=== PATIENT | male | born 1975 | race Caucasian/White ===

== ENCOUNTER 2021-08-30 14:02 | Outpatient (REF) | payer OTHER, SELFPAY ==
--- NOTE | ~2021-08-30 | XR_ITS ---
EXAMINATION: XR CHEST CLINICAL INFORMATION: Chest pain COMPARISON: None TECHNIQUE: 2 views of the chest were obtained. FINDINGS: No significant abnormality is noted involving the heart, lungs, mediastinum, bony thorax or soft tissues. XR/XR chest 2V IMPRESSION: Unremarkable examination.
== END 2021-08-30 14:03 | disposition home or self-care (01) ==
LOC: HO.XRAY 14:02
PROVIDERS: PCP Physician Assistant; Visit Provider Nurse Practitioner Family
DX: R07.89 Other chest pain (principal)
CPT/HCPCS: 71046

== ENCOUNTER 2021-08-31 08:43 | Outpatient (REF) | payer OTHER, SELFPAY ==
[2021-08-31 09:07] LABS: MANUAL DIFF FLAG NO
[2021-08-31 09:21] LABS: Basophils Absolute Auto 0.1 X10*3/uL (0.0-0.2); Basophils Percent Auto 0.6 % (0-2); Eosinophils Absolute Auto 0.1 X10*3/uL (0.0-0.4); Eosinophils Percent Auto 1.1 % (0-4); Imm Gran Abs Auto 0.08 X10*3/uL (0.00-0.03); Imm Gran Pct Auto 0.8 % (0.0-0.4); Lymphocytes Absolute Auto 1.6 X10*3/uL (1.2-4.9); Mean Corpuscular HGB Conc 34.1 g/dl (31.0-36.0); Mean Corpuscular Volume 85.1 fL (80.0-98.0); Mean Platelet Volume 8.6 fL (9.4-12.4); Monocytes Absolute Auto 0.6 X10*3/uL (0.1-1.2); Monocytes Percent Auto 5.4 % (2-11); Neutrophils Absolute Auto 8.1 x10*3/uL (2.0-8.3); Neutrophils Percent Auto 77.1 % (45-73); Platelet Count 533 X10*3/uL (160-400); Red Blood Count 5.17 X10*6/uL (4.60-5.80); Red Cell Distribution Width 13.9 % (11.0-16.0); White Blood Count 10.6 X10*3/uL (4.8-10.8)
[2021-08-31 09:48] LABS: Alanine Aminotransferase 35 U/L (0-40); Albumin Level 4.5 g/dL (3.5-5.0); Alkaline Phosphatase 82 U/L (39-117); Anion Gap 13 (12-20); Aspartate Amino Transferase 17 U/L (5-37); Bilirubin Total 0.4 mg/dL (0.0-1.0); Blood Urea Nitrogen 16 mg/dL (9-16); Calcium 10.5 mg/dL (8.4-10.2); Carbon Dioxide 26 mmol/L (22-29); Chloride 106 mmol/L (96-108); Cholesterol 207 mg/dL; Estimated Glomerular Filt Rate > 60; Glucose Fasting 108 mg/dL (60-99); HDL Cholesterol 44 mg/dL; LDL Cholesterol Calculated 139 mg/dl; Potassium 4.9 mmol/L (3.3-5.1); Sodium 140 mmol/L (135-145); Total Protein 7.5 g/dL (6.5-8.0); Triglycerides 121 mg/dL
[2021-08-31 10:10] LABS: TSH reflex Free T4 0.77 uIU/mL (0.32-4.0); Vitamin D 25-OH Total 26.4 ng/mL (>30)
== END 2021-08-31 08:44 | disposition home or self-care (01) ==
LOC: HO.LAB 08:43
PROVIDERS: PCP Physician Assistant; Visit Provider Nurse Practitioner Family
DX: Z00.00 Encounter for general adult medical examination without abnormal findings (principal); I10 Essential (primary) hypertension; E78.00 Pure hypercholesterolemia, unspecified; F41.9 Anxiety disorder, unspecified; F32.A Depression, unspecified
CPT/HCPCS: 36415; 80053; 80061; 82306; 84443; 85025

== ENCOUNTER 2021-10-18 14:27 | Outpatient (REF) | payer OTHER, SELFPAY ==
[2021-10-18 14:59] LABS: Baso%MD 0.9 %; Eos%MD 1.5 %; Hematocrit 41.1 % (42.0-52.0); IG%MD 0.4 %; Lymph%MD 17.8 %; Mean Corpuscular HGB Conc 34.1 g/dl (31.0-36.0); Mean Corpuscular Hemoglobin 29.1 pg (27.0-33.0); Mean Corpuscular Volume 85.4 fL (80.0-98.0); Mean Platelet Volume 9.4 fL (9.4-12.4); Neut%MD 72.4 %; Platelet Count 470 X10*3/uL (160-400); Red Blood Count 4.81 X10*6/uL (4.60-5.80); Red Cell Distribution Width 14.2 % (11.0-16.0); White Blood Count 10.6 X10*3/uL (4.8-10.8)
[2021-10-18 15:37] LABS: Band Neutrophils Percent 1 % (3-5); Basophils Abs Manual 0.4 X10*3/uL (0.0-0.2); Basophils Percent Manual 4 % (0-2); Eosinophils Absolute Manual 0.1 X10*3/uL (0.0-0.4); Eosinophils Percent Manual 1 % (0-4); Lymphocytes Absolute Manual 1.2 X10*3/uL (1.2-4.9); Lymphocytes Percent Manual 11 % (20-40); Monocytes Absolute Manual 0.5 X10*3/uL (0.1-1.2); Monocytes Percent Manual 5 % (2-11); Neutrophils Absolute Manual 8.4 X10*3/uL (2.0-8.3); Neutrophils Percent Manual 78 % (45-73); Platelet Estimate NORMAL (NORMAL); Platelet Morphology Comment NORMAL; RBC Morphology NORMAL
[2021-10-18 15:44] LABS: Ferritin 58 ng/mL (20-250)
== END 2021-10-18 14:28 | disposition home or self-care (01) ==
LOC: HO.LAB 14:27
PROVIDERS: PCP Physician Assistant; Visit Provider Nurse Practitioner Family
DX: D75.839 Thrombocytosis, unspecified (principal)
CPT/HCPCS: 36415; 82728; 85007; 85027

== ENCOUNTER 2021-11-02 07:44 | Outpatient (REF) | payer OTHER, SELFPAY ==
[2021-11-02 09:31] LABS: Baso%MD 0.4 %; Eos%MD 1.1 %; Hematocrit 43.1 % (42.0-52.0); Hemoglobin 14.9 g/dl (14.0-18.0); IG%MD 0.5 %; Lymph%MD 14.8 %; Mean Corpuscular HGB Conc 34.6 g/dl (31.0-36.0); Mean Corpuscular Hemoglobin 29.5 pg (27.0-33.0); Mean Corpuscular Volume 85.3 fL (80.0-98.0); Mean Platelet Volume 9.3 fL (9.4-12.4); Mono%MD 5.4 %; Neut%MD 77.8 %; Platelet Count 486 X10*3/uL (160-400); Red Blood Count 5.05 X10*6/uL (4.60-5.80); Red Cell Distribution Width 13.9 % (11.0-16.0); White Blood Count 9.4 X10*3/uL (4.8-10.8)
[2021-11-02 09:51] LABS: Alanine Aminotransferase 37 U/L (0-40); Albumin Level 4.4 g/dL (3.5-5.0); Alkaline Phosphatase 85 U/L (39-117); Anion Gap 15 (12-20); Aspartate Amino Transferase 19 U/L (5-37); Bilirubin Direct 0.3 mg/dL (0.0-0.5); Bilirubin Total 0.9 mg/dL (0.0-1.0); Blood Urea Nitrogen 15 mg/dL (9-16); Calcium 10.7 mg/dL (8.4-10.2); Carbon Dioxide 25 mmol/L (22-29); Chloride 103 mmol/L (96-108); Estimated Glomerular Filt Rate > 60; Glucose Random 97 mg/dL (60-115); Iron 134 mcg/dL (45-160); Percent Iron Saturation 34 % (15-50); Potassium 4.7 mmol/L (3.3-5.1); Sodium 138 mmol/L (135-145); Total Iron Binding Capacity 392 mcg/dL (228-428); Total Protein 7.5 g/dL (6.5-8.0); Unsaturated Iron Binding 258 ug/dL
[2021-11-02 10:11] LABS: Ferritin 72 ng/mL (20-250)
[2021-11-02 11:32] LABS: Atypical Lymph Absolute Manual 0.1 x10*3/uL; Atypical Lymphs Percent Manual 1 % (0-6); Band Neutrophils Percent 0 % (3-5); Basophils Abs Manual 0.1 X10*3/uL (0.0-0.2); Basophils Percent Manual 1 % (0-2); Eosinophils Absolute Manual 0.1 X10*3/uL (0.0-0.4); Eosinophils Percent Manual 1 % (0-4); Lymphocytes Absolute Manual 1.6 X10*3/uL (1.2-4.9); Lymphocytes Percent Manual 17 % (20-40); Monocytes Absolute Manual 0.6 X10*3/uL (0.1-1.2); Monocytes Percent Manual 6 % (2-11); Neutrophils Percent Manual 74 % (45-73)
[2021-11-02 11:33] LABS: Platelet Estimate SLIGHTLY INCREASED (NORMAL); Platelet Morphology Comment NORMAL; RBC Morphology NORMAL
[2021-11-03 16:01] LABS: Calcium (PTHI) 10.4 mg/dL (8.6-10.3); PTHI 26 pg/mL (14-64)
[2021-11-04 20:36] LABS: IgA 180 mg/dL (47-310); IgG 1043 mg/dL (600-1640); IgM 100 mg/dL (50-300)
== END 2021-11-02 07:45 | disposition home or self-care (01) ==
LOC: HO.LAB 07:44
PROVIDERS: Internal Medicine Medical Oncology; PCP Physician Assistant; Visit Provider Physician Assistant
DX: R10.12 Left upper quadrant pain (principal); E83.52 Hypercalcemia
CPT/HCPCS: 36415; 80053; 80076; 82248; 82728; 82784; 83540; 83970; 85007; 85027; 86334

== ENCOUNTER 2021-11-09 07:44 | Outpatient (RCR) | payer OTHER, SELFPAY ==
--- NOTE | 2021-11-09 09:45 | MHC.PT.EP ---
[facility] [place] Office [place] Office [place] Office [address] Michael Castañeda [address] [phone] F: [phone] F: [phone] F: [phone] F: [phone] Physical Therapy Plan of Care Date of Evaluation: Date of Surgery: Diagnosis: STRAIN OF MUSCLES,FASCIA AND TENDON AT SHOULDER Assessment: 46 YO MALE REF TO PT W PROGRESSIVE BILAT PARASCAP/ SH PAIN. HE IS RIGHT HAND DOMINANT- OBJECTIVELY, Pt HAS DECR STRENGTH IN SH ABD AND ER, (+) SCAPULAR WINGING Rt > Lt; (+) SOFT TISSUE IRRIT W TrPS AYDIN UT/ PARSCAP/ POST RC, AND PAIN IN GLOBAL PARASCAP/ POST RC. FUNCTIONAL LIMITATIONS INCLUDE LIMITED REACH/ CARRY/ LIFTING, PROLONGED SITTING, OR ADLS REQ CERV/ UPPER TRUNK ROTATION (DRIVING)- HE CURRENTLY HAS BEEN DOING CARPENTRY SIDEWORK . Of NOTE, Pt MENTIONED RECENT PASSING OF HER FATHER AND HIS INVOLVEMENT W HOSPICE AND MANAGING HIS GRIEF, WHICH HAS INFLUENCED HIS TISSUE TENSION- HE REASSURED HE F/U REGULARLY W HIS MD. Pt WOULD BENEFIT FROM PT TO ADDRESS THE ABOVE FINDINGS, PAIN MGMT, DEV SELF- SX MGMT STRATEGIES, INCREASE SCAP STAB/SRENGTH , AND ASSIST Pt W RETRUNING TO REG LEVEL OF FUNCTION/ WORK TOLERANCE. Frequency and Duration: The patient will be seen 2 x WK x 4 WKS Short Term Goals: *Pt INDEP W SELF-CORRECT POSTURE / BODY MECHANICS TO NEUTRAL IN VARIED POSTURES IN 1 wk *Pt'S SH/ PARASCAP PAIN DECR TO 2-3/10 W REG ADLs IN 2 WKS *Pt DEMON PROPER SCAP / RHOMBOID MM ACTIV IN 1 WK Halfway Goals: *Pt INDEP HEP PROGR AND SELF-SX MGMT STRATEGIES FOR AYDIN SH/ UPPER BACK PAIN IN 4 WKS Pt RESUME REG ADLs TO DEBBIE EVIDENT IN IMPROVED SPADI BY 8-10 POINTS ( AT EVAL 60 /130 ) IN 4 WKS *Pt SIMUL 3:3 ADLs / WORK TASKS W PROPER MECHANICS (DECR SH AND CERV STRAIN) IN 4 WKS *Pt DEMON IMPROVED STRENGTH IN AYDIN SH/ SCAP BY 1/2-1 GRADE IN 4 WKS Treatment Plan: Modalities to reduce pain, spasms and effusion. Manual therapy to restore motion and function. Therapeutic exercise to improve strength and flexibility. Neuromuscular re-education for posture and balance. Therapeutic activities to return to functional activities of daily living. Electronically signed by: Maria T WhittakerPT Please sign and return to therapist. Thank you for your referral.
--- NOTE | 2021-11-29 08:33 | MHC.PT.DC ---
[facility] [place] Office [place] Office [place] Office [address] Michael Castañeda 140 [facility] [phone] F: [phone] F: [phone] F: [phone] F: [phone] Physical Therapy Discharge Report Diagnosis: STRAIN OF MUSCLES,FASCIA AND TENDON AT SHOULDER Date of Surgery: Date of Evaluation: 11/09/21 Date of Discharge: 11/29/21 Treatments to Date: 1 Cancellations to Date: 2 No Shows to Date: 3 Discharge Status: Visit Non-compliance Discharge Summary: AT INITIAL PT POLO Pt PRESENTED AND APPEARED TO BE A GOOD CANDIDATE FOR PT- HE HAS NOT ATTENDED ANY SCHED PT APPTS, DESPITE OUR PHONE CALLS AND REMINDERS. HE IS D/C THIS DATE IN ACCORDANCE W OUR DEPT NO-SHOW POLICY. HE DID NOT MEET HIS GOALS. Electronically signed by: Maria T WhittakerPT Please sign and return to therapist. Thank you for your referral.
== END 2021-11-29 08:32 | disposition home or self-care (01) ==
LOC: HO.PT 07:44
PROVIDERS: PCP Physician Assistant; Visit Provider Physician Assistant
DX: S46.811D Strain of other muscles, fascia and tendons at shoulder and upper arm level, right arm, subsequent encounter (principal); S46.812D Strain of other muscles, fascia and tendons at shoulder and upper arm level, left arm, subsequent encounter
CPT/HCPCS: 97110; 97162

== ENCOUNTER 2021-11-12 08:38 | Outpatient (REF) | payer OTHER, SELFPAY ==
--- NOTE | ~2021-11-12 | US_ITS ---
EXAMINATION: US ABDOMEN COMPLETE CLINICAL INFORMATION: Left upper quadrant pain, thrombocytosis. Question splenomegaly. COMPARISON: None TECHNIQUE: Real-time imaging of the abdominal viscera. FINDINGS: PANCREAS: Normal. ABDOMINAL AORTA: The proximal, mid, and distal segments are normal in caliber. INFERIOR VENA CAVA: Visualized portions are normal. LIVER: The liver is normal in size. The liver contour is normal. There is diffuse hepatic cysts increased echogenicity with areas of focal fatty sparing adjacent to gallbladder. No focal hepatic lesion. There is no intrahepatic biliary duct dilatation seen. GALLBLADDER: Normal. The gallbladder is physiologically distended without evidence of stones, sludge, polyps, wall thickening or pericholecystic fluid. COMMON BILE DUCT: Normal in caliber measuring 0.4 cm in diameter. RIGHT KIDNEY: Normal. No hydronephrosis. No renal calculi or focal parenchymal lesions. The kidney measures 11.6 cm in maximum dimension. LEFT KIDNEY: Normal. No hydronephrosis. No renal calculi or focal parenchymal lesions. The kidney measures 12.8 cm in maximum dimension. SPLEEN: Normal. The spleen measures 11.6 cm in maximum dimension. FREE FLUID: None. US/US abdomen complete IMPRESSION: Hepatic steatosis with areas of focal fatty sparing adjacent to gallbladder.
== END 2021-11-12 08:39 | disposition home or self-care (01) ==
LOC: HO.HMGCX 08:38
PROVIDERS: PCP Physician Assistant; Visit Provider Physician Assistant
DX: R10.12 Left upper quadrant pain (principal); D75.839 Thrombocytosis, unspecified
CPT/HCPCS: 76700

== ENCOUNTER 2021-12-09 07:54 | Outpatient (REF) | payer OTHER, SELFPAY ==
[2021-12-09 08:55] LABS: Hematocrit 42.9 % (42.0-52.0); Hemoglobin 14.3 g/dl (14.0-18.0); Mean Corpuscular HGB Conc 33.3 g/dl (31.0-36.0); Mean Corpuscular Hemoglobin 29.1 pg (27.0-33.0); Mean Corpuscular Volume 87.2 fL (80.0-98.0); Mean Platelet Volume 9.1 fL (9.4-12.4); Platelet Count 468 X10*3/uL (160-400); Red Blood Count 4.92 X10*6/uL (4.60-5.80); Red Cell Distribution Width 13.6 % (11.0-16.0); White Blood Count 16.3 X10*3/uL (4.8-10.8)
[2021-12-09 09:40] LABS: Vitamin D 25-OH Total 44.7 ng/mL (>30)
[2021-12-09 10:37] LABS: Alanine Aminotransferase 32 U/L (0-40); Albumin Level 4.4 g/dL (3.5-5.0); Alkaline Phosphatase 83 U/L (39-117); Anion Gap 15 (12-20); Aspartate Amino Transferase 17 U/L (5-37); Bilirubin Total 0.8 mg/dL (0.0-1.0); Blood Urea Nitrogen 16 mg/dL (9-16); Calcium 10.4 mg/dL (8.4-10.2); Carbon Dioxide 26 mmol/L (22-29); Chloride 104 mmol/L (96-108); Estimated Glomerular Filt Rate > 60; Glucose Fasting 95 mg/dL (60-99); Potassium 5.2 mmol/L (3.3-5.1); Sodium 140 mmol/L (135-145); Total Protein 7.2 g/dL (6.5-8.0)
[2021-12-09 11:36] LABS: Appearance Urine CLEAR; Color Urine YELLOW; Glucose Urine UA NEG (NEG); Leukocyte Esterase Urine NEG (NEG); Nitrite Urine NEG (NEG); PH 5.5 (5.0-8.0); Specific Gravity - Urine >= 1.030 (1.005-1.025); Urine Blood NEG (NEG); Urine Ketones NEG (NEG); Urine Protein TRACE MG/DL (NEG-TRACE)
== END 2021-12-09 07:55 | disposition home or self-care (01) ==
LOC: HO.LAB 07:54
PROVIDERS: PCP Physician Assistant; Visit Provider Physician Assistant
DX: E83.52 Hypercalcemia (principal); R30.0 Dysuria; I10 Essential (primary) hypertension
CPT/HCPCS: 36415; 80053; 81003; 82306; 85027; 99202

== ENCOUNTER 2021-12-20 07:19 | Outpatient (REF) | payer OTHER, SELFPAY ==
[2021-12-20 07:37] LABS: MANUAL DIFF FLAG NO
[2021-12-20 08:27] LABS: Basophils Absolute Auto 0.1 X10*3/uL (0.0-0.2); Basophils Percent Auto 0.9 % (0-2); Eosinophils Absolute Auto 0.2 X10*3/uL (0.0-0.4); Eosinophils Percent Auto 2.4 % (0-4); Hematocrit 42.1 % (42.0-52.0); Hemoglobin 14.1 g/dl (14.0-18.0); Imm Gran Abs Auto 0.04 X10*3/uL (0.00-0.03); Imm Gran Pct Auto 0.5 % (0.0-0.4); Lymphocytes Absolute Auto 1.2 X10*3/uL (1.2-4.9); Mean Corpuscular HGB Conc 33.5 g/dl (31.0-36.0); Mean Corpuscular Hemoglobin 29.1 pg (27.0-33.0); Mean Corpuscular Volume 86.8 fL (80.0-98.0); Mean Platelet Volume 9.4 fL (9.4-12.4); Monocytes Absolute Auto 0.5 X10*3/uL (0.1-1.2); Monocytes Percent Auto 5.9 % (2-11); Neutrophils Absolute Auto 6.8 x10*3/uL (2.0-8.3); Neutrophils Percent Auto 76.3 % (45-73); Platelet Count 494 X10*3/uL (160-400); Red Blood Count 4.85 X10*6/uL (4.60-5.80); Red Cell Distribution Width 13.4 % (11.0-16.0); White Blood Count 8.9 X10*3/uL (4.8-10.8)
[2021-12-20 09:01] LABS: Albumin Level 4.4 g/dL (3.5-5.0); Anion Gap 11 (12-20); Blood Urea Nitrogen 12 mg/dL (9-16); Calcium 10.1 mg/dL (8.4-10.2); Carbon Dioxide 28 mmol/L (22-29); Chloride 105 mmol/L (96-108); Estimated Glomerular Filt Rate > 60; Glucose Random 108 mg/dL (60-115); Sodium 139 mmol/L (135-145)
[2021-12-21 11:27] LABS: Calcium (PTHI) 10.3 mg/dL (8.6-10.3); PTHI 42 pg/mL (16-77)
== END 2021-12-20 07:20 | disposition home or self-care (01) ==
LOC: HO.LAB 07:19
PROVIDERS: Internal Medicine Endocrinology, Diabetes & Metabolism; PCP Physician Assistant; Visit Provider Physician Assistant
DX: E83.52 Hypercalcemia (principal); I10 Essential (primary) hypertension; D72.829 Elevated white blood cell count, unspecified
CPT/HCPCS: 36415; 80048; 82040; 83970; 85025

== ENCOUNTER 2022-03-04 07:42 | Outpatient (REF) | payer OTHER, SELFPAY ==
--- NOTE | ~2022-03-04 | XR_ITS ---
EXAMINATION: XR ANKLE, RIGHT CLINICAL INFORMATION: M25.571 - Pain in right ankle and joints of right foot COMPARISON: Radiographs right foot 09/23/2019. TECHNIQUE: The right ankle is imaged in 4 views. FINDINGS: The malleoli are intact and the ankle mortise is symmetric. There is no fracture or dislocation or destructive process. Talar dome shows no visible osteochondral lesion. The retrocalcaneal recess is preserved. There is a borderline tiny posterior calcaneal spur. There is spurring from the dorsal talus similar to prior radiographs. XR/XR ankle RT min 3V IMPRESSION: -No fracture, dislocation, or arthropathy. -Tiny posterior calcaneal spur.
== END 2022-03-04 07:43 | disposition home or self-care (01) ==
LOC: HO.HOSX 07:42
PROVIDERS: Visit Provider Physician Assistant
DX: M19.071 Primary osteoarthritis, right ankle and foot (principal)
CPT/HCPCS: 73610; 99202

== ENCOUNTER 2022-09-21 07:10 | Outpatient (REF) | payer OTHER, SELFPAY ==
[2022-09-21 07:42] LABS: Hematocrit 43.6 % (42.0-52.0); Hemoglobin 14.7 g/dl (14.0-18.0); Mean Corpuscular HGB Conc 33.7 g/dl (31.0-36.0); Mean Corpuscular Hemoglobin 28.7 pg (27.0-33.0); Mean Platelet Volume 8.6 fL (9.4-12.4); Platelet Count 488 X10*3/uL (160-400); Red Blood Count 5.13 X10*6/uL (4.60-5.80); Red Cell Distribution Width 13.8 % (11.0-16.0); White Blood Count 12.4 X10*3/uL (4.8-10.8)
[2022-09-21 08:27] LABS: Creatinine Urine 359.88 mg/dL; Microalbum/Creatinine Ratio Ur 10.5 ug/mg cr
[2022-09-21 08:29] LABS: Alanine Aminotransferase 17 U/L (0-40); Albumin Level 4.6 g/dL (3.5-5.0); Alkaline Phosphatase 96 U/L (39-117); Anion Gap 17 (12-20); Aspartate Amino Transferase 12 U/L (5-37); Bilirubin Total 0.7 mg/dL (0.0-1.0); Blood Urea Nitrogen 12 mg/dL (9-16); Calcium 10.5 mg/dL (8.4-10.2); Carbon Dioxide 27 mmol/L (22-29); Chloride 102 mmol/L (96-108); Cholesterol 239 mg/dL; Estimated Glomerular Filt Rate > 60; Glucose Fasting 93 mg/dL (60-99); HDL Cholesterol 46 mg/dL; LDL Cholesterol Calculated 173 mg/dl; Potassium 4.6 mmol/L (3.3-5.1); Sodium 141 mmol/L (135-145); Total Protein 7.4 g/dL (6.5-8.0); Triglycerides 104 mg/dL
[2022-09-21 08:44] LABS: TSH reflex Free T4 0.94 uIU/mL (0.32-4.0)
== END 2022-09-21 07:11 | disposition home or self-care (01) ==
LOC: HO.LAB 07:10
PROVIDERS: Internal Medicine Endocrinology, Diabetes & Metabolism; PCP Physician Assistant; Visit Provider Physician Assistant
DX: I10 Essential (primary) hypertension (principal)
CPT/HCPCS: 36415; 80053; 80061; 82043; 84443; 85027

== ENCOUNTER 2023-07-18 13:18 | Outpatient (AMB) | payer OTHER, SELFPAY ==
--- NOTE | 2023-07-18 13:39 | A.OFFPC_ITS ---
Vital Signs 07/18/23 13:41 Height 6 ft Weight 215 lb 6 oz BMI 29.2 BP 120/62 Blood Pressure Location Lt brachial Position Sitting Pulse 87 Pulse Source Pulse Oximeter Pulse Oximetry (%) 97 Oxygen Delivery Method Room Air Intake Visit Reasons: Chronic back pain Intake Note: Patient is here to follow up on Chronic back pain and right foot pain( numbness, tinging). Silver Wrapper Required: No Skin Pass Operator: Not Required per policy Accompanied by: Self / Same As Patient Allergies No Known Allergies Allergy (Verified 07/18/23 13:40) Tobacco use date assessed: 07/18/23 Dental Screening Dental Screen Date: 07/18/23 Did you have a dental visit in the last 12 months?: Yes Did you have a dental problem in the last 6 months where you did not have access to dental care?: No Was dental information given to patient?: Patient has dentist HPI HPI Comments History of Present Illness Details 48-year-old male past medical history si gnificant for hypertension, thrombocytosis, anxiety, depression. Patient of [facility] last seen in August. Patient presents today for chronic back pain. Patient reports intermittent back pains for few months. Patient states he has right-sided lumbar back pain radiating down right leg. Patient states occasionally feels like both legs are falling asleep, tingling feeling. Denies bilateral extremity leg numbness or weakness denies any bowel or bladder incontinence. Patient denies any acute injury or falls. Patient previously prescribed naproxen 500 mg b.i.d. for ankle arthritis, requesting refill on this. Refill sent to patient's pharmacy patient also reports difficulty sleeping and rolling over went back get stiff requesting muscle relaxer. Will send cyclobenzaprine 5 mg p.r.n. at for lumbar muscle spasm. [facility] Medical History (Updated 07/18/23 @ 13:54 by WES [place]) Full dentures Anxiety Depression Surgical History (Updated 07/18/23 @ 13:46 by JO Blas) History of dental surgery Family History (Updated 07/18/23 @ 13:46 by JO Blas) Father Lung cancer HTN (hypertension) Hyperlipidemia Colon cancer Mother Breast cancer Hyperlipidemia Thyroid disease IBS (irritable colon syndrome) Maternal Grandmother Paget's bone disease IBS (irritable colon syndrome) Other Mental health disorder (Updated 07/18/23 @ 13:46 by JO Blas) Household Members: Family Housing: House Alcohol intake: current Alcohol intake frequency: holidays/special occasions only Patient Tobacco Use Status: Current everyday Tobacco user Tobacco use type: Cigarette Cigarette Packs Per Day: 1 Cigarettes Per Day: 20 Years Smoked: 20 e-Cigarette/Vaping Use: Former Use Second Hand Smoke Exposure: Yes service: No Current occupational status: other (Self employed) Cognitive needs: No Hearing needs: No Vision needs: No Questionnaire Thrive Questionnaire Date Thrive assessed: 09/01/22 MARCUS-7 AMB Questionnaire MARCUS-7 Date MARCUS - 7 assessed: 09/01/22 Source: Developed by Drs. Riky Roldan, Saida Grace, José Lusi Sun and colleagues, with an educational albin from [employer]. Review of Systems Const Denies chills, Denies fatigue, Denies fever(s) and Denies poor appetite Eyes Denies no additional complaints ENT Reports Normal hearing present Card Denies chest pain, Denies syncope, Denies rapid heart rate and Denies dyspnea Resp Denies cough and Denies dyspnea GI Denies change in stool character, Denies constipation, Denies diarrhea, Denies nausea and Denies vomiting Denies dysuria, Denies urinary frequency and Denies urinary urgency Musc Reports back pain (Lumbar ) Neuro Reports Normal hearing present, Denies confusion and Denies syncope Psych Denies confusion Endo Denies fatigue Physical exam (Primary Care) Vital Signs: Last Vital Signs Pulse 87 07/18/23 13:41 BP 120/62 07/18/23 13:41 Pulse Ox 97 07/18/23 13:41 Oxygen Delivery Method Room Air 07/18/23 13:41 BMI result Body Mass Index 29.2 Tobacco/Smoking Status: Tobacco use Status Tobacco use date assessed 07/18/23 07/18/23 13:47 Patient Tobacco Use Status Current everyday Tobacco 07/18/23 13:47 Tobacco use type Cigarette 07/18/23 13:47 e-Cigarette/Vaping Use Former Use 07/18/23 13:47 Thrive Assessment: Date of Thrive Assessment Date Thrive assessed 09/01/22 07/18/23 13:47 Const General: No confusion Orientation/consciousness: No confusion HENMT Head: Yes normocephalic and Yes atraumatic Eyes Conjunctivae: conjunctivae normal Chest Chest palpation & inspection: normal inspection of the chest Resp Effort & Inspection: normal respiratory effort Auscultation: clear to auscultation bilaterally, no crackles, no rhonchi and no wheezes Cardio Rate: regular rate Rhythm: regular rhythm Heart sounds: S1 normal heart sound present and S2 normal heart sound present Peripheral pulses: dorsalis pedis present GI Inspection: Yes normal to inspection General: Yes no CVA tenderness Back/Spine/Pelvis Back: no CVA tenderness Thoracic/Lumbar Spine: thoracic and lumbar spine normal to inspection, paraspinal muscle tenderness on the right, No lumbar spinal tenderness and straight leg raise positive (Right sided back pain exacerbated L and R straight leg raise) Pelvis: no sciatic notch tenderness Sacrum: tenderness on the right Neuro General: No confusion Cranial nerves: Yes Normal hearing present Extrem General: No edema Assessment and Plan Assessment & Plan (1) Lumbar back pain: Code(s): M54.50 - Low back pain, unspecified Plan: Naproxen 500 mg b.i.d. sent to patient's pharmacy, patient advised to take medication with food to prevent GI upset. Cyclobenzaprine 5 mg as needed at bedtime sent to patient's pharmacy for lumbar muscle spasm. Lumbar spine x-ray ordered to further evaluate. Referral entered to physical therapy. If no improvement of lumbar back pain following physical therapy being patient continues to have tingling in bilateral lower extremities will consider further imaging with MRI for possible disc problem. (2) Arthritis of right ankle: Code(s): M19.071 - Primary osteoarthritis, right ankle and foot Plan: Patient previously seen by multiple animal care specialist as well as Orthopedic in the past for right foot and ankle pain. Patient requesting new referral for financial specialist, referral entered. Plan Keep scheduled physical exam in August with PCP or follow-up sooner if needed. Orders: Orders PT Evaluation and Treatment Today M54.50 - Low back pain, unspecified XR lumbar spine 2-3V Today M54.50 - Low back pain, unspecified Referrals Podiatry Referral M19.071 - Primary osteoarthritis, right ankle and foot Medications: New cyclobenzaprine 5 mg PO BEDTIME PRN 14 tabs 0RF muscle spasm M54.50 - Low back pain, unspecified Refilled cholecalciferol (vitamin D3) 50 mcg PO DAILY 90 tabs 1RF I10 - Essential (primary) hypertension naproxen 500 mg PO BID 30 days 60 tabs 3RF S93.409A - Sprain of unspecified ligament of unspecified ankle, initial encounter Coding Level of Care Code Est Pt Level 3 (82904) Diagnoses Lumbar back pain M54.50 Arthritis of right ankle M19.071
[2023-07-18 13:41] VITALS: BP 120/62; PULSE 87; O2SAT 97; BMI 29.2
== END 2023-07-18 14:13 | disposition home or self-care (01) ==
PROVIDERS: PCP Physician Assistant; Visit Provider Nurse Practitioner Family
DX: M54.50 Low back pain, unspecified (principal); M19.071 Primary osteoarthritis, right ankle and foot; F41.9 Anxiety disorder, unspecified
CPT/HCPCS: 99213

== ENCOUNTER 2023-09-07 08:50 | Outpatient (AMB) | payer OTHER, SELFPAY ==
[2023-09-07 08:51] VITALS: BP 144/62; PULSE 65; O2SAT 98; BMI 29.4
--- NOTE | 2023-09-07 08:51 | A.OFFPC_ITS ---
Vital Signs 09/07/23 08:51 09/07/23 09:29 Height 6 ft Weight 217 lb BMI 29.4 BP 144/62 H 138/70 Blood Pressure Location Lt brachial Position Sitting Pulse 65 Pulse Source Pulse Oximeter Pulse Oximetry (%) 98 Oxygen Delivery Method Room Air Intake Visit Reasons: Annual Exam Hosiery Mender Required: No Joint Runner: Not Required per policy Accompanied by: Self / Same As Patient Allergies No Known Allergies Allergy (Verified 09/07/23 09:00) Medication List - Last Reconciled 09/07/23 by Colton Hart PA-C cholecalciferol (vitamin D3) 50 mcg PO DAILY cyclobenzaprine 5 mg PO BEDTIME PRN lisinopril 10 mg PO DAILY 90 days lorazepam 1 mg PO DAILY PRN 10 days naproxen 500 mg PO BID 30 days Tobacco use date assessed: 09/07/23 Dental Screening Dental Screen Date: 09/07/23 Did you have a dental visit in the last 12 months?: Yes Did you have a dental problem in the last 6 months where you did not have access to dental care?: No Was dental information given to patient?: Patient has dentist HPI Annual Exam HPI Details Patient is a 48-year-old male here today for routine annual physical. Patient has a past medical history significant for hypertension, generalized anxiety disorder, history of hypercalcemia, tobacco dependency. Concerns--> Right foot pain that has been evident over the last 3 years. He did report remote trauma having a break fall in his foot. Ever since has been having intermittent midfoot pain and swelling. Has gotten several x-rays that did show arthritis. Has used shoe inserts though continues to have right foot pain and swelling. He would like to see a telecommunication equipment repairer. Will send for CT of right foot to evaluate for any not healed occult fractures. .. Hypertension: Blood pressure slightly elevated today in office. Continues on lisinopril 10 mg daily. He reports his blood pressure usually is stable. He d id have pre workout in a couple coffee this morning. .. Tobacco dependency: reports smoking 8 cigs per day, Patient continues to struggle on weaning and completely quitting smoking. Has trialed Chantix without much relief is nicotine cravings. He is interested in nicotine lozenges . Generalized anxiety disorder: Reports his anxiety has been better controlled as he has been more physically active at the gym. He rarely uses lorazepam as he feels his anxiety is much better controlled per. He feels he has a good support network with his family. He is not interested in speaking with a mental health therapist at this time. Colorectal cancer screening; colonoscopy done with Dr gambino in September of 2022, completely normal repeat in 10 years. Vaccines: Up-to-date with COVID, pneumonia and tetanus. Declines flu vaccine PFSH Medical History (Updated 09/07/23 @ 09:48 by Colton Hart PA-C) Leukocytosis Thrombocytosis Full dentures Anxiety Depression Surgical History History of dental surgery Family History Father Lung cancer HTN (hypertension) Hyperlipidemia Colon cancer Mother Breast cancer Hyperlipidemia Thyroid disease IBS (irritable colon syndrome) Maternal Grandmother Paget's bone disease IBS (irritable colon syndrome) Other Mental health disorder Social History (Updated 09/07/23 @ 09:14 by Colton Hart PA-C) Household Members: Family Housing: House Alcohol intake: former Patient Tobacco Use Status: Current everyday Tobacco user Tobacco use type: Cigarette Cigarette Packs Per Day: 1 Cigarettes Per Day: 8 Years Smoked: 20 e-Cigarette/Vaping Use: Former Use Second Hand Smoke Exposure: Yes Substance Use Type: Marijuana service: No 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 needs: No Hearing needs: No Vision needs: No Questionnaire PHQ-9 Over the last 2 weeks, how often have you been bothered by any of the following problems? 1. Little interest or pleasure in doing things: not at all 2. Feeling down, depressed, or hopeless: not at all 3. Trouble falling or staying asleep, or sleeping too much: not at all 4. Feeling tired or having little energy: not at all 5. Poor appetite or overeating: not at all 6. Feeling bad about yourself - or that you are a failure or have let yourself or your family down: not at all 7. Trouble concentrating on things, such as reading the newspaper or watching television: not at all 8. Moving or speaking so slowly that other people could have noticed. Or the op posite - being so fidgety or restless that you have been moving around a lot more than usual: not at all 9. Thoughts that you would be better off or of hurting yourself in some way: not at all Total score: 0 Depression Screening Interpretation: Negative Depression Screening Done: Yes 98203 - PHQ-9 Billing: Yes Source: Developed by Drs. Riky Roldan, Saida Grace, José Luis Sun and colleagues, with an educational albin from [employer]. Thrive Questionnaire Date Thrive assessed: 09/07/23 I am a: Patient What is your living situation today?: I have a steady place to live Within the past 12 months, did the food you bought not last and you didn't have the money to get more?: Never true Within the past 12 months, did you worry whether your food would run out before you got money to buy more?: Never true Do you have trouble paying for medicines?: No Do you have trouble getting transportation to medical appointments?: No Do you have trouble paying your heating and electricity bill?: No Do you have trouble taking care of your child, family member or friend?: No Do you have trouble with day-to-day activities such as bathing, preparing meals, shopping, managing finances, etc.?: No Are you currently unemployed and looking for a job?: No Are you interested in more education?: No Please select the resources that you would like help with: None AUDIT C Alcohol Use Questionnaire (AUDIT-C) 1. How often do you have a drink containing alcohol?: Monthly or less 2. How many drinks containing alcohol do you have on a typical day when you are drinking?: 1 or 2 3. How often do you have six or more drinks on one occasion?: Never Total Score: 1 MARCUS-7 AMB Questionnaire MARCUS-7 Date MARCUS - 7 assessed: 09/07/23 Feeling nervous, anxious, or on edge: 0 = Not at all Not being able to stop or control worryin = Not at all Worrying too much about different things: 0 = Not at all Trouble relaxin = Not at all Being so restless that it is hard to sit still: 0 = Not at all Becoming easily annoyed or irritable: 0 = Not at all Feeling afraid as if something awful might happen: 0 = Not at all Total MARCUS-7 score (0-4 normal; 5-9 mild; 10-14 moderate; 15-21 severe): 0 Source: Developed by Drs. Riky Roldan, Saida Grace, José Luis Sun and colleagues, with an educational albin from [employer]. MARCUS-7 Assessment Billing MARCUS-7 Assessment Tool: MARCUS-7 Assessment 11982 Review of Systems Const Denies excessive sweating, Denies fatigue and Denies headache(s) Eyes Denies loss of vision ENT Denies vertigo, Denies dizziness, Denies headache(s) and Denies sore throat Card Denies chest pain, Denies leg edema and Denies lightheadedness Resp Denies cough, Denies hemoptysis and Denies wheezing GI Denies abdominal pain, Denies melena, Denies constipation, Denies diarrhea and Denies vomiting Denies dysuria, Denies urinary frequency and Denies urinary urgency Musc Denies arthralgias, Denies joint swelling, Denies numbness and Denies tingling Skin/Breast Denies rash and Denies skin ulcer Neuro Denies Abnormal speech present, Denies behavioral changes, Denies vertigo, Denies dizziness, Denies headache(s), Denies loss of vision, Denies memory loss, Denies numbness and Denies tingling Psych Denies anxiety, Denies behavioral changes, Denies depression, Denies memory loss and Denies panic attacks Endo Denies excessive sweating, Denies fatigue, Denies flushing, Denies polydipsia and Denies polyuria Chago/Lymph Denies easy bleeding and Denies easy bruising Aller/Immun Denies wheezing Physical exam (Primary Care) Vital Signs: Last Vital Signs Pulse 65 09/07/23 08:51 BP 144/62 H 09/07/23 08:51 Pulse Ox 98 09/07/23 08:51 Oxygen Delivery Method Room Air 09/07/23 08:51 BMI result Body Mass Index 29.4 Tobacco/Smoking Status: Tobacco use Status Tobacco use date assessed 09/07/23 09/07/23 08:52 Patient Tobacco Use Status Current everyday Tobacco 09/07/23 08:52 Tobacco use type Cigarette 09/07/23 08:52 e-Cigarette/Vaping Use Former Use 09/07/23 08:52 Are you ready to quit: Yes Tobacco cessation counseling provided: Yes Items discussed: Nicotine replacement Relapse Prevention: discussed the importance of a supportive environment, disc ussed negative mood or depression after quitting, weight gain after smoking is common and discussed dietary, exercise and/or lifestyle changes Number of minutes spent counselin CPT code: 54871 - 4-10 Minutes PHQ-9: PHQ-9 Score PHQ-9: Total score 0 09/07/23 08:52 Depression Screening Interpretation: Negative Thrive Assessment: Date of Thrive Assessment Date Thrive assessed 09/07/23 09/07/23 08:52 Const General: healthy appearing, no acute distress, alert and awake Nutritional Appearance: well nourished Orientation/consciousness: oriented to person, oriented to place and oriented to time HENMT Head: Yes normocephalic Ears: TM's normal bilaterally General nose exam: Normal nasal mucous membranes and turbinates present Face and sinus: No sinus tenderness Mouth: Normal oral and palatal mucosa present and tongue normal Teeth and gingiva: dentition normal and gingiva normal Throat: Yes posterior oropharynx normal, Yes tonsils normal and Yes uvula midline Eyes Conjunctivae: conjunctivae normal Sclerae: sclerae normal Pupils: Equal, round and reactive pupils present EOM: EOMs intact bilaterally Direct Ophthalmoscopy: No no photophobia Neck Neck: Yes no lymphadenopathy and Yes no JVD Thyroid: Thyroid normal Carotids: no bruits Chest Chest palpation & inspection: no tenderness Resp Effort & Inspection: normal respiratory effort and not tachypneic Auscultation: no crackles, no rales, no rhonchi and no wheezes Cardio Jugular venous distension: no JVD Rate: regular rate Rhythm: regular rhythm Heart sounds: no murmurs and normal S1 and S2 Bruits: no carotid bruits Peripheral pulses: Peripheral pulses 2+ throughout GI Inspection: Yes normal to inspection, No abdominal wall ecchymosis and No visible herniation Palpation (GI): Soft to palpation, nontender, no hepatomegaly and no splenomegaly Auscultation: normal bowel sounds General: Yes no CVA tenderness Back/Spine/Pelvis Back: no CVA tenderness and No back tenderness Cervical Spine: cervical ROM normal Thoracic/Lumbar Spine: thoracic and lumbar spine normal to inspection, straight leg raise negative bilaterally, No thoraco-lumbar ROM limited and No lumbar spinal tenderness Skin General skin exam: no rashes or lesions noted and dry skin Lesions: no lesions Rashes: no rashes Wounds: no wounds Neuro General: oriented to person, oriented to place and oriented to time Cranial nerves: Yes Equal, round and reactive pupils present Cognition (Neuro): normal cognition Speech: No Abnormal speech present Gait exam (Neuro): Normal gait present Motor exam (neuro): no tremor noted Extrem Right upper extremity: full ROM Left upper extremity: full ROM Right lower extremity: full ROM; no edema Left lower extremity: full ROM; no edema Psych Appearance: grossly normal Mental Status: mental status grossly normal Speech and movement: Normal speech and movement present Affect: normal affect Attitude: cooperative Thought process: Normal thought process present Assessment and Plan Assessment & Plan (1) Physical exam: Comment: BLAKE CRUZ UTD. UTD with eye exam at [facility]. Scheduled for dental exam on 09/03/20 with [facility]. Code(s): Z00.00 - Encounter for general adult medical examination without abnormal findings (2) HTN (hypertension): Code(s): I10 - Essential (primary) hypertension Qualifiers: Hypertension type: primary hypertension Qualified Code(s): I10 - Essential (primary) hypertension Plan: Patient's blood pressure acceptable today in office. Will continue his current dose of lisinopril with goal blood pressure to be below 140/90. (3) Smoker: Code(s): F17.200 - Nicotine dependence, unspecified, uncomplicated Plan: Patient does understand he needs to quit smoking and will try to wean on his own with the use of nicotine replacement. (4) Swelling of right foot: Code(s): M79.89 - Other specified soft tissue disorders Plan: As per HPI patient has chronic intermittent right midfoot pain. This Hossein from being more physically active. Has gotten evaluation with x-ray and has use shoe inserts though has not been effective. Try for CT of right foot to evaluate for any occult stress fracture in midfoot. (5) Right foot pain: Code(s): M79.671 - Pain in right foot (6) Anxiety and depression: Code(s): F41.9 - Anxiety disorder, unspecified; F32.A - Depression, unspecified Plan: Patient reports his anxiety and depression has been fairly well controlled with lifestyle. Has been more physically active and going to the gym several times a week. He reports he rarely has to use lorazepam. Orders: Orders Lipid Panel Today I10 - Essential (primary) hypertension Microalbumin, Random (w Creat) Today I10 - Essential (primary) hypertension CT foot RT wo IV con Today M79.671 - Pain in right foot, M79.89 - Other specified soft tissue disorders Complete Blood Count no Diff Today D75.839 - Thrombocytosis, unspecified Comprehensive [place]. Panel Fast Today I10 - Essential (primary) hypertension Referrals Podiatry Referral M19.071 - Primary osteoarthritis, right ankle and foot, M79.671 - Pain in right foot, M79.89 - Other specified soft tissue disorders Medications: New nicotine (polacrilex) 2 mg buccal Q8H 30 days PRN 81 ea 1RF nicotine cravings F17.200 - Nicotine dependence, unspecified, uncomplicated Coding Level of Care Code Est Pt Prev Care 40-64y(31409) Diagnoses Physical exam Z00.00 Primary hypertension I10 Hypertension type: primary hypertension Smoker F17.200 Swelling of right foot M79.89 Right foot pain M79.671 Anxiety and depression F41.9; F32.A Additional Codes Vital Signs *Quality* - CPT code: 21269 - 4-10 Minutes ([id number]) MARCUS-7 Assessment Billing - MARCUS-7 Assessment Tool: MARCUS-7 Assessment 77372 ([id number])
[2023-09-07 09:29] VITALS: BP 138/70
== END 2023-09-07 09:41 | disposition home or self-care (01) ==
PROVIDERS: Visit Provider Physician Assistant
DX: Z00.00 Encounter for general adult medical examination without abnormal findings (principal); I10 Essential (primary) hypertension; M79.671 Pain in right foot; F17.210 Nicotine dependence, cigarettes, uncomplicated; M79.89 Other specified soft tissue disorders; F41.9 Anxiety disorder, unspecified; F32.A Depression, unspecified
CPT/HCPCS: 99396

== ENCOUNTER 2023-10-17 08:37 | Outpatient (REF) | payer OTHER, SELFPAY ==
--- NOTE | ~2023-10-17 | CT_ITS ---
EXAMINATION: CT FOOT WITHOUT CONTRAST, RIGHT CLINICAL INFORMATION: Several year history of right foot pain and intermittent swelling. Prior trauma. Evaluate for a fracture. COMPARISON: Right ankle radiographs dated 03/04/2022 and right foot radiographs dated 09/23/2019. TECHNIQUE: Contiguous axial CT images of the right foot were obtained without contrast. Multiplanar reformats were provided and reviewed. This CT examination was performed using dose optimization techniques as appropriate, variously including the following: *Automated exposure control *Adjustment of mA and/or kV according to patient size (this includes techniques or standardized protocols for targeted exams where dose is matched to indication/reason for exam; i.e. extremities or head) *Use of iterative reconstruction technique DLP: 144 mGy-cm FINDINGS: Focal cortical irregularity at the lateralmost aspect of the talar dome measuring approximately 1.0 x 0.7 cm (AP x ML), with adjacent linear sclerosis. This protrudes from the talar dome by approximately 0.2 cm. Findings likely represent sequela of a healed, remote fracture. Corticated ossification adjacent to the lateral malleolus consistent with a remote, unfused fracture fragment anteriorly. Findings are likely related to a remote anterior talofibular ligament injury. No acute fracture or dislocation. The ankle mortise is maintained. Mild tibiotalar joint space narrowing with small marginal osteophytes. Additional mild joint space narrowing throughout the subtalar, talonavicular, cuneonavicular, and tarsometatarsal joints, with small marginal osteophytes. No concerning lytic or blastic osseous lesion. Tiny plantar and dorsal calcaneal enthesophytes. No abnormal soft tissue mass or fluid collection. The visualized flexor and extensor tendons are grossly intact; however, evaluation is significantly limited on CT examination. No significant joint effusion. CT/CT foot RT wo IV con IMPRESSION: 1. Focal cortical irregularity at the lateralmost aspect of the talar dome measuring up to 1.0 cm with adjacent linear sclerosis. Findings likely represent sequela of a healed, remote fracture. 2. Corticated ossification adjacent to the lateral malleolus consistent with a remote, unfused fracture fragment. Findings are likely related to a remote anterior talofibular ligament injury. 3. No acute fracture or dislocation. 4. [id number] osteoarthritis throughout the ankle and foot.
== END 2023-10-17 08:38 | disposition home or self-care (01) ==
LOC: HO.CT 08:37
PROVIDERS: PCP Physician Assistant; Visit Provider Physician Assistant
DX: M79.89 Other specified soft tissue disorders (principal); M79.671 Pain in right foot
CPT/HCPCS: 73700

== ENCOUNTER 2023-11-01 09:02 | Outpatient (AMB) | payer OTHER, SELFPAY ==
--- NOTE | 2023-11-01 09:19 | MHC.PC.OV ---
Vital Signs 11/01/23 09:20 Height 6 ft Weight 215 lb BMI 29.2 BP 122/72 Blood Pressure Location Lt brachial Position Sitting Respiration 16 Pulse 56 Pulse Source Pulse Oximeter Pulse Oximetry (%) 98 Oxygen Delivery Method Room Air Intake Visit Reasons: Cardiology Intake Note: The patient is here for a follow-up appointment after heart surgery. 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 Accompanied by: Self / Same As Patient Allergies No Known Allergies Allergy (Verified 11/01/23 09:54) Medication List - Last Reconciled 11/01/23 by Colton Hart PA-C aspirin 81 mg PO DAILY atorvastatin 80 mg PO DAILY cholecalciferol (vitamin D3) 50 mcg PO DAILY clopidogrel 75 mg PO DAILY cyclobenzaprine 5 mg PO TID PRN 2 days lisinopril 10 mg PO DAILY 90 days lorazepam 1 mg PO DAILY PRN 10 days metoprolol tartrate 50 mg PO BID nicotine 1 patch transdermal DAILY nicotine (polacrilex) 2 mg buccal Q8H PRN 30 days Tobacco use date assessed: 09/07/23 [facility] Cardiology HPI Details Patient is a 48 year male here today for hospital discharge follow-up. Patient has a past medical history significant for hypertension, hyperlipidemia and tobacco dependency. Patient was seen at the [facility] for acute burning type chest pain. He was found to have an NSTEMI and was sent in for cardiac catheterization that revealed three-vessel disease. He underwent an urgent coronary artery bypass. No complications postoperatively. During his hospitalization he was found to have a 2 mm pulmonary nodule on CT chest. This will be followed in 1 year. Would like pulmonology referral He is now seeing Cardiology outpatient at [facility]. And will be starting cardiac rehab this week. He will need to continue dual anti-platelet therapy for 1 year. [facility] Medical History Leukocytosis Thrombocytosis Full dentures Anxiety Depression Surgical History History of dental surgery Family History Father Lung cancer HTN (hypertension) Hyperlipidemia Colon cancer Mother Breast cancer Hyperlipidemia Thyroid disease IBS (irritable colon syndrome) Maternal Grandmother Paget's bone disease IBS (irritable colon syndrome) Other Mental health disorder Social History Household Members: Family Housing: House Alcohol intake: former Patient Tobacco Use Status: Former Tobacco user Tobacco use type: Cigarette Cigarette Packs Per Day: 1 Cigarettes Per Day: 8 Years Smoked: 20 e-Cigarette/Vaping Use: Former Use Second Hand Smoke Exposure: Yes Substance Use Type: Marijuana service: No 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 Riky Roldan, Saida Grace, José Luis Sun and colleagues, with an educational albin from [employer]. Review of Systems Const Reports fatigue and Denies headache(s) Eyes Denies loss of vision ENT Denies vertigo, Denies dizziness, Denies headache(s) and Denies sore throat Card Denies chest pain, Denies leg edema and Denies lightheadedness Resp Denies cough, Denies hemoptysis and Denies wheezing GI Denies abdominal pain, Denies melena, Denies constipation, Denies diarrhea and Denies vomiting Denies dysuria, Denies urinary frequency and Denies urinary urgency Musc Denies arthralgias, Denies joint swelling, Denies numbness and Denies tingling Neuro Denies Abnormal speech present, Denies behavioral changes, Denies vertigo, Denies dizziness, Denies headache(s), Denies loss of vision, Denies memory loss, Denies numbness and Denies tingling Psych Denies anxiety, Denies behavioral changes, Denies depression, Denies memory loss and Denies panic attacks Endo Reports fatigue Chago/Lymph Denies easy bleeding and Denies easy bruising Aller/Immun Denies wheezing Physical exam (Primary Care) Vital Signs: Last Vital Signs Pulse 56 11/01/23 09:20 Resp 16 11/01/23 09:20 BP 122/72 11/01/23 09:20 Pulse Ox 98 11/01/23 09:20 Oxygen Delivery Method Room Air 11/01/23 09:20 BMI result Body Mass Index 29.2 Tobacco/Smoking Status: Tobacco use Status Tobacco use date assessed 09/07/23 11/01/23 09:25 Patient Tobacco Use Status Former Tobacco user 11/01/23 10:01 Tobacco use type Cigarette 11/01/23 09:25 e-Cigarette/Vaping Use Former Use 11/01/23 09:25 Thrive Assessment: Date of Thrive Assessment Date Thrive assessed 09/07/23 11/01/23 09:25 Const General: healthy appearing, no acute distress, alert and awake Nutritional Appearance: well nourished Orientation/consciousness: oriented to person, oriented to place and oriented to time HENMT Ears: TM's normal bilaterally General nose exam: Normal nasal mucous membranes and turbinates present Eyes Conjunctivae: conjunctivae normal Sclerae: sclerae normal Pupils: Equal, round and reactive pupils present Neck Neck: Yes no lymphadenopathy and Yes no JVD Thyroid: Thyroid normal Carotids: no bruits Chest Chest/axillae images: 1. APPEARS TO BE WELL HEALED STERNAL SURGICAL SCAR. Resp Effort & Inspection: normal respiratory effort and not tachypneic Auscultation: no crackles, no rales, no rhonchi and no wheezes Cardio Rate: regular rate Rhythm: regular rhythm Heart sounds: no murmurs and normal S1 and S2 GI Palpation (GI): Soft to palpation, nontender, no hepatomegaly and no splenomegaly Auscultation: normal bowel sounds Skin General skin exam: no rashes or lesions noted and dry skin Neuro General: oriented to person, oriented to place and oriented to time Cranial nerves: Yes Equal, round and reactive pupils present Speech: No Abnormal speech present Gait exam (Neuro): Normal gait present Motor exam (neuro): no tremor noted Extrem Right upper extremity: full ROM Left upper extremity: full ROM Right lower extremity: full ROM; no edema Left lower extremity: full ROM; no edema Psych Mental Status: mental status grossly normal Speech and movement: Normal speech and movement present Affect: normal affect Attitude: cooperative Thought process: Normal thought process present Assessment and Plan Assessment & Plan (1) CAD (coronary artery disease) of artery bypass graft: Code(s): I25.810 - Atherosclerosis of coronary artery bypass graft(s) without angina pectoris Qualifiers: Associated angina: without angina [place] vs. transplanted heart: [place] heart Qualified Code(s): I25.810 - Atherosclerosis of coronary artery bypass graft(s) without angina pectoris Plan: As per HPI patient recently found to have an NSTEMI, coronary catheterization showing multivessel disease. Needed a quadruple bypass. Patient doing well, all surgical scars have healed. Has been started on high potency statin and dual antiplatelet therapy along with metoprolol. He does report feeling somewhat fatigued though likely psych effect of medication. He will be starting cardiac rehab this week. (2) Pulmonary nodule less than 1 cm in diameter with moderate to high risk for malignant neoplasm: Comment: Pulmonary nodule noted 2 mm in August of 2023 Code(s): R91.1 - Solitary pulmonary nodule; Z91.89 - Other specified personal risk factors, not elsewhere classified Plan: Patient previous smoker. Found to have a 2 mm pulmonary nodule on CT while hospitalized for cardiac issue. Will refer to pulmonology (3) HTN (hypertension): Code(s): I10 - Essential (primary) hypertension Qualifiers: Hypertension type: primary hypertension Qualified Code(s): I10 - Essential (primary) hypertension Plan: Patient's blood pressure acceptable today in office. Now on metoprolol 100 mg daily. Advised to continue monitoring blood pressure with goal blood pressure to remain below 140/90. (4) Former smoker: Code(s): Z87.891 - Personal history of nicotine dependence Plan: Per patient he reports completely quitting smoking. I congratulated him on this. Orders: Orders Comprehensive [place]. Panel Fast 11/01/23 I25.810 - Atherosclerosis of coronary artery bypass graft(s) without angina pectoris Complete Blood Count no Diff 11/01/23 I25.810 - Atherosclerosis of coronary artery bypass graft(s) without angina pectoris Microalbumin, Random (w Creat) 11/01/23 I25.810 - Atherosclerosis of coronary artery bypass graft(s) without angina pectoris Lipid Panel 11/01/23 I25.810 - Atherosclerosis of coronary artery bypass graft(s) without angina pectoris Referrals Pulmonology Referral R91.1 - Solitary pulmonary nodule, Z91.89 - Other specified personal risk factors, not elsewhere classified Coding Level of Care Code Est Pt Level 4 (92386) Diagnoses Coronary artery disease involving coronary bypass graft of [place] heart without angina pectoris I25.810 Associated angina: without angina [place] vs. transplanted heart: [place] heart Pulmonary nodule less than 1 cm in diameter with moderate to high risk for malignant neoplasm R91.1; Z91.89 Primary hypertension I10 Hypertension type: primary hypertension Former smoker Z87.891
[2023-11-01 09:20] VITALS: BP 122/72; PULSE 56; RESP 16; O2SAT 98; BMI 29.2
== END 2023-11-01 10:09 | disposition home or self-care (01) ==
PROVIDERS: PCP Physician Assistant; Visit Provider Physician Assistant
DX: I25.810 Atherosclerosis of coronary artery bypass graft(s) without angina pectoris (principal); R91.1 Solitary pulmonary nodule; Z91.89 Other specified personal risk factors, not elsewhere classified; I10 Essential (primary) hypertension; Z87.891 Personal history of nicotine dependence
CPT/HCPCS: 99214

== ENCOUNTER 2023-12-13 10:52 | Outpatient (AMB) | payer OTHER, SELFPAY ==
--- NOTE | 2023-12-13 10:53 | A.OFFPC_ITS ---
Vital Signs 12/13/23 11:03 Height 6 ft BP 112/68 Blood Pressure Location Lt brachial Position Sitting Pulse 60 Pulse Source Pulse Oximeter Pulse Oximetry (%) 97 Oxygen Delivery Method Room Air Intake Visit Reasons: f/u [employer] Computer Consultant Required: No Accompanied by: Self / Same As Patient Allergies No Known Allergies Allergy (Verified 12/13/23 11:05) Medication List - Last Reconciled 12/13/23 by Colton Hart PA-C aspirin 81 mg PO DAILY atorvastatin 80 mg PO DAILY cholecalciferol (vitamin D3) 50 mcg PO DAILY clopidogrel 75 mg PO DAILY cyclobenzaprine 5 mg PO TID PRN 7 days lisinopril 10 mg PO DAILY 90 days lorazepam 1 mg PO DAILY PRN 10 days metoprolol tartrate 50 mg PO BID nicotine 1 patch transdermal DAILY nicotine (polacrilex) 2 mg buccal Q8H PRN 30 days Tobacco use date assessed: 09/07/23 Dental Screening Dental Screen Date: 09/07/23 HPI f/u CAD HPI Details Patient is a 48-year-old male here today for a follow-up visit. Patient has a past medical history significant for hypertension, generalized anxiety disorder, history of hypercalcemia, tobacco dependency. Coronary artery disease: Underwent coronary artery bypass in Aug 2023, doing very well. In cardiac rehab this time. On high potency statin, clopidogrel and metoprolol. Since surgery has been having some upper back pain related to sleeping position. .. Lumbar radiculopathy: Continues to have lower lumbar spine pain with occasional radiculopathy down right lower extremity. Has tried muscle relaxers in physical therapy though has not been effective. Will try for MRI of lumbar spine to evaluate for disc herniation issue. Chronic right foot pain: Now followed by a loss control representative. Patient did get CT of the right foot showing-->Focal cortical irregularity at the lateralmost aspect of the talar dome measuring up to 1.0 cm with adjacent linear sclerosis. Findings likely represent sequela of a healed, remote fracture. Corticated ossification adjacent to the lateral malleolus consistent with a remote, unfused fracture fragment. Findings are likely related to a remote anterior talofibular ligament injury. --> he is considering cortisone injectio n right foot. .. Hypertension: Blood pressure acceptable today in office. He does report his blood pressure has been well managed since starting metoprolol. He does report some fatigue likely related to beta-kobi. He will follow-up with house supervisor to discuss perhaps reducing beta-kobi dosing. Continues on lisinopril 10 mg daily. He reports his blood pressure usually is stable. He did have pre workout in a couple coffee this morning. .. Former smoker: Completely quit smoking since coronary artery bypass.. .. Generalized anxiety disorder: Reports his anxiety has been better controlled.. He rarely uses lorazepam as he feels his anxiety is much better controlled per. He feels he has a good support network with his family. He is not interested in speaking with a mental health therapist at this time. [facility] Medical History Leukocytosis Thrombocytosis Full dentures Anxiety Depression Surgical History History of dental surgery Family History Father Lung cancer HTN (hypertension) Hyperlipidemia Colon cancer Mother Breast cancer Hyperlipidemia Thyroid disease IBS (irritable colon syndrome) Maternal Grandmother Paget's bone disease IBS (irritable colon syndrome) Other Mental health disorder Social History Household Members: Family Housing: House Alcohol intake: former Patient Tobacco Use Status: Former Tobacco user Tobacco use type: Cigarette Cigarette Packs Per Day: 1 Cigarettes Per Day: 8 Years Smoked: 20 e-Cigarette/Vaping Use: Former Use Second Hand Smoke Exposure: Yes Substance Use Type: Marijuana service: No 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 Riky Roldan, Saida Grace, José Luis Sun and colleagues, with an educational albin from [employer]. Review of Systems Const Denies headache(s) Eyes Denies loss of vision ENT Denies vertigo, Denies dizziness, Denies headache(s) and Denies sore throat Card Denies chest pain, Denies leg edema and Denies lightheadedness Resp Denies cough, Denies hemoptysis and Denies wheezing GI Denies abdominal pain, Denies melena, Denies constipation, Denies diarrhea and Denies vomiting Denies dysuria, Denies urinary frequency and Denies urinary urgency Musc Denies arthralgias, Denies joint swelling, Denies numbness and Denies tingling Neuro Denies Abnormal speech present, Denies behavioral changes, Denies vertigo, Denies dizziness, Denies headache(s), Denies loss of vision, Denies memory loss, Denies numbness and Denies tingling Psych Denies anxiety, Denies behavioral changes, Denies depression, Denies memory loss and Denies panic attacks Chago/Lymph Denies easy bleeding and Denies easy bruising Aller/Immun Denies wheezing Physical exam (Primary Care) Vital Signs: Last Vital Signs Pulse 60 12/13/23 11:03 BP 112/68 12/13/23 11:03 Pulse Ox 97 12/13/23 11:03 Oxygen Delivery Method Room Air 12/13/23 11:03 Tobacco/Smoking Status: Tobacco use Status Tobacco use date assessed 09/07/23 12/13/23 10:54 Patient Tobacco Use Status Former Tobacco user 12/13/23 10:54 Tobacco use type Cigarette 12/13/23 10:54 e-Cigarette/Vaping Use Former Use 12/13/23 10:54 Thrive Assessment: Date of Thrive Assessment Date Thrive assessed 09/07/23 12/13/23 10:54 Const General: healthy appearing, no acute distress, alert and awake Nutritional Appearance: well nourished Orientation/consciousness: oriented to person, oriented to place and oriented to time [facility] Ears: TM's normal bilaterally General nose exam: Normal nasal mucous membranes and turbinates present Eyes Conjunctivae: conjunctivae normal Sclerae: sclerae normal Pupils: Equal, round and reactive pupils present Neck Neck: Yes no lymphadenopathy and Yes no JVD Thyroid: Thyroid normal Carotids: no bruits Resp Effort & Inspection: normal respiratory effort and not tachypneic Auscultation: no crackles, no rales, no rhonchi and no wheezes Cardio Rate: regular rate Rhythm: regular rhythm Heart sounds: no murmurs and normal S1 and S2 GI Palpation (GI): Soft to palpation, nontender, no hepatomegaly and no splenomegaly Auscultation: normal bowel sounds Skin General skin exam: no rashes or lesions noted and dry skin Neuro General: oriented to person, oriented to place and oriented to time Cranial nerves: Yes Equal, round and reactive pupils present Speech: No Abnormal speech present Gait exam (Neuro): Normal gait present Motor exam (neuro): no tremor noted Extrem Right upper extremity: full ROM Left upper extremity: full ROM Right lower extremity: full ROM; no edema Left lower extremity: full ROM; no edema Psych Mental Status: mental status grossly normal Speech and movement: Normal speech and movement present Affect: normal affect Attitude: cooperative Thought process: Normal thought process present Assessment and Plan Assessment & Plan (1) CAD (coronary artery disease) of artery bypass graft: Comment: Quadruple bypass done in August 2023 Code(s): I25.810 - Atherosclerosis of coronary artery bypass graft(s) without angina pectoris Qualifiers: Associated angina: without angina [place] vs. transplanted heart: [place] heart Qualified Code(s): I25.810 - Atherosclerosis of coronary artery bypass graft(s) without angina pectoris Plan: As per HPI patient recently found to have an NSTEMI, coronary catheterization showing multivessel disease. Needed a quadruple bypass done in August of 2023 Patient doing well, all surgical scars have healed. Still has some muscle spasms in his chest wall. Has been started on high potency statin and dual antiplatelet therapy along with metoprolol. Goal LDL to be optimally below 70 Continues on cardiac rehab. He does seem to have side effect of fatigue due to his metoprolol and will speak with his house supervisor about reducing dose of beta-kobi. (2) Pulmonary nodule less than 1 cm in diameter with moderate to high risk for malignant neoplasm: Comment: Pulmonary nodule noted 2 mm in August of 2023 Code(s): R91.1 - Solitary pulmonary nodule; Z91.89 - Other specified personal risk factors, not elsewhere classified Plan: Patient previous smoker. Found to have a 2 mm pulmonary nodule on CT while hospitalized for cardiac issue. Has upcoming appointment with pulmonology. (3) HTN (hypertension): Code(s): I10 - Essential (primary) hypertension Qualifiers: Hypertension type: primary hypertension Qualified Code(s): I10 - Essen tial (primary) hypertension Plan: Patient's blood pressure acceptable today in office. Now on metoprolol 100 mg daily, again does report some fatigue. Advised to continue monitoring blood pressure with goal blood pressure to remain below 140/90. (4) Former smoker: Code(s): Z87.891 - Personal history of nicotine dependence Plan: Per patient he reports completely quitting smoking. I congratulated him on this. (5) Upper back pain: Code(s): M54.9 - Dorsalgia, unspecified Plan: Reports upper back pain related to his sleep position secondary to his recent open heart surgery. (6) Lumbar radiculitis: Code(s): M54.16 - Radiculopathy, lumbar region Plan: Continues to have chronic lower lumbar spine pain with intermittent episodes of right radiculopathy. Has done physical therapy and has tried minus relaxers t jf has not been effective. Will try for MRI of his lumbar spine to evaluate for disc herniation. Orders: Orders MR lumbar spine wo con Today M54.16 - Radiculopathy, lumbar region Medications: New methocarbamol 750 mg PO Q8H 10 days PRN 30 tabs 0RF pain (scale score 7-10) M54.16 - Radiculopathy, lumbar region Discontinued cyclobenzaprine Discontinued Reason: Doctor's Order 5 mg PO TID 7 days PRN 21 tabs 0RF muscle spasm M54.50 - Low back pain, unspecified Patient Instructions: Goals: Continue to manage blood pressure below 140/90 and cholesterol LDL optimally below 70 Barriers: Being compliant with medication and appointments. Coding Level of Care Code Est Pt Level 4 (12097) Diagnoses Coronary artery disease involving coronary bypass graft of [place] heart without angina pectoris I25.810 Associated angina: without angina [place] vs. transplanted heart: [place] heart Pulmonary nodule less than 1 cm in diameter with moderate to high risk for malignant neoplasm R91.1; Z91.89 Primary hypertension I10 Hypertension type: primary hypertension Former smoker Z87.891 Upper back pain M54.9 Lumbar radiculitis M54.16
[2023-12-13 11:03] VITALS: BP 112/68; PULSE 60; O2SAT 97
== END 2023-12-13 11:43 | disposition home or self-care (01) ==
PROVIDERS: PCP Physician Assistant; Visit Provider Physician Assistant
DX: I25.810 Atherosclerosis of coronary artery bypass graft(s) without angina pectoris (principal); R91.1 Solitary pulmonary nodule; Z91.89 Other specified personal risk factors, not elsewhere classified; I10 Essential (primary) hypertension; Z87.891 Personal history of nicotine dependence; M54.9 Dorsalgia, unspecified; M54.16 Radiculopathy, lumbar region
CPT/HCPCS: 99214

== ENCOUNTER 2023-12-19 09:09 | Outpatient (AMB) | payer OTHER, SELFPAY ==
--- NOTE | 2023-12-19 09:17 | MHC.OFFVIS ---
Vital Signs 12/19/23 09:18 Height 6 ft Weight 213 lb BMI 28.9 BP 102/72 Blood Pressure Location Rt brachial Position Sitting Pulse 55 Pulse Source Doppler Pulse Oximetry (%) 98 Oxygen Delivery Method Room Air Intake Visit Reasons: solitary pulmonary nodule Allergies No Known Allergies Allergy (Verified 12/13/23 11:05) HPI HPI solitary pulmonary nodule: Details: 48-year-old gentleman, former 25-30 pack-year smoker, quit 2022 with recent quadruple bypass referred for evaluation of pulmonary emphysema and pulmonary nodule noted on CT scan. Patient denies dyspnea on exertion, cough or wheezing. He does have history of lung cancer in his mother. denies prior personal history of lung disease. FORMERLY [facility] Medical History Leukocytosis Thrombocytosis Full dentures Anxiety Depression Surgical History History of dental surgery Family History Father Lung cancer HTN (hypertension) Hyperlipidemia Colon cancer Mother Breast cancer Hyperlipidemia Thyroid disease IBS (irritable colon syndrome) Maternal Grandmother Paget's bone disease IBS (irritable colon syndrome) Other Mental health disorder Social History Household Members: Family Housing: House Alcohol intake: former Patient Tobacco Use Status: Former Tobacco user Tobacco use type: Cigarette Cigarette Packs Per Day: 1 Cigarettes Per Day: 8 Years Smoked: 20 e-Cigarette/Vaping Use: Former Use Second Hand Smoke Exposure: Yes Substance Use Type: Marijuana service: No 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 needs: No Hearing needs: No Vision needs: No Review of Systems Const Denies daytime sleepiness, Denies excessive sweating, Denies fatigue, Denies fever(s), Denies lethargy, Denies malaise, Denies night sweats, Denies snoring and Denies weight loss Eyes Denies blurry vision and Denies itchy eyes ENT Denies nasal congestion, Denies post nasal drip, Denies sinus pain, Denies sinus pressure and Denies other ( Thrush) Card Denies chest pain, Denies pedal edema, Denies dyspnea, Denies orthopnea and Denies paroxysmal nocturnal dyspnea Resp Denies cough, Denies hemoptysis, Denies excessive phlegm production, Denies dyspnea, Denies snoring and Denies wheezing GI Denies abdominal pain and Denies heartburn Musc Denies myalgias, Denies arthralgias and Denies joint swelling Skin/Breast Denies rash Neuro Denies memory loss and Denies seizure-like activity Psych Denies abnormal sleep pattern, Denies anxiety and Denies memory loss Endo Denies excessive sweating, Denies fatigue and Denies heat intolerance Chago/Lymph Denies easy bruising Aller/Immun Denies itchy eyes, Denies seasonal rhinorrhea and Denies wheezing Physical Exam Vital Signs: Last Vital Signs Pulse 55 12/19/23 09:18 BP 102/72 12/19/23 09:18 Pulse Ox 98 12/19/23 09:18 Oxygen Delivery Method Room Air 12/19/23 09:18 BMI result Body Mass Index 28.9 Const General: no acute distress and alert Nutritional Appearance: not obese Orientation/consciousness: Other orientation findings ( oriented) HEENT Head: Yes atraumatic Eyes General: appearance normal, both eyes and all related structures Sclerae: sclerae normal EOM: EOMs intact bilaterally Neck Neck: Yes supple Lymphatic: no lymphadenopathy noted Resp Effort & Inspection: normal respiratory effort and no use of accessory muscles Auscultation: clear to auscultation bilaterally Cardio Rate: regular rate Rhythm: regular rhythm Heart sounds: no gallops, no murmurs and no rubs Skin General skin exam: other ( warm) Extrem General: No clubbing, No cyanosis and No edema Assessment & Plan Assessment & Plan (1) Pulmonary emphysema: Code(s): J43.9 - Emphysema, unspecified Category: Medical Plan: Pulmonary emphysema clinically symptomatic. Will obtain pulmonary function test. (2) Pulmonary nodule less than 1 cm in diameter with moderate to high risk for malignant neoplasm: Comment: Pulmonary nodule noted 2 mm in August of 2023 Code(s): R91.1 - Solitary pulmonary nodule; Z91.89 - Other specified personal risk factors, not elsewhere classified Category: Medical Plan: Pulmonary nodule in high-risk patient, will repeat CT chest in 6 months. Orders: Orders CT chest wo IV con 05/30/24 R91.1 - Solitary pulmonary nodule, Z91.89 - Other specified personal risk factors, not elsewhere classified PFT pulmonary function test Today J43.9 - Emphysema, unspecified
[2023-12-19 09:18] VITALS: BP 102/72; PULSE 55; O2SAT 98; BMI 28.9
== END 2023-12-19 09:37 | disposition home or self-care (01) ==
PROVIDERS: PCP Physician Assistant; Visit Provider Internal Medicine Pulmonary Disease
DX: J43.9 Emphysema, unspecified (principal); R91.1 Solitary pulmonary nodule; Z91.89 Other specified personal risk factors, not elsewhere classified
CPT/HCPCS: 99204

== ENCOUNTER → 2023-12-19 09:09 | Outpatient (BNVA) | payer OTHER, SELFPAY | PROVIDERS: PCP Physician Assistant; Visit Provider Internal Medicine Pulmonary Disease | DX: J43.9 Emphysema, unspecified (principal); R91.1 Solitary pulmonary nodule; Z91.89 Other specified personal risk factors, not elsewhere classified | CPT/HCPCS: 99202 ==

== ENCOUNTER 2024-03-19 10:05 | Outpatient (AMB) | payer OTHER, SELFPAY ==
--- NOTE | 2024-03-19 10:07 | MHC.PC.OV ---
Vital Signs 03/19/24 10:08 Height 6 ft Weight 209 lb BMI 28.3 BP 118/60 Blood Pressure Location Lt brachial Position Sitting Pulse 67 Pulse Source Pulse Oximeter Pulse Oximetry (%) 97 Oxygen Delivery Method Room Air Intake Visit Reasons: 3mof\u Toll Mechanic Required: No Accompanied by: Self / Same As Patient Allergies No Known Allergies Allergy (Verified 03/19/24 10:15) Medication List - Last Reconciled 03/19/24 by Colton Hart PA-C aspirin 81 mg PO DAILY 90 days atorvastatin 80 mg PO DAILY cholecalciferol (vitamin D3) 50 mcg PO DAILY clopidogrel 75 mg PO DAILY cyclobenzaprine 5 mg PO BEDTIME 15 days ezetimibe 10 mg PO DAILY lorazepam 0.5 mg PO BID PRN 15 days metoprolol tartrate 50 mg PO BID nicotine 1 patch transdermal DAILY nicotine (polacrilex) 2 mg buccal Q2H PRN 15 days trazodone 50 mg PO BEDTIME 30 days Tobacco use date assessed: 09/07/23 Dental Screening Dental Screen Date: 09/07/23 HPI 3mof\u HPI Details Patient is a 49-year-old male here for a follow-up visit. . Patient has a past medical history significant for hypertension, generalized anxiety disorder, history of hypercalcemia, tobacco dependency. -Concern-> he reports he continues to suffer with anxiety. He reports his anxiety has been worse since his coronary artery bypass. He does report using lorazepam in the past which did offer him significant relief of his anxiety symptoms. He often has trouble sleeping and only gets 2-3 hours of restful sleep at night. Coronary artery disease: Underwent coronary artery bypass in Aug 2023, doing very well. In cardiac rehab this time. On high potency statin, clopidogrel and metoprolol. He has followed up with his frame stylist in [place] in did undergo cardiac stress test which apparently was normal. Since surgery has been having some upper back pain related to sleeping position. He has mostly stopped smoking though does admit to slipping up at times and having a cigarette, he believes it is due to his stress and anxiety he smokes cigarettes. Pulmonary nodule: Followed by [place] pulmonology and will be due for pulmonary function testing. Has a pulmonary nodule be with serial CT scans. .. Generalized anxiety disorder: Reports his anxiety has been better controlled.. He rarely uses lorazepam as he feels his anxiety is much better controlled per. He feels he has a good support network with his family. He is not interested in speaking with a mental health therapist at this time. FORMERLY [facility], [facility] Medical History Leukocytosis Thrombocytosis Full dentures Anxiety Depression Surgical History History of dental surgery Family History Father Lung cancer HTN (hypertension) Hyperlipidemia Colon cancer Mother Breast cancer Hyperlipidemia Thyroid disease IBS (irritable colon syndrome) Maternal Grandmother Paget's bone disease IBS (irritable colon syndrome) Other Mental health disorder Social History Household Members: Family Housing: House Alcohol intake: former Patient Tobacco Use Status: Former Tobacco user Tobacco use type: Cigarette Cigarette Packs Per Day: 1 Cigarettes Per Day: 8 Years Smoked: 20 e-Cigarette/Vaping Use: Former Use Second Hand Smoke Exposure: Yes Substance Use Type: Marijuana service: No 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 Riky Roldan, Saida Grace, José Luis Sun and colleagues, with an educational albin from [employer]. Review of Systems Const Denies headache(s) Eyes Denies loss of vision ENT Denies vertigo, Denies dizziness, Denies headache(s) and Denies sore throat Card Denies chest pain, Denies leg edema and Denies lightheadedness Resp Denies cough, Denies hemoptysis and Denies wheezing GI Denies abdominal pain, Denies melena, Denies constipation, Denies diarrhea and Denies vomiting Denies dysuria, Denies urinary frequency and Denies urinary urgency Musc Denies arthralgias, Denies joint swelling, Denies numbness and Denies tingling Neuro Denies Abnormal speech present, Denies behavioral changes, Denies vertigo, Denies dizziness, Denies headache(s), Denies loss of vision, Denies memory loss, Denies numbness and Denies tingling Psych Denies anxiety, Denies behavioral changes, Denies depression, Denies memory loss and Denies panic attacks Chago/Lymph Denies easy bleeding and Denies easy bruising Aller/Immun Denies wheezing Physical exam (Primary Care) Vital Signs: Last Vital Signs Pulse 67 03/19/24 10:08 BP 118/60 03/19/24 10:08 Pulse Ox 97 03/19/24 10:08 Oxygen Delivery Method Room Air 03/19/24 10:08 BMI result Body Mass Index 28.3 Tobacco/Smoking Status: Tobacco use Status Tobacco use date assessed 09/07/23 03/19/24 10:10 Patient Tobacco Use Status Former Tobacco user 03/19/24 10:10 Tobacco use type Cigarette 03/19/24 10:10 e-Cigarette/Vaping Use Former Use 03/19/24 10:10 Thrive Assessment: Date of Thrive Assessment Date Thrive assessed 09/07/23 03/19/24 10:10 Const General: healthy appearing, no acute distress, alert and awake Nutritional Appearance: well nourished Orientation/consciousness: oriented to person, oriented to place and oriented to time HENMT Ears: TM's normal bilaterally General nose exam: Normal nasal mucous membranes and turbinates present Eyes Conjunctivae: conjunctivae normal Sclerae: sclerae normal Pupils: Equal, round and reactive pupils present Neck Neck: Yes no lymphadenopathy and Yes no JVD Thyroid: Thyroid normal Carotids: no bruits Resp Effort & Inspection: normal respiratory effort and not tachypneic Auscultation: no crackles, no rales, no rhonchi and no wheezes Cardio Rate: regular rate Rhythm: regular rhythm Heart sounds: no murmurs and normal S1 and S2 GI Palpation (GI): Soft to palpation, nontender, no hepatomegaly and no splenomegaly Auscultation: normal bowel sounds Skin General skin exam: no rashes or lesions noted and dry skin Neuro General: oriented to person, oriented to place and oriented to time Cranial nerves: Yes Equal, round and reactive pupils present Speech: No Abnormal speech present Gait exam (Neuro): Normal gait present Motor exam (neuro): no tremor noted Extrem Right upper extremity: full ROM Left upper extremity: full ROM Right lower extremity: full ROM; no edema Left lower extremity: full ROM; no edema Psych Mental Status: mental status grossly normal Speech and movement: Normal speech and movement present Affect: normal affect Attitude: cooperative Thought process: Normal thought process present Assessment and Plan Assessment & Plan (1) CAD (coronary artery disease) of artery bypass graft: Comment: Quadruple bypass done in August 2023 Code(s): I25.810 - Atherosclerosis of coronary artery bypass graft(s) without angina pectoris Qualifiers: Associated angina: without angina [place] vs. transplanted heart: [place] heart Qualified Code(s): I25.810 - Atherosclerosis of coronary artery bypass graft(s) without angina pectoris Plan: As per HPI patient recently found to have an NSTEMI, coronary catheterization showing multivessel disease. Needed a quadruple bypass done in August of 2023 Patient doing well, all surgical scars have healed. Still has some muscle spasms in his chest wall. Has been started on high potency statin and dual antiplatelet therapy along with metoprolol. Goal LDL to be optimally below 70, he was recently started on ezetimibe for better LDL control. Continues on cardiac rehab. He does seem to have side effect of fatigue due to his metoprolol and will speak with his frame stylist about reducing dose of beta-kobi. (2) Pulmonary nodule less than 1 cm in diameter with moderate to high risk for malignant neoplasm: Comment: Pulmonary nodule noted 2 mm in August of 2023 Code(s): R91.1 - Solitary pulmonary nodule; Z91.89 - Other specified personal risk factors, not elsewhere classified Plan: Patient previous smoker. Found to have a 2 mm [address] nodule on CT while hospitalized for cardiac issue. Has upcoming appointment with pulmonology. (3) HTN (hypertension): Code(s): I10 - Essential (primary) hypertension Qualifiers: Hypertension type: primary hypertension Qualified Code(s): I10 - Essential (primary) hypertension Plan: Patient's blood pressure acceptable today in office. Now on metoprolol 100 mg daily, again does report some fatigue. Advised to continue monitoring blood pressure with goal blood pressure to remain below 140/90. (4) MARCUS (generalized anxiety disorder): Code(s): F41.1 - Generalized anxiety disorder Plan: Patient reports worsening anxiety since his coronary artery bypass open heart surgery. He has tried SSRI therapy in the past though seem to not be effective. He has use lorazepam on as needed basis which benefit him greatly. He is interested in restarting lorazepam as needed. Also like to try trazodone at night before sleep He is also willing to get established with a mental health therapist for cognitive behavioral therapy Will follow-up with patient in 4-6 weeks to evaluate the effectiveness of the medication. Orders: Referrals Counseling Referral F41.1 - Generalized anxiety disorder, Z13.220 - Encounter for screening for lipoid disorders Medications: New nicotine (polacrilex) 2 mg buccal Q2H PRN 110 ea 0RF nicotine cravings 15 days F17.200 - Nicotine dependence, unspecified, uncomplicated, Z87.891 - Personal history of nicotine dependence lorazepam 0.5 mg PO BID PRN 30 tabs 1RF anxiety 15 days F41.1 - Generalized anxiety disorder trazodone 50 mg PO BEDTIME 30 tabs 1RF 30 days F41.1 - Generalized anxiety disorder ezetimibe 10 mg PO DAILY 90 tabs 1RF 90 days F41.1 - Generalized anxiety disorder Changed From aspirin 81 mg PO DAILY I25.810 - Atherosclerosis of coronary artery bypass graft(s) without angina pectoris To aspirin 81 mg PO DAILY 90 tabs 1RF 90 days I25.810 - Atherosclerosis of coronary artery bypass graft(s) without angina pectoris Refilled cholecalciferol (vitamin D3) 50 mcg PO DAILY 90 tabs 1RF I10 - Essential (primary) hypertension Discontinued lorazepam Discontinued Reason: Doctor's Order 1 mg PO DAILY 10 days PRN 10 tabs 0RF anxiety F32.A - Depression, unspecified, F41.9 - Anxiety disorder, unspecified nicotine (polacrilex) Discontinued Reason: Change Referral Type 2 mg buccal Q8H 30 days PRN 81 ea 1RF nicotine cravings F17.200 - Nicotine dependence, unspecified, uncomplicated Patient Instructions: Goal: Blood pressure to remain below 140/90, LDL to be below 70 Barriers: Adherence to physical activity and healthy eating habits Coding Level of Care Code Est Pt Level 4 (00219) Diagnoses Coronary artery disease involving coronary bypass graft of [place] heart without angina pectoris I25.810 Associated angina: without angina [place] vs. transplanted heart: [place] heart Pulmonary nodule less than 1 cm in diameter with moderate to high risk for malignant neoplasm R91.1; Z91.89 Primary hypertension I10 Hypertension type: primary hypertension MARCUS (generalized anxiety disorder) F41.1
[2024-03-19 10:08] VITALS: BP 118/60; PULSE 67; O2SAT 97; BMI 28.3
== END 2024-03-19 10:45 | disposition home or self-care (01) ==
PROVIDERS: PCP Physician Assistant; Visit Provider Physician Assistant
DX: I25.810 Atherosclerosis of coronary artery bypass graft(s) without angina pectoris (principal); R91.1 Solitary pulmonary nodule; Z91.89 Other specified personal risk factors, not elsewhere classified; I10 Essential (primary) hypertension; F41.1 Generalized anxiety disorder
CPT/HCPCS: 99214

== ENCOUNTER 2024-05-07 09:29 | Outpatient (AMB) | payer OTHER, SELFPAY ==
--- NOTE | 2024-05-07 09:22 | A.OFFPC_ITS ---
Intake Visit Reasons: 6-8 Week F/U [phone] Loan Adviser Required: No Information Interpreted: non-clinical & clinical Figure Refinisher And Repairer: Not Required per policy Accompanied by: Self / Same As Patient Allergies No Known Allergies Allergy (Verified 05/07/24 10:02) Medication List - Last Reconciled 05/07/24 by Colton Hart PA-C aspirin 81 mg PO DAILY 90 days atorvastatin 80 mg PO DAILY cholecalciferol (vitamin D3) 50 mcg PO DAILY clopidogrel 75 mg PO DAILY 90 days cyclobenzaprine 5 mg PO BEDTIME 15 days ezetimibe 10 mg PO DAILY 90 days lorazepam 0.5 mg PO BID PRN 15 days metoprolol tartrate 50 mg PO BID nicotine 1 patch transdermal DAILY nicotine (polacrilex) 2 mg buccal Q2H PRN 15 days trazodone 50 mg PO BEDTIME 30 days Tobacco use date assessed: 09/07/23 Dental Screening Dental Screen Date: 09/07/23 HPI 6-8 Week F/U [phone] HPI Details Patient is a 49-year-old male being evaluated today via telephone. . Patient has a past medical history si gnificant for hypertension, generalized anxiety disorder, history of hypercalcemia, tobacco dependency. -Concern-> at last visit we discussed jennifer steele's anxiety difficulty with sleeping. He was started on trazodone 50 mg though did not feel it was as effective as he would want. He had increased trazodone 250 mg now feeling better, even his mood is much better. He would like to continue with trazodone 150 at night. He does have lorazepam available to him though only using on an as needed basis. Coronary artery disease: Underwent coronary artery bypass in Aug 2023, doing very well. In cardiac rehab this time. On high potency statin, clopidogrel and metoprolol. He has followed up with his broomcorn scraper in [place] in did undergo cardiac stress test which apparently was normal. Since surgery has been having some upper back pain related to sleeping position. HE PROMISES TO GET FASTING LABS BEFORE UPCOMING VISIT TO EVALUATE HIS LIPID PANEL. He also reports having a lower libido and like his testosterone checked [facility] Medical History Leukocytosis Thrombocytosis Full dentures Anxiety Depression Surgical History History of dental surgery Family History Father Lung cancer HTN (hypertension) Hyperlipidemia Colon cancer Mother Breast cancer Hyperlipidemia Thyroid disease IBS (irritable colon syndrome) Maternal Grandmother Paget's bone disease IBS (irritable colon syndrome) Other Mental health disorder Social History Household Members: Family Housing: House Alcohol intake: former Patient Tobacco Use Status: Former Tobacco user Tobacco use type: Cigarette Cigarette Packs Per Day: 1 Cigarettes Per Day: 8 Years Smoked: 20 e-Cigarette/Vaping Use: Former Use Second Hand Smoke Exposure: Yes Substance Use Type: Marijuana service: No 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 Riky Roldan, Saida Grace, José Luis Sun and colleagues, with an educational albin from [employer]. Review of Systems Const Denies headache(s) Eyes Denies loss of vision ENT Denies vertigo, Denies dizziness, Denies headache(s) and Denies sore throat Card Denies chest pain, Denies leg edema and Denies lightheadedness Resp Denies cough, Denies hemoptysis and Denies wheezing GI Denies abdominal pain, Denies melena, Denies constipation, Denies diarrhea and Denies vomiting Denies dysuria, Denies urinary frequency and Denies urinary urgency Musc Denies arthralgias, Denies joint swelling, Denies numbness and Denies tingling Neuro Denies behavioral changes, Denies vertigo, Denies dizziness, Denies headache(s), Denies loss of vision, Denies memory loss, Denies numbness and Denies tingling Psych Denies anxiety, Denies behavioral changes, Denies depression, Denies memory loss and Denies panic attacks Chago/Lymph Denies easy bleeding and Denies easy bruising Aller/Immun Denies wheezing Physical exam (Primary Care) Tobacco/Smoking Status: Tobacco use Status Tobacco use date assessed 09/07/23 05/07/24 09:24 Patient Tobacco Use Status Former Tobacco user 05/07/24 09:24 Tobacco use type Cigarette 05/07/24 09:24 e-Cigarette/Vaping Use Former Use 05/07/24 09:24 Thrive Assessment: Date of Thrive Assessment Date Thrive assessed 09/07/23 05/07/24 09:24 Telehealth Telehealth Telehealth Platform: Telephone Location of provider rendering services: practice address Location of patient: address on file Patient Identification confirmed using: Name, : Yes Telehealth method: voice only Patient verbally consented to treatment: Yes Patient verbally consented to billing insurance company: Yes Patient informed of any privacy concerns related to visit: Yes Minutes spent on Phone/Video with Pt.: 11 Assessment and Plan Assessment & Plan (1) MARCUS (generalized anxiety disorder): Code(s): F41.1 - Generalized anxiety disorder Plan: Patient reports his anxiety and mood have been better since starting trazodone at 150 mg. He has been sleeping well with trazodone 150 mg as well. He does have lorazepam 0.5 mg that he uses on an as needed basis for high points of anxiety. He did get set up with a mental health therapist though did work well and is interested in getting a new therapist. (2) CAD (coronary artery disease) of artery bypass graft: Comment: Quadruple bypass done in August 2023 Code(s): I25.810 - Atherosclerosis of coronary artery bypass graft(s) without angina pectoris Qualifiers: Associated angina: without angina [place] vs. transplanted heart: [place] heart Qualified Code(s): I25.810 - Atherosclerosis of coronary artery bypass graft(s) without angina pectoris Plan: As per HPI patient recently found to have an NSTEMI, coronary catheterization showing multivessel disease. Needed a quadruple bypass done in August of 2023 Patient doing well, all surgical scars have healed. Still has some muscle spasms in his chest wall. Has been started on high potency statin and dual antiplatelet therapy along with metoprolol. Goal LDL to be optimally below 70, he was recently started on ezetimibe for better LDL control. (3) Low libido: Code(s): R68.82 - Decreased libido Plan: Patient would like testosterone checked. Orders: Orders Testosterone, Free/Total Today R68.82 - Decreased libido Medications: New trazodone 150 mg PO BEDTIME 30 tabs 3RF sleep 30 days F41.1 - Generalized anxiety disorder Refilled cyclobenzaprine 5 mg PO BEDTIME 15 tabs 0RF 15 days M54.16 - Radiculopathy, lumbar region ezetimibe 10 mg PO DAILY 90 tabs 1RF 90 days F41.1 - Generalized anxiety disorder Discontinued trazodone Discontinued Reason: Doctor's Order 50 mg PO BEDTIME 30 days 30 tabs 3RF F41.1 - Generalized anxiety disorder Coding Level of Care Code Tele Est Pt Level 4 (20343) Diagnoses MARCUS (generalized anxiety disorder) F41.1 Coronary artery disease involving coronary bypass graft of [place] heart without angina pectoris I25.810 Associated angina: without angina [place] vs. transplanted heart: [place] heart Low libido R68.82
== END 2024-05-07 11:16 | disposition home or self-care (01) ==
LOC: HO.HMGH 09:29
PROVIDERS: PCP Physician Assistant; Visit Provider Physician Assistant
DX: I25.810 Atherosclerosis of coronary artery bypass graft(s) without angina pectoris (principal); F41.1 Generalized anxiety disorder; R68.82 Decreased libido
CPT/HCPCS: 99214

== ENCOUNTER 2024-05-21 06:23 | Outpatient (REF) | payer OTHER, SELFPAY ==
[2024-05-21 07:23] LABS: Hematocrit 40.2 % (42.0-52.0); Hemoglobin 13.7 g/dl (14.0-18.0); Mean Corpuscular HGB Conc 34.1 g/dl (31.0-36.0); Mean Corpuscular Hemoglobin 28.9 pg (27.0-33.0); Mean Corpuscular Volume 84.8 fL (80.0-98.0); Mean Platelet Volume 9.3 fL (9.4-12.4); Platelet Count 368 X10*3/uL (160-400); Red Blood Count 4.74 X10*6/uL (4.60-5.80); Red Cell Distribution Width 14.2 % (11.0-16.0); White Blood Count 8.7 X10*3/uL (4.8-10.8)
[2024-05-21 07:48] LABS: Alanine Aminotransferase 22 U/L (0-40); Albumin Level 4.3 g/dL (3.5-5.0); Alkaline Phosphatase 95 U/L (39-117); Anion Gap 13 (12-20); Aspartate Amino Transferase 14 U/L (5-37); Bilirubin Total 0.9 mg/dL (0.0-1.0); Blood Urea Nitrogen 21 mg/dL (9-16); Carbon Dioxide 24 mmol/L (22-29); Chloride 106 mmol/L (96-108); Cholesterol 113 mg/dL (<200); Estimated Glomerular Filt Rate > 60; Glucose Fasting 106 mg/dL (60-99); HDL Cholesterol 43 mg/dL (>40); LDL Cholesterol Calculated 57 mg/dL (<100); Potassium 3.7 mmol/L (3.3-5.1); Sodium 139 mmol/L (135-145); Triglycerides 69 mg/dL (<150)
[2024-05-21 07:51] LABS: Microalbum/Creatinine Ratio Ur 13.9 ug/mg cr (<30)
[2024-05-26 17:48] LABS: Testosterone, Free 49.3 pg/mL (35.0-155.0); Testosterone, Total 418 ng/dL (250-1100)
== END 2024-05-21 06:24 | disposition home or self-care (01) ==
LOC: HO.LAB 06:23
PROVIDERS: PCP Physician Assistant; Visit Provider Physician Assistant
DX: I25.810 Atherosclerosis of coronary artery bypass graft(s) without angina pectoris (principal); R68.82 Decreased libido
CPT/HCPCS: 36415; 80053; 80061; 82043; 82570; 84402; 84403; 85027

== ENCOUNTER 2024-08-06 14:18 | Outpatient (AMB) | payer OTHER, SELFPAY ==
[2024-08-06 14:27] VITALS: BP 134/84; PULSE 76; O2SAT 97; BMI 30.4
--- NOTE | 2024-08-06 14:27 | A.OFFPC_ITS ---
Vital Signs 3 08/06/24 14:27 Height 6 ft Weight 224 lb 6 oz BMI 30.4 BP 134/84 Blood Pressure Location Lt brachial Position Sitting Pulse 76 Pulse Source Pulse Oximeter Pulse Oximetry (%) 97 Oxygen Delivery Method Room Air Intake Visit Reasons: 3 Month F/U Plate Former Required: No Accompanied by: Self / Same As Patient Allergies No Known Allergies Allergy (Verified 08/06/24 14:44) Medication List - Last Reconciled 08/06/24 by Colton Hart PA-C aspirin 81 mg PO DAILY 90 days atorvastatin 80 mg PO DAILY cholecalciferol (vitamin D3) 50 mcg PO DAILY clopidogrel 75 mg PO DAILY 90 days cyclobenzaprine 5 mg PO BEDTIME 15 days ezetimibe 10 mg PO DAILY 90 days lorazepam 0.5 mg PO BID PRN 15 days metoprolol tartrate 50 mg PO BID nicotine 1 patch transdermal DAILY nicotine (polacrilex) 2 mg buccal Q2H PRN 15 days trazodone 150 mg PO BEDTIME 30 days trazodone 200 mg (2 x 100 mg) PO BEDTIME 90 days Tobacco use date assessed: 09/07/23 Dental Screening Dental Screen Date: 09/07/23 HPI 3 Month F/U 2 HPI0 Details Patient is a 49-year-old male here today for a followup . Patient has a past medical history si gnificant for hypertension, generalized anxiety disorder, history of hypercalcemia, tobacco dependency. Chronic Right foot pain: Now followed by a satellite television installer. Patient did get CT of the right foot showing-->Focal cortical irregularity at the lateralmost aspect of the talar dome measuring up to 1.0 cm with adjacent linear sclerosis. Findings likely represent sequela of a healed, remote fracture. Corticated ossification adjacent to the lateral malleolus consistent with a remote, unfused fracture fragment. Findings are likely related to a remote anterior talofibular ligament injury. Has tried foot inserts injections though have not been effective on reducing his pain. He continues to have mild to moderate swelling and pain particularly when he stands or works for long periods of time. Coronary artery disease: Underwent coronary artery bypass in Aug 2023, doing very well. In cardiac rehab this time. On high potency statin, clopidogrel and metoprolol. He has followed up with his fiberglass laminator in [place] in did undergo cardiac stress test which apparently was normal. Since surgery has been having some upper back pain related to sleeping position. [facility] Medical History Leukocytosis Thrombocytosis Full dentures Anxiety Depression Surgical History History of dental surgery Family History Father Lung cancer HTN (hypertension) Hyperlipidemia Colon cancer Mother Breast cancer Hyperlipidemia Thyroid disease IBS (irritable colon syndrome) Maternal Grandmother Paget's bone disease IBS (irritable colon syndrome) Other Mental health disorder Social History Household Members: Family Housing: House Alcohol intake: former Patient Tobacco Use Status: Former Tobacco user Tobacco use type: Cigarette Cigarette Packs Per Day: 1 Cigarettes Per Day: 8 Years Smoked: 20 e-Cigarette/Vaping Use: Former Use Second Hand Smoke Exposure: Yes Substance Use Type: Marijuana service: No 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 Riky Roldan, Saida Grace, José Luis Sun and colleagues, with an educational albin from [employer]. Review of Systems Const Denies headache(s) Eyes Denies loss of vision ENT Denies vertigo, Denies dizziness, Denies headache(s) and Denies sore throat Card Denies chest pain, Denies leg edema and Denies lightheadedness Resp Denies cough, Denies hemoptysis and Denies wheezing GI Denies abdominal pain, Denies melena, Denies constipation, Denies diarrhea and Denies vomiting Denies dysuria, Denies urinary frequency and Denies urinary urgency Musc Denies arthralgias, Denies joint swelling, Denies numbness and Denies tingling Neuro Denies Abnormal speech present, Denies behavioral changes, Denies vertigo, Denies dizziness, Denies headache(s), Denies loss of vision, Denies memory loss, Denies numbness and Denies tingling Psych Denies anxiety, Denies behavioral changes, Denies depression, Denies memory loss and Denies panic attacks Chago/Lymph Denies easy bleeding and Denies easy bruising Aller/Immun Denies wheezing Physical exam (Primary Care) Vital Signs: Last Vital Signs Pulse 76 08/06/24 14:27 BP 134/84 08/06/24 14:27 Pulse Ox 97 08/06/24 14:27 Oxygen Delivery Method Room Air 08/06/24 14:27 BMI result Body Mass Index 30.4 Tobacco/Smoking Status: Tobacco use Status Tobacco use date assessed 09/07/23 08/06/24 14:28 Patient Tobacco Use Status Former Tobacco user 08/06/24 14:28 Tobacco use type Cigarette 08/06/24 14:28 e-Cigarette/Vaping Use Former Use 08/06/24 14:28 Thrive Assessment: Date of Thrive Assessment Date Thrive assessed 09/07/23 08/06/24 14:28 Const General: healthy appearing, no acute distress, alert and awake Nutritional Appearance: well nourished Orientation/consciousness: oriented to person, oriented to place and oriented to time HENMT Ears: TM's normal bilaterally General nose exam: Normal nasal mucous membranes and turbinates present Eyes Conjunctivae: conjunctivae normal Sclerae: sclerae normal Pupils: Equal, round and reactive pupils present Neck Neck: Yes no lymphadenopathy and Yes no JVD Thyroid: Thyroid normal Carotids: no bruits Resp Effort & Inspection: normal respiratory effort and not tachypneic Auscultation: no crackles, no rales, no rhonchi and no wheezes Cardio Rate: regular rate Rhythm: regular rhythm Heart sounds: no murmurs and normal S1 and S2 GI Palpation (GI): Soft to palpation, nontender, no hepatomegaly and no splenomegaly Auscultation: normal bowel sounds Skin General skin exam: no rashes or lesions noted and dry skin Neuro General: oriented to person, oriented to place and oriented to time Cranial nerves: Yes Equal, round and reactive pupils present Speech: No Abnormal speech present Gait exam (Neuro): Normal gait present Motor exam (neuro): no tremor noted Extrem Right upper extremity: full ROM Left upper extremity: full ROM Right lower extremity: full ROM; no edema Left lower extremity: full ROM; no edema Ankle/foot/toe images: 2 1. PAIN LOCATED IN THE AREA OUTLINED. Psych Mental Status: mental status grossly normal Speech and movement: Normal speech and movement present Affect: normal affect Attitude: cooperative Thought process: Normal thought process present Coding Level of Care Code Est Pt Level 4 (31031) Diagnoses Coronary artery disease involving coronary bypass graft of [place] heart without angina pectoris I25.810 Associated angina: without angina [place] vs. transplanted heart: [place] heart Right foot pain M79.671 Disorder of ligament, right ankle M24.271 Primary insomnia F51.01 Insomnia type: primary Assessment & Plan Assessment & Plan (1) CAD (coronary artery disease) of artery bypass graft: Comment: Quadruple bypass done in August 2023 Code(s): I25.810 - Atherosclerosis of coronary artery bypass graft(s) without angina pectoris Category: Medical Qualifiers: Associated angina: without angina [place] vs. transplanted heart: [place] heart Qualified Code(s): I25.810 - Atherosclerosis of coronary artery bypass graft(s) without angina pectoris Plan: Patient continues to follow cardiology. Most recent lipid panel showing excellent control of his total cholesterol and LDL. He will continue on dual antiplatelet therapy and high-dose statin therapy with goal LDL to remain below 70. (2) Right foot pain: Code(s): M79.671 - Pain in right foot Category: Medical Plan: As per HPI (3) Disorder of ligament, right ankle: Code(s): M24.271 - Disorder of ligament, right ankle Category: Medical Plan: Do suspected ligamental issue in his right foot and ankle due to his chronicity of his pain continued swelling particularly with long periods of standing and working. Has seen Podiatry and has tried foot inserts in injections though have not been effective. Will try for MRI of the ankle to evaluate the soft tissue structures. (4) Insomnia: Code(s): G47.00 - Insomnia, unspecified Category: Medical Qualifiers: Insomnia type: primary Qualified Code(s): F51.01 - Primary insomnia Plan: Patient has noted that trazodone 200 mg at bedtime has been effective for sleep. Will increase his dose of trazodone. Orders: Orders 2 Lipid Panel 08/06/24 I25.810 - Atherosclerosis of coronary artery bypass graft(s) without angina pectoris Comprehensive [place]. Panel Fast 08/06/24 I25.810 - Atherosclerosis of coronary artery bypass graft(s) without angina pectoris MR ankle RT wo con 08/06/24 M24.271 - Disorder of ligament, right ankle Complete Blood Count no Diff 08/06/24 I25.810 - Atherosclerosis of coronary artery bypass graft(s) without angina pectoris Microalbumin, Random (w Creat) 08/06/24 I10 - Essential (primary) hypertension Referrals 2 Orthopedics Referral M24.271 - Disorder of ligament, right ankle Medications: New 2 trazodone 200 mg (2 x 100 mg) PO BEDTIME 180 tabs 1RF 90 days F32.A - Depression, unspecified, F41.9 - Anxiety disorder, unspecified
== END 2024-08-06 14:51 | disposition home or self-care (01) ==
PROVIDERS: PCP Physician Assistant; Visit Provider Physician Assistant
DX: I25.810 Atherosclerosis of coronary artery bypass graft(s) without angina pectoris (principal); M79.671 Pain in right foot; M24.271 Disorder of ligament, right ankle; F51.01 Primary insomnia

== ENCOUNTER → 2024-08-06 14:18 | Outpatient (BNVA) | payer OTHER, SELFPAY | PROVIDERS: PCP Physician Assistant; Visit Provider Physician Assistant | DX: I25.810 Atherosclerosis of coronary artery bypass graft(s) without angina pectoris (principal); M79.671 Pain in right foot; M24.271 Disorder of ligament, right ankle; F51.01 Primary insomnia | CPT/HCPCS: 99212 ==

== ENCOUNTER 2024-08-13 19:44 | Outpatient (REF) | payer OTHER, SELFPAY | END 2024-08-13 19:45 | disposition home or self-care (01) | LOC: HO.MRI 19:44 | PROVIDERS: PCP Physician Assistant; Visit Provider Physician Assistant | DX: M24.271 Disorder of ligament, right ankle (principal) | CPT/HCPCS: 73721 ==

== ENCOUNTER 2024-09-04 14:06 | Outpatient (REF) | payer OTHER, SELFPAY ==
--- NOTE | 2024-09-04 14:16 | PFT_ITS ---
Flows: FEV1: 88 % of predicted at 3.98 L FVC: 99 % of predicted at 5.71 L FEV1/FVC: 70 % Bronchodilator response: Present in small to medium airways only Volumes: Total lung capacity: 102 % of predicted at 8.38 L Residual volume: 136 % of predicted at 2.78 L Slow vital capacity: 91 % of predicted at 5.60 L Expiratory reserve volume: 183 % of predicted at 3.31 L Diffusion capacity: Normal Impression: Mild obstructive ventilatory defect with bronchodilator response present in small to medium airways only. Increased residual volume suggests air trapping. MTDD
== END 2024-09-04 14:07 | disposition home or self-care (01) ==
LOC: HO.RESP 14:06
PROVIDERS: PCP Physician Assistant; Visit Provider Internal Medicine Pulmonary Disease
DX: J43.9 Emphysema, unspecified (principal)
CPT/HCPCS: 94010; 94640; 94727; 94729

== ENCOUNTER → 2024-09-04 14:16 | Outpatient (BNV) | payer OTHER, SELFPAY | PROVIDERS: PCP Physician Assistant; Visit Provider Internal Medicine Pulmonary Disease | DX: J43.9 Emphysema, unspecified (principal) | CPT/HCPCS: 94060; 94727; 94729 ==

== ENCOUNTER 2024-11-20 07:48 | Outpatient (REF) | payer OTHER, SELFPAY ==
--- NOTE | ~2024-11-20 | CT_ITS ---
CLINICAL HISTORY: R91.1 - Solitary pulmonary nodule Exam: CT chest without intravenous contrast. Comparison: None. Findings: Moderate centrilobular emphysematous changes throughout the lungs. 2 mm noncalcified pulmonary nodule within the right upper lobe on axial image number 44 of series 4. Mild areas of juxtapleural scarring along the anterior aspect of the left upper lobe. No focal areas of consolidation. No pleural effusion or pneumothorax. Patient has undergone prior sternotomy. There is dense calcification of the patient's ely sh[place] coronary arteries. Overall heart size within normal limits. No enlarged lymph nodes. No free fluid or free air. Low-density lesion within the left adrenal gland measures 2.7 cm in round diameter indicative of an adrenal adenoma. Hounsfield units are between -15 and 0. No acute fracture. Impression: Tiny pulmonary nodule in the right upper lobe. Left adrenal adenoma. Moderate emphysema. This document has been electronically signed by: Rafi Hernandez MD on 11/21/2024 09:04:15
--- OUTSIDE RECORDS SUMMARY | 2024-11-20 07:51 | XMS_ITS | Clinical Summary ---
Author Organization [facility] Address [address] [facility] [[email or web address]] [address] [place] [address] Phone Care Team Providers Care Radio Recorder Name Role Phone Colton Hart Primary Care Provider Allergies No known active allergies Medications atorvastatin (LIPITOR) 80 MG tablet Take 80 mg by mouth 1 (one) time each day 10/23/2023 Active Aspirin Low Dose 81 MG EC tablet Take 81 mg by mouth 1 (one) time each day 10/02/2023 Active metoprolol tartrate (LOPRESSOR) 50 MG tablet Take 50 mg by mouth in the morning and 50 mg in the evening. Active clopidogrel (PLAVIX) 75 MG tablet Take 75 mg by mouth 1 (one) time each day 10/02/2023 Active cholecalciferol (VITAMIN D-3 SUPER STRENGTH) 50 MCG (1999 UT) tablet Take 2,000 Units by mouth 1 (one) time each day 09/11/2023 Active Active Problems Problem Noted Date Diagnosed Date Hypertension 11/15/2023 Tobacco user 11/15/2023 Non-ST elevation (NSTEMI) myocardial infarction 11/15/2023 Calcific coronary arteriosclerosis 09/24/2023 Family History Medical History Relation Comments Heart attack Father Relation Status Comments Father Social History Tobacco Use Types Packs/Day Years Used Date Smoking Tobacco: Former Cigarettes Tobacco Cessation:Counseling Given: Not Answered Sex and Gender Information Value Date Recorded Sex Assigned at Not on file Legal Sex Male 8:00 AM EST Gender Identity Not on file Sexual Orientation Not on file Last Filed Vital Signs Vital Sign Reading Time Taken Comments Blood Pressure 120/68 11/15/2023 2:51 PM EDT Pulse 71 11/15/2023 2:51 PM EDT Temperature - - Respiratory Rate - - Oxygen Saturation 97% 11/15/2023 2:51 PM EDT Inhaled Oxygen Concentration - - Weight 97.5 kg (215 lb) 11/15/2023 2:51 PM EDT Height - - Body Mass Index - - Plan of Treatment Health Maintenance Due Date Last Done Comments Pneumococcal Vaccine: Pediat rics (0 to 5 Years) and At-Risk Patients (6 to 64 Years) (1 of 2 - PCV) 1983 Hepatitis B Vaccine (1 of 3 - 19+ 3-dose series) 02/22 Influenza Vaccine (#1) 2024 Insurance MEDICAID MEDICAID Care Teams Radio Recorder Relationship Specialty Start Date End Date Colton Hart PA [address] [place] [address], [address] [place] [address] PCP - General Physician Consultant Nurse 11/15/23
--- OUTSIDE RECORDS SUMMARY | 2024-11-20 07:51 | XMS_ITS | Encounter Summary ---
Author Organization [facility] Address [address] [place] [address] Care Team Providers Care Property Master Name Role Phone Unavailable Primary Care Provider Unavailabl e Reason for Visit * Reason Onset Date Comments Med Change Request 11/06/2024 Encounter Details Date Type Department Care Team ([facility] st Contact Info) Description 11/06/2024 Telephone [facility] [address] [place] [phone] Kyree Machado MD [address] [place] [address] [address] [place] [address] Med Change Request Social History Tobacco Use Types Packs/Day Years Used Date Smoking Tobacco: Former Cigarettes Q uit: 08/28/2023 Smokeless Tobacco: Never Alcohol Use Standard Drinks/Week Comments Yes 0 (1 standard drink = 0.6 oz pur e alcohol) Sex and Gender Information Value Date Recorded Sex Assigned at Not on file Legal Sex Male 10:18 AM EST Gender Identity Not on file Sexual Orientation Not on file documented as of this encounter Progress Notes * Quyen Mercedes MA - 11/06/2024 4:57 PM EDT I spoke to pt in great detail, low energy levels since surgery, pt also complains of muscle aches and is on statin, appt given for 11/15/24 with LA at 7:40 * Quyen Mercedes MA - 11/06/2024 4:33 PM EDT Lvm for pt to cb * Alex Jane - 11/06/2024 3:38 PM EDT Cornel would like to switch from Metoprolol 50 mg twice a day to Metoprolol succinate 25 mg once aday. He is feeling like days are dragging and feels tired most of his days. If we can call him to discuss this he would appreciate it. documented in this encounter Plan of Treatment Upcoming Encounters Date Type Department Care Team (Late st Contact Info) Description 12/03/2024 7:00 AM EDT Ancillary Procedure [facility] Cardiology [facility] [address] [place] [address] 12/30/2024 3:10 PM EDT Office Visit [facility] Cardiology [facility] [address] [place] [address] [place] [phone] Lizy Travis NP [address] [place] [address] [place] [address] documented as of this encounter Visit Diagnoses Not on filedocumented in this encounter
--- OUTSIDE RECORDS SUMMARY | 2024-11-20 07:51 | XMS_ITS | Clinical Summary ---
Author Organization [facility] Address [address] [place] [address] Phone Care Team Providers Care Hvac R Instructor Name Role Phone Unavailable Primary Care Provider Unavailabl e Allergies No known active allergies Medications ezetimibe (ZETIA) 10 mg tablet Take 1 tablet (10 mg total) by mouth 1 (one) time each day. Active aspirin 81 mg EC tablet Take 1 tablet (81 mg total) by mouth 1 (one) time each day. Active cholecalciferol (VITAMIN D-3) 50 mcg (2,000 unit) tablet Take 1 tablet (2,000 Units total) by mouth 1 (one) time each day. Active traZODone (DESYREL) 100 mg tablet Take 2 tablets (200 mg total) by mouth at bedtime. Active LORazepam (ATIVAN) 0.5 mg tablet Take 1-2 tablets (0.5-1 mg total) by mouth if needed for anxiety. Active ascorbic acid (VITAMIN C) 1,000 mg tablet Take 1 tablet (1,000 mg total) by mouth 1 (one) time each day. Active coenzyme Q-10 (Co Q-10) 100 mg capsule Take 1 capsule (100 mg total) by mouth 1 (one) time each day. Active omega 0-mas-xat-fish oil (Fish OiL) 1,200 (144-216) mg capsule Take 1 capsule by mouth 1 (one) time each day. Active Lactobacillus acidophilus (PROBIOTIC ORAL) Take 1 tablet by mouth 1 (one) time each day. Active metoprolol succinate (TOPROL-XL) 50 mg 24 hr tabletIndications :Coronary artery disease, unspecified vessel or lesion type, unspecified whether angina present, unspecified whether unga or transplanted heart Take 1 tablet (50 mg total) by mouth 1 (one) time each day. Do not crush or chew. 90 each 2 5 Active rosuvastatin (CRESTOR) 20 mg tabletIndications :Coronary artery disease, unspecified vessel or lesion type, unspecified whether angina present, unspecified whether unga or transplanted heart Take 1 tablet (20 mg total) by mouth 1 (one) time each day. 90 each 2 5 Active metoprolol tartrate (LOPRESSOR) 50 mg tablet Take 1 tablet (50 mg total) by mouth 2 (two) times a day. 11/16/19 25 Discontinu ed(Formula ry change) clopidogreL (PLAVIX) 75 mg tablet Take 1 tablet (75 mg total) by mouth 1 (one) time each day. 11/16/19 Discontinu ed(Therapy completed) atorvastatin (LIPITOR) 80 mg tablet Take 1 tablet (80 mg total) by mouth 1 (one) time each day. 11/16/19 Discontinu ed(Side effects) Active Problems Problem Noted Date Diagnosed Date NSTEMI (non-ST elevated myocardial infarction) 0 11/12/2024 Hypertension 11/12/2024 Assessment & Plan (11/15/2024 8:59 AM EDT): Blood pressure under excellent control, 114/72. Will continue on metoprolol, formulary change to succinate as outlined above. Hyperlipidemia 11/12/2024 Assessment & Plan (11/15/2024 8:59 AM EDT): Patient to discontinue atorvastatin, trial rosuvastatin 20 mg daily to see if it helps alleviate his symptoms of joint pain. Will also continue on Zetia and omega-3 fish oil. He will continue following a low-cholesterol diet and remaining active. CAD (coronary artery disease) 11/12/2024 Assessment & Plan (11/15/2024 8:59 AM EDT): With history of coronary artery disease status post CABG in August 2023. He denies exertional anginal symptoms. He is quite active with his job, workouts and playing hockey. Today he is reporting fatigue as well as joint pain. Will trial discontinuing metoprolol to tartrate and initiating metoprolol succinate 50 mg daily. Will also trial discontinuing atorvastatin 80 mg daily and initiating rosuvastatin 20 mg daily. Will recheck labs at his next visit. At this time, he may discontinue Plavix as he has completed over 12 months of DAPT. He will continue on aspirin indefinitely. Patient advised to seek emergency medical attention by calling 911 if they were to develop severe dyspnea, chest pain that did not resolve with rest or nitroglycerin, or if they were to faint. Orders: ECG 12 lead Vascular US duplex carotid bilateral; Future metoprolol succinate (TOPROL-XL) 50 mg 24 hr tablet; Take 1 tablet (50 mg total) by mouth 1 (one) time each day. Do not crush or chew. rosuvastatin (CRESTOR) 20 mg tablet; Take 1 tablet (20 mg total) by mouth 1 (one) time each day. Sternal pain 11/12/2024 Encounters Date Type Department Care Team Description 11/15/2024 7:40 AM EDT Office Visit [facility] Cardiology [facility] [place] [address] [place] [address] Lizy Travis NP Coronary artery disease, unspecified vessel or lesion type, unspecified whether angina present, unspecified whether unga or transplanted heart (Primary Dx); Memory impairment; Hypertension, unspecified type; Hyperlipidemia, unspecified hyperlipidemia type 11/06/2024 Telephone [facility] Card[facility] [address] [place] [address] Nimesh Alva MD Med Change Request from Last 3 Months Surgical History Surgery Date Site/Laterality Comments CARDIAC CATHETERIZATION Done at [facility] [place] 09/12/23 w/DIEGO/ Indications: NSTEMI Medical History Medical History Date Comments Coronary artery disease Hypertension Family history of premature CAD Former smoker Social History Tobacco Use Types Packs/Day Years Used Date Smoking Tobacco: Former Cigarettes Q uit: 08/28/2023 Smokeless Tobacco: Never Alcohol Use Standard Drinks/Week Comments Yes 0 (1 standard drink = 0.6 oz pur e alcohol) rarely Sex and Gender Information Value Date Recorded Sex Assigned at Not on file Legal Sex Male 10:18 AM EST Gender Identity Not on file Sexual Orientation Not on file Obstetrics History Last Filed Vital Signs Vital Sign Reading Time Taken Comments Blood Pressure 114/72 11/15/2024 7:37 AM EDT Pulse 61 11/15/2024 7:37 AM EDT Temperature - - Respiratory Rate - - Oxygen Saturation 98% 11/15/2024 7:37 AM EDT Inhaled Oxygen Concentration - - Weight 99.3 kg (219 lb) 11/15/2024 7:37 AM EDT Height 182.9 cm (6') 11/15/2024 7:37 AM EDT Body Mass Index 29.7 11/15/2024 7:37 AM EDT Plan of Treatment Upcoming Encounters Date Type Department Care Team (Late st Contact Info) Description 12/03/2024 7:00 AM EDT Ancillary Procedure [facility] Cardiology [facility] [address] [place] [address] 12/30/2024 3:10 PM EDT Office Visit [facility] Cardiology [facility] [address] [place] [phone] Lizy Travis NP [address] [place] [address] [place] [address] Health Maintenance Due Date Last Done Comments DTaP,Tdap,and Td Vaccines (1 - Tdap) 02/23/1996 Hepatitis B Vaccines (1 of 3 - 19+ 3-dose series) 02/23/1996 Cholesterol Screening (Lipid Panel) 07/26/2022 Colorectal Cancer Screening: Colonoscopy 07/26/2022 Depression Screening 07/26/2022 HIV Screening 07/26/2022 Hepatitis C Screening 07/26/2022 Social Influencers of Health Screening 07/26/2022 Hypertension/CHF/CAD Annual BMP Blood Test 03/22/2024 COVID-19 Vaccine ( - 2023-2 5 season) 2024 Influenza Vaccine (#1) 2024 HIB Vaccines Aged Out No longer eligi ble based on patient's age to complete this topic HPV Vaccines Aged Out No longer eligi ble based on patient's age to complete this topic Hepatitis A Vaccines Aged Out No long er eligible based on patient's age to complete this topic IPV Vaccines Aged Out No longer eligi ble based on patient's age to complete this topic MMR Vaccines Aged Out No longer eligi ble based on patient's age to complete this topic Meningococcal ACWY Vaccine Aged Out N o longer eligible based on patient's age to complete this topic Meningococcal B Vacine Aged Out No lo nger eligible based on patient's age to complete this topic Pneumococcal Vaccine: Pediat rics (0 to 5 Years) and At-Risk Patients (6 to 64 Years) Aged Out No longer eligible b ased on patient's age to complete this topic RSV Immunization Patients Un ursula 20 months Aged Out No longer eligible b ased on patient's age to complete this topic Varicella Vaccines Aged Out No longer eligible based on patient's age to complete this topic Procedures Procedure Name Priority Date/Time Associated Diagnosis Comments ECG 12-LEAD Routine 11/15/2024 9:00 AM EDT Coronary artery disease, unspecified vessel or lesion type, unspecified whether angina present, unspecified whether unga or transplanted heart from Last 3 Months Results * ECG 12 lead (11/15/2024 9:00 AM EDT) Ventricular Rate ECG 64 BPM GEMUSE Atrial Rate 64 BPM GEMUSE P-R Interval 182 ms GEMUSE QRS Duration 104 ms GEMUSE Q-T Interval 404 ms GEMUSE QTc 416 ms GEMUSE P Wave [place] 80 degrees GEMUSE R [place] 89 degrees GEMUSE T [place] 45 degrees GEMUSE ECG Interpretation Normal sinus rhythm Normal ECG When compared with ECG of 09-SEP-2023 13:02, No significant change was found Confirmed by NIMESH ALVA ([id number]) on 11/17/2024 8:52:45 PM GEMUSE 11/15/2024 7:51 AM EDT 11/17/2024 8:52 PM EDT Fadumo Lu NP ECG ORDERABLES Edited Resu lt - Final GEMUSE from Last 3 Months Insurance [facility] [place] [id number]
--- OUTSIDE RECORDS SUMMARY | 2024-11-20 07:51 | XMS_ITS | Encounter Summary ---
Author Organization [facility] Address [address] [place] [address] Care Team Providers Care Mud Logger Name Role Phone Unavailable Primary Care Provider Unavailabl e Reason for Referral * Imaging (Routine) - Authorized Specialty Diagnoses / Procedures Referred By Jon romero Referred To Contact Diagnoses Coronary artery disease, unspecified vessel or lesion type, unspecified whether angina present, unspecified whether north fork or transplanted heart Memory impairment Procedures Vascular US duplex carotid bilateral Lizy Travis NP [address] [place] [address] [place] [address] Phone: tel: fax: [facility] Referral ID Status Reason Start Date Expiration Date V isits Requested Visits Authorized [id number] Authorized 11/15/2024 11/15/2025 1 1 Reason for Visit * Reason Comments Follow-up Encounter Details Date Type Department Care Team (Latest Contact Info) Description 11/15/2024 7:40 AM EDT Office Visit [facility] Cardiology [facility] [place] [address] Lizy Travis NP [address] [place] [address] [place] [address] Coronary artery disease, unspecified vessel or lesion type, unspecified whether angina present, unspecified whether north fork or transplanted heart (Primary Dx); Memory impairment; Hypertension, unspecified type; Hyperlipidemia, unspecified hyperlipidemia type Social History Tobacco Use Types Packs/Day Years [...] on file documented as of this encounter Last Filed Vital Signs Vital Sign Reading [...] Mass Index 29.7 11/15/2024 7:37 AM EDT documented in this encounter Ordered Prescriptions Prescription Sig Dispense Quantity Refills Last Filled Start Date End Date rosuvastatin (CRESTOR) 20 mg tabletIndications:C oronary artery disease, unspecified vessel or lesion type, unspecified whether angina present, unspecified whether north fork or transplanted heart Take 1 tablet (20 mg total) by mouth 1 (one) time each day. 90 each 2 11/15/2024 metoprolol succinate (TOPROL-XL) 50 mg 24 hr tabletIndications:C oronary artery disease, unspecified vessel or lesion type, unspecified whether angina present, unspecified whether north fork or transplanted heart Take 1 tablet (50 mg total) by mouth 1 (one) time each day. Do not crush or chew. 90 each 2 11/15/2024 documented in this encounter Progress Notes * Lizy Travis, HEAD LIBRARIAN - 11/15/2024 7:40 AM EDTAssociated Problem(s): CAD (coronary artery disease) With history of coronary artery disease status [...] by mouth 1 (one) time each day. * Lizy Travis NP - 11/15/2024 7:40 AM EDTAssociated Problem(s): Hypertension Blood pressure under excellent control, 114/72. Will continue on metoprolol, formulary change to succinate as outlined above. * Lizy Travis NP - 11/15/2024 7:40 AM EDTAssociated Problem(s): Hyperlipidemia Patient to discontinue atorvastatin, trial rosuvastatin 20 mg daily to see if it helps alleviate his symptoms of joint pain. Will also continue on Zetia and omega-3 fish oil. He will continue following a low-cholesterol diet and remaining active. * Lizy Travis NP - 11/15/2024 7:40 AM EDT Images from the original note were not included. [facility] PRIMARY OTR TANKER TRUCK DRIVER: Nimesh Alva MD PCP: No primary care provider on file. HPI: Cornel Rodarte is a 49 y.o. old male with history of coronary artery disease status post CABG x 4 in August 2023 (CROCKETT to LAD, radial to diagonal, SVG to OM 2 and RPDA as a sequential graft; done by Dr. Conner at [facility] on 09/20/2023), arterial hypertension, hyperlipidemia, formersmoker, and family history of premature CAD who underwent a follow-up evaluation today. On today's visit, the patient denies any chest pain with exertion, shortness of breath with exertion, palpitations, dizziness, or syncope. The patient is exercising again in the gym he also has a physical work ([employer]). He denies any Symptoms of chest discomfort or shortness of breath during hisexercise activities in the gym and during his work-related activities. The patient does state that sometimes he feels very mild tenderness when he presses on his sternotomy scar. Ancillary testin. Left heart catheterization (August 2023): Mild luminal irregularities in the left main. 80% stenosis in the mid LAD. 70% stenosis in the first diagonal. 50% stenosis in the mid circumflex. 80% stenosis in the OM 2. 90% stenosis in the mid RCA. 2. Echocardiogram (August 2023): Normal left ventricular systolic function with a left ventricularejection fraction of 55 to 50%. Normal LV regional wall motion. Normal LV diastolic function. No aortic stenosis. No aortic insufficiency. Normal RV size and function. No significant pericardial effusion. 3. CHER (August 2023): LVEF 60 to 65%. Trileaflet aortic valve. No aortic stenosis or insufficiency. Trace MR. Normal RV size and function. 4. Stress echo (02-27-24): Normal exercise stress echocardiogram. The patient exercised for 10 minutes and 20 seconds. No chest pain during the exercise protocol. Good functional capacity for age and gender. No significant ischemic changes that would meet diagnostic criteria for ischemia, in the setting of a submaximal heart rate due to beta-kobi use. Normal LVEF at rest. Normal LV regional wallmotion at rest. No echocardiographic evidence of ischemia or infarct. 5. Echocardiogram (05-29-24): Normal left ventricular systolic function with a left ventricular ejection fraction of 55 to 60%. Normal LV diastolic function. Normal RV size and function. No significant valvular disease. I have obtained verbal consent from Cornel Servinkavita prior to the recording. I have advised Cornel Servinshelton that he may refuse the recording and require the recording to be turned off at any time during this encounter. History of Present Illness The patient presents for cardiac follow-up. He reports persistent fatigue, which he attributes to his physically demanding occupation as a [employer]. Despite maintaining an active lifestyle, including regular gym workouts, he experiences prolonged muscle soreness and joint pain, particularly in his shoulders, which has recently worsened to the point where he is unable to sleep on his side. He describes occasional episodes of dizziness and a sensation of fogginess in his head, accompanied by difficulty recalling simple words. He expresses concern about the potential impact of his medications on his cognitive function. He has previously undergone cardiac rehabilitation which was well-tolerated. He reports no chest pain or shortness of breath during physical activity but notes occasional tenderness in his chest and a burning sensation in his chest blade on palpation. He denies syncope or presyncope. He denies palpitations. He denies peripheral edema, orthopnea or PND. ACTIVE MEDICATIONS: Outpatient Medications Marked as Taking for the 11/15/24 encounter (Office Visit) with Lizy Travis NP Medication Sig Dispense Refill ascorbic acid (VITAMIN C) 1,000 mg tablet Take 1 tablet (1,000 mg total) by mouth 1 (one) time eachday. aspirin 81 mg EC tablet Take 1 tablet (81 mg total) by mouth 1 (one) time each day. cholecalciferol (VITAMIN D-3) 50 mcg (2,000 unit) tablet Take 1 tablet (2,000 Units total) by mouth1 (one) time each day. coenzyme Q-10 (Co Q-10) 100 mg capsule Take 1 capsule (100 mg total) by mouth 1 (one) time each day. ezetimibe (ZETIA) 10 mg tablet Take 1 tablet (10 mg total) by mouth 1 (one) time each day. Lactobacillus acidophilus (PROBIOTIC ORAL) Take 1 tablet by mouth 1 (one) time each day. LORazepam (ATIVAN) 0.5 mg tablet Take 1-2 tablets (0.5-1 mg total) by mouth if needed for anxiety. omega 0-kwi-gli-fish oil (Fish OiL) 1,200 (144-216) mg capsule Take 1 capsule by mouth 1 (one) timeeach day. traZODone (DESYREL) 100 mg tablet Take 2 tablets (200 mg total) by mouth at bedtime. [DISCONTINUED] atorvastatin (LIPITOR) 80 mg tablet Take 1 tablet (80 mg total) by mouth 1 (one) time each day. [DISCONTINUED] clopidogreL (PLAVIX) 75 mg tablet Take 1 tablet (75 mg total) by mouth 1 (one) time each day. [DISCONTINUED] metoprolol tartrate (LOPRESSOR) 50 mg tablet Take 1 tablet (50 mg total) by mouth 2 (two) times a day. PAST MEDICAL HISTORY: Patient Active Problem List Diagnosis NSTEMI (non-ST elevated myocardial infarction) ([facility]) Hypertension Hyperlipidemia CAD (coronary artery disease) Sternal pain ALLERGIES: No Known Allergies SOCIAL HISTORY: Social History Tobacco Use Smoking status: Former Current packs/day: 0.00 Types: Cigarettes Quit date: 08/28/2023 Years since quittin.2 Smokeless tobacco: Never Substance Use Topics Alcohol use: Yes Comment: rarely PHYSICAL EXAM: Vitals: 11/15/24 0737 BP: 114/72 BP Location: Left arm Patient Position: Sitting BP Cuff Size: Adult Pulse: 61 SpO2: 98% Weight: 99.3 kg (219 lb) Height: 1.829 m (72 ) Physical Exam Constitutional: General: He is awake. He is not in acute distress. Appearance: He is well-developed. He is not diaphoretic. HENT: Head: Normocephalic. Eyes: Pupils: Pupils are equal, round, and reactive to light. Neck: Vascular: No carotid bruit, hepatojugular reflux or JVD. Cardiovascular: Rate and Rhythm: Normal rate and regular rhythm. Pulses: Normal pulses and intact distal pulses. Heart sounds: Normal heart sounds, S1 normal and S2 normal. No murmur heard. Pulmonary: Effort: Pulmonary effort is normal. No respiratory distress. Breath sounds: Normal breath sounds. No wheezing, rhonchi or rales. Chest: Chest wall: No tenderness. Abdominal: General: Bowel sounds are normal. There is no distension. Palpations: Abdomen is soft. Tenderness: There is no abdominal tenderness. Musculoskeletal: General: No deformity. Cervical back: Normal range of motion. No edema. Right lower leg: No edema. Left lower leg: No edema. Skin: General: Skin is warm and dry. Neurological: Mental Status: He is alert and oriented to person, place, and time. Psychiatric: Attention and Perception: Attention normal. Mood and Affect: Mood normal. Speech: Speech normal. EKG: Encounter Date: 11/15/24 ECG 12 lead Result Value Ventricular Rate ECG 64 Atrial Rate 64 P-R Interval 182 QRS Duration 104 Q-T Interval 404 QTc 416 P Wave [place] 80 R [place] 89 T [place] 45 ECG Interpretation Normal sinus rhythm Normal ECG When compared with ECG of 09-SEP-2023 13:02, No significant change was found *Note: Due to a large number of results and/or encounters for the requested time period, some results have not been displayed. A complete set of results can be found in Results Review. TESTING: ASSESSMENT/PLAN: Assessment & Plan Coronary artery disease, unspecified vessel or lesion type, unspecified whether angina present, unspecified whether north fork or transplanted heart With history of coronary artery disease status [...] by mouth 1 (one) time each day. Memory impairment Patient reporting intermittent dizziness as well as difficulty recalling names of items. Will have him complete carotid ultrasound to assess for any significant stenosis leading to the symptoms. Orders: Vascular US duplex carotid bilateral; Future Hypertension, unspecified type Blood pressure under excellent control, 114/72. Will continue on metoprolol, formulary change to succinate as outlined above. Hyperlipidemia, unspecified hyperlipidemia type Patient to discontinue atorvastatin, trial rosuvastatin 20 mg daily to see if it helps alleviate his symptoms of joint pain. Will also continue on Zetia and omega-3 fish oil. He will continue following a low-cholesterol diet and remaining active. Thank you for allowing us to participate in the care of this patient. The patient will follow up in6-8 weeks, sooner PRN. As per AHA guidelines and previously established plan of care by Dr. Nimesh Alva MD, we discussed the following today: 1. Coronary artery disease, unspecified vessel or lesion type, unspecified whether angina present, unspecified whether north fork or transplanted heart 2. Memory impairment 3. Hypertension, unspecified type 4. Hyperlipidemia, unspecified hyperlipidemia type [facility] Cosigned by Nimesh Alva MD at 11/15/2024 9:07 AM EDT documented in this encounter Plan of Treatment Upcoming Encounters Date Type Department Care Team (Late st Contact Info) Description 12/03/2024 7:00 AM EDT Ancillary Procedure [facility] [address] [place] [address] 12/30/2024 3:10 PM EDT Office Visit [facility] Cardiology [facility] [place] [facility] [address] [place] [address] Lizy Travis NP [address] [place] [address] [place] [address] Scheduled Orders Name Type Priority Associated Diagnoses Orde r Schedule Vascular US duplex carotid bilateral Vascular Ultrasound Routine Coronary artery disease, unspecified vessel or lesion type, unspecified whether angina present, unspecified whether north fork or transplanted heart Memory impairment 1 Occurrences starting 11/15/2024 until 11/15/2025 documented as of this encounter Procedures Procedure Name Priority Date/Time Associated Diagnosis Comments ECG 12-LEAD Routine 11/15/2024 9:00 AM EDT Coronary artery disease, unspecified vessel or lesion type, unspecified whether angina present, unspecified whether north fork or transplanted heart documented in this encounter Results * ECG 12 lead (11/15/2024 9:00 AM EDT) Ventricular Rate ECG 64 BPM GEMUSE Atrial Rate 64 BPM GEMUSE P-R Interval 182 ms GEMUSE QRS Duration 104 ms GEMUSE Q-T Interval 404 ms GEMUSE QTc 416 ms GEMUSE P Wave [place] 80 degrees GEMUSE R [place] 89 degrees GEMUSE T [place] 45 degrees GEMUSE ECG Interpretation Normal sinus rhythm Normal ECG When compared with ECG of 09-SEP-2023 13:02, No significant change was found Confirmed by NIMESH ALVA ([id number]) on 11/17/2024 8:52:45 PM GEMUSE 11/15/2024 7:51 AM EDT 11/17/2024 8:52 PM EDT Fadumo Lu NP ECG ORDERABLES Edited Resu lt - Final GEMUSE documented in this encounter Visit Diagnoses Diagnosis Coronary artery disease, unspecified vessel or lesion type, unspecified whether angina present, unspecified whether north fork or transplanted heart- Primary Memory impairment Memory loss Hypertension, unspecified type Hyperlipidemia, unspecified hyperlipidemia type documented in this encounter Discontinued Medications Medication Sig Discontinue Reason Start Date End Da te metoprolol tartrate (LOPRESSOR) 50 mg tablet Take 1 tablet (50 mg total) by mouth 2 (two) times a day. Formulary change 11/15/2024 atorvastatin (LIPITOR) 80 mg tablet Take 1 tablet (80 mg total) by mouth 1 (one) time each day. Side effects 11/15/2024 clopidogreL (PLAVIX) 75 mg tablet Take 1 tablet (75 mg total) by mouth 1 (one) time each day. Therapy completed 11/15/2024 documented as of this encounter Historical Medications * This list may reflect changes made after this encounter. Lactobacillus acidophilus (PROBIOTIC ORAL) Take 1 tablet by mouth 1 (one) time each day. omega 0-kdp-yqf-fish oil (Fish OiL) 1,200 (144-216) mg capsule Take 1 capsule by mouth 1 (one) time each day. coenzyme Q-10 (Co Q-10) 100 mg capsule Take 1 capsule (100 mg total) by mouth 1 (one) time each day. ascorbic acid (VITAMIN C) 1,000 mg tablet Take 1 tablet (1,000 mg total) by mouth 1 (one) time each day. LORazepam (ATIVAN) 0.5 mg tablet Take 1-2 tablets (0.5-1 mg total) by mouth if needed for anxiety. traZODone (DESYREL) 100 mg tablet Take 2 tablets (200 mg total) by mouth at bedtime. cholecalciferol (VITAMIN D-3) 50 mcg (2,000 unit) tablet Take 1 tablet (2,000 Units total) by mouth 1 (one) time each day. aspirin 81 mg EC tablet Take 1 tablet (81 mg total) by mouth 1 (one) time each day. ezetimibe (ZETIA) 10 mg tablet Take 1 tablet (10 mg total) by mouth 1 (one) time each day. atorvastatin (LIPITOR) 80 mg tablet Take 1 tablet (80 mg total) by mouth 1 (one) time each day. 11/15/2024 clopidogreL (PLAVIX) 75 mg tablet Take 1 tablet (75 mg total) by mouth 1 (one) time each day. 11/15/2024 metoprolol tartrate (LOPRESSOR) 50 mg tablet Take 1 tablet (50 mg total) by mouth 2 (two) times a day. 11/15/2024 added in this encounter
== END 2024-11-20 07:49 | disposition home or self-care (01) ==
LOC: HO.CT 07:48
PROVIDERS: PCP Physician Assistant; Visit Provider Internal Medicine Pulmonary Disease
DX: R91.1 Solitary pulmonary nodule (principal); Z91.89 Other specified personal risk factors, not elsewhere classified
CPT/HCPCS: 71250

== ENCOUNTER → 2024-11-20 07:51 | Outpatient (BNV) | payer OTHER, SELFPAY | PROVIDERS: PCP Physician Assistant; Visit Provider Radiology Diagnostic Radiology | DX: J43.9 Emphysema, unspecified (principal); D35.02 Benign neoplasm of left adrenal gland | CPT/HCPCS: 71250 ==

== ENCOUNTER 2025-01-30 13:22 | Outpatient (AMB) | payer OTHER, SELFPAY ==
[2025-01-30 13:33] VITALS: BP 119/70; PULSE 81; O2SAT 96; BMI 27.1
--- NOTE | 2025-01-30 13:33 | A.OFFVIS_ITS ---
Vital Signs 01/30/25 13:33 Height 6 ft Weight 200 lb BMI 27.1 BP 119/70 Blood Pressure Location Lt brachial Position Sitting Pulse 81 Pulse Source Pulse Oximeter Pulse Oximetry (%) 96 Oxygen Delivery Method Room Air Intake Visit Reasons: pulmonary embolism Allergies No Known Allergies Allergy (Verified 08/06/24 14:44) HPI HPI pulmonary embolism: Details: 49-year-old gentleman, former 25-30 pack-year smoker, quit 2022 with prior quadruple bypass followed for COPD and pulmonary nodules. Patient had follow-up CT chest that showed stable pulmonary nodule. His PFT also showed mild COPD. He denies acute exacerbations. [facility] Medical History Leukocytosis Thrombocytosis Full dentures Anxiety Depression Surgical History History of dental surgery Family History Father Lung cancer HTN (hypertension) Hyperlipidemia Colon cancer Mother Breast cancer Hyperlipidemia Thyroid disease IBS (irritable colon syndrome) Maternal Grandmother Paget's bone disease IBS (irritable colon syndrome) Other Mental health disorder Social History (Updated 01/30/25 @ 13:40 by JO Fontanez) Household Members: Family Housing: House Alcohol intake: former Patient Tobacco Use Status: Current someday Tobacco user Tobacco use type: Cigarette Cigarette Packs Per Day: 1 Cigarettes Per Day: 3 Years Smoked: 20 e-Cigarette/Vaping Use: Former Use Second Hand Smoke Exposure: Yes Substance Use Type: Marijuana service: No 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 needs: No Hearing needs: No Vision needs: No Review of Systems Const Denies daytime sleepiness, Denies excessive sweating, Denies fatigue, Denies fever(s), Denies lethargy, Denies malaise, Denies night sweats, Denies snoring and Denies weight loss Eyes Denies blurry vision and Denies itchy eyes ENT Denies nasal congestion, Denies post nasal drip, Denies sinus pain, Denies sinus pressure and Denies other ( Thrush) Card Denies chest pain, Denies pedal edema, Denies dyspnea, Denies orthopnea and Denies paroxysmal nocturnal dyspnea Resp Denies cough, Denies hemoptysis, Denies excessive phlegm production, Denies dyspnea, Denies snoring and Denies wheezing GI Denies abdominal pain and Denies heartburn Musc Denies myalgias, Denies arthralgias and Denies joint swelling Skin/Breast Denies rash Neuro Denies memory loss and Denies seizure-like activity Psych Denies abnormal sleep pattern, Denies anxiety and Denies memory loss Endo Denies excessive sweating, Denies fatigue and Denies heat intolerance Chago/Lymph Denies easy bruising Aller/Immun Denies itchy eyes, Denies seasonal rhinorrhea and Denies wheezing Physical Exam Vital Signs: Last Vital Signs Pulse 81 01/30/25 13:33 BP 119/70 01/30/25 13:33 Pulse Ox 96 01/30/25 13:33 Oxygen Delivery Method Room Air 01/30/25 13:33 BMI result Body Mass Index 27.1 Const General: no acute distress and alert Nutritional Appearance: not obese Orientation/consciousness: Other orientation findings ( oriented) HEENT Head: Yes atraumatic Eyes General: appearance normal, both eyes and all related structures Sclerae: sclerae normal EOM: EOMs intact bilaterally Neck Neck: Yes supple Lymphatic: no lymphadenopathy noted Resp Effort & Inspection: normal respiratory effort and no use of accessory muscles Auscultation: clear to auscultation bilaterally Cardio Rate: regular rate Rhythm: regular rhythm Heart sounds: no gallops, no murmurs and no rubs Skin General skin exam: other ( warm) Extrem General: No clubbing, No cyanosis and No edema Assessment & Plan Assessment & Plan (1) Pulmonary nodule less than 1 cm in diameter with moderate to high risk for malignant neoplasm: Code(s): R91.1 - Solitary pulmonary nodule; Z91.89 - Other specified personal risk factors, not elsewhere classified Category: Medical Plan: Stable findings on follow-up CT chest. Will repeat CT chest in 12 months, if stable to time, no further imaging follow-up is required. (2) COPD (chronic obstructive pulmonary disease): Code(s): J44.9 - Chronic obstructive pulmonary disease, unspecified Category: Medical Plan: Results of pulmonary function test reviewed, underlying mild COPD. Mildly symptomatic. Will start on Incruse. Orders: Orders CT chest wo IV con 01/19/26 R91.1 - Solitary pulmonary nodule, Z91.89 - Other specified personal risk factors, not elsewhere classified Medications: New umeclidinium 62.5 mcg/actuation (Incruse Ellipta) 1 inh inhalation DAILY 1 ea 6RF R91.1 - Solitary pulmonary nodule, Z91.89 - Other specified personal risk factors, not elsewhere classified Coding Level of Care Code Est Pt Level 4 (99126) Diagnoses Pulmonary nodule less than 1 cm in diameter with moderate to high risk for malignant neoplasm R91.1; Z91.89 COPD (chronic obstructive pulmonary disease) J44.9
--- OUTSIDE RECORDS SUMMARY | 2025-01-30 15:45 | XMS_ITS | Clinical Summary ---
Author Organization [facility] Address [address] [place] [address] Phone Care Team Providers Care Fuel Technician Name Role Phone Unavailable Primary Care Provider [...] 1 (one) time each day. Active omega 6-wpu-ras-fish oil (Fish OiL) 1,200 (144-216) mg capsule Take 1 capsule by mouth 1 (one) time each day. Active Lactobacillus acidophilus (PROBIOTIC ORAL) Take 1 tablet by mouth 1 (one) time each day. Active metoprolol succinate (TOPROL-XL) 50 mg 24 hr tabletIndications :Coronary artery disease, unspecified vessel or lesion type, unspecified whether angina present, unspecified whether [place] or transplanted heart Take 1 tablet (50 mg total) by mouth 1 (one) time each day. Do not crush or chew. 90 each 2 5 Active rosuvastatin (CRESTOR) 20 mg tabletIndications :Coronary artery disease, unspecified vessel or lesion type, unspecified whether angina present, unspecified whether [place] or transplanted heart Take 1 tablet (20 mg total) by mouth 1 (one) time each day. 90 each 2 5 Active Active Problems Problem Noted Date Diagnosed Date NSTEMI (non-ST elevated myoc ardial infarction) ([facility] V24, [facility] V28) 11/12/2024 Hypertension 11/12/2024 Assessment & Plan (11/15/2024 [...] Encounters Date Type Department Care Team Description 11/25/2024 Telephone [facility] Cardiology [facility] [address] [place] [address] Lizy Travis NP Appointment (No DX for Carotid US) 11/15/2024 7:40 AM EDT Office Visit [facility] Cardiology [facility] [address] [place] [address] Lizy Travis NP Coronary artery disease, unspecified vessel or lesion type, unspecified whether angina present, unspecified whether [place] or transplanted heart (Primary Dx); Memory impairment; Hypertension, unspecified type; Hyperlipidemia, unspecified hyperlipidemia type; Forgetfulness; Dizziness and giddiness 11/06/2024 Telephone [facility] Cardiology [facility] [address] [place] [address] Nimesh Alva MD Med Change Request from Last 3 Months Surgical History Surgery Date Site/Laterality Comments CARDIAC CAT[place] [facility] [place]/DIEGO/ Indications: NSTEMI Medical History [...] Care Team (Late st Contact Info) Description 02/13/2025 7:45 AM EDT Ancillary Procedure [facility] Cardiology [facility] [address] [place] [address] 02/24/2025 7:40 AM EDT Office Visit [facility] [address] [place] [address] [address] [place] [address] Lizy Travis NP [address] [place] [address] [place] [address] Health Maintenance Due Date Last Done Comments [...] - 2023-2 5 season) 2024 Influenza Vaccine (Season Ended) 2025 HIB Vaccines Aged Out No longer eligi [...] age to complete this topic Meningococcal B Vaccine Aged Out No l onger eligible based on patient's age to complete [...] type, unspecified whether angina present, unspecified whether [place] or transplanted heart from Last 3 Months Results * ECG 12 lead (11/15/2024 9:00 AM EDT) Ventricular Rate ECG 64 BPM GEMUSE Atrial Rate 64 BPM GEMUSE P-R Interval 182 ms GEMUSE QRS Duration 104 ms GEMUSE Q-T Interval 404 ms GEMUSE QTc 416 ms GEMUSE P Wave [place] 80 degrees GEMUSE R [place] 89 degrees GEMUSE T [place] 45 degrees GEMUSE ECG Interpretation Normal sinus rhythm Normal ECG When compared with ECG of 09-SEP-2023 13:02, No significant change was found Confirmed by NIMESH ALVA ([id number]) on 11/17/2024 8:52:45 PM GEMUSE 11/15/2024 7:51 AM EDT 11/17/2024 8:52 PM EDT Fadumo Lu NP ECG ORDERABLES Edited Resu lt - Final GEMUSE from Last 3 Months Insurance [facility]
== END 2025-01-30 13:57 | disposition home or self-care (01) ==
LOC: HO.HPS 13:22
PROVIDERS: PCP Physician Assistant; Visit Provider Internal Medicine Pulmonary Disease
DX: R91.1 Solitary pulmonary nodule (principal); Z91.89 Other specified personal risk factors, not elsewhere classified; J44.9 Chronic obstructive pulmonary disease, unspecified
CPT/HCPCS: 99214

== ENCOUNTER → 2025-01-30 13:22 | Outpatient (BNVA) | payer OTHER, SELFPAY | PROVIDERS: PCP Physician Assistant; Visit Provider Internal Medicine Pulmonary Disease | DX: J44.9 Chronic obstructive pulmonary disease, unspecified (principal); R91.1 Solitary pulmonary nodule; Z91.89 Other specified personal risk factors, not elsewhere classified | CPT/HCPCS: 99212 ==

== ENCOUNTER 2025-02-04 15:10 | Outpatient (AMB) | payer OTHER, SELFPAY ==
[2025-02-04 15:24] VITALS: BP 130/72; PULSE 64; TEMP 36.3; O2SAT 97; BMI 27.8
--- NOTE | 2025-02-04 15:24 | A.OFFPC_ITS ---
Vital Signs 02/04/25 15:24 Height 6 ft Weight 205 lb BMI 27.8 BP 130/72 Blood Pressure Location Lt brachial Position Sitting Pulse 64 Pulse Source Pulse Oximeter Temp 97.3 F Temp Source Temporal Artery Scan Pulse Oximetry (%) 97 Oxygen Delivery Method Room Air Intake Visit Reasons: pe Prune Washer Required: No Information Interpreted: non-clinical & clinical Weaver Needle Loom: Not Required per policy Accompanied by: Self / Same As Patient Allergies sertraline [From Zoloft] Adverse Reaction (Intermediate, Verified 02/04/25 15:54) RLS Medication List - Last Reconciled 02/04/25 by Colton Hart PA-C aspirin 81 mg PO DAILY 90 days atorvastatin 80 mg PO DAILY cholecalciferol (vitamin D3) 50 mcg PO DAILY clopidogrel 75 mg PO DAILY 90 days cyclobenzaprine 5 mg PO BEDTIME 15 days ezetimibe 10 mg PO DAILY 90 days lorazepam 0.5 mg PO BID PRN 15 days metoprolol tartrate 50 mg PO BID nicotine 1 patch transdermal DAILY nicotine (polacrilex) 2 mg buccal Q2H PRN 15 days trazodone 150 mg PO BEDTIME 30 days trazodone 200 mg (2 x 100 mg) PO BEDTIME 90 days umeclidinium 62.5 mcg/actuation (Incruse Ellipta) 1 inh inhalation DAILY Tobacco use date assessed: 02/04/25 Dental Screening Dental Screen Date: 02/04/25 Did you have a dental visit in the last 12 months?: Yes Did you have a dental problem in the last 6 months where you did not have access to dental care?: No Was dental information given to patient?: Patient has dentist HPI pe HPI Details Patient is a 49-year-old male here today for annual . Patient has a past medical history si gnificant for hypertension, generalized anxiety disorder, history of hypercalcemia, tobacco dependency. Concern--> ANXIETY-> Zeus expresses significant events leading to increased anxiety and weight loss. He reports the of his mother in December, significant role shifts in his personal life, and increased responsibilities for his mother's estate. He is currently experiencing anxiety, worsened by job insecurity. He historically used lorazepam, providing limited relief, and currently engages in weekly therapy. Recent weight loss was primarily due to stress-related appetite changes, and he is maintaining a healthy diet. He reports erectile dysfunction and is interested in medical options. Coronary artery disease: Underwent coronary artery bypass in Aug 2023, doing very well. In cardiac rehab this time. On high potency statin, clopidogrel and metoprolol. Unfortunately due to his increased anxiety has picked up smoking a few cigarettes per day to help with the stress relief. He has followed up with his ore charger in [place] in did undergo cardiac stress test which apparently was normal. Since surgery has been having some upper back pain related to sleeping position .. Pulmonary nodule: Has followed by [place] pulmonology, most recent CT showing stable nodule and will repeat CT scans on a 12 month Colorectal cancer screening; colonoscopy done with Dr gambino in September of 2022, completely normal repeat in 10 years. Vaccines: Up-to-date with COVID, pneumonia and tetanus. Declines flu vaccine [facility] Medical History Leukocytosis Thrombocytosis Full dentures Anxiety Depression Surgical History History of dental surgery Family History Father Lung cancer HTN (hypertension) Hyperlipidemia Colon cancer Mother Breast cancer Hyperlipidemia Thyroid disease IBS (irritable colon syndrome) Maternal Grandmother Paget's bone disease IBS (irritable colon syndrome) Other Mental health disorder Social History Household Members: Family Housing: House Alcohol intake: former Patient Tobacco Use Status: Current someday Tobacco user Tobacco use type: Cigarette Cigarette Packs Per Day: 1 Cigarettes Per Day: 3 Years Smoked: 20 e-Cigarette/Vaping Use: Former Use Second Hand Smoke Exposure: Yes Substance Use Type: Marijuana service: No Current occupational status: employed and other Current occupation: Construction Cognitive needs: No Hearing needs: No Vision needs: No Questionnaire PHQ-9 Over the last 2 weeks, how often have you been bothered by any of the following problems? 1. Little interest or pleasure in doing things: several days 2. Feeling down, depressed, or hopeless: several days 3. Trouble falling or staying asleep, or sleeping too much: several days 4. Feeling tired or having little energy: several days 5. Poor appetite or overeating: several days 6. Feeling bad about yourself - or that you are a failure or have let yourself or your family down: not at all 7. Trouble concentrating on things, such as reading the newspaper or watching television: several days 8. Moving or speaking so slowly that other people could have noticed. Or the opposite - being so fidgety or restless that you have been moving around a lot more than usual: not at all 9. Thoughts that you would be better off or of hurting yourself in some way: not at all Total score: 6 09485 - PHQ-9 Billing: Yes Source: Developed by Drs. Riky Roldan, Saida Grace, José Luis Sun and colleagues, with an educational albin from [employer]. Thrive Questionnaire Date Thrive assessed: 02/04/25 I am a: Patient What is your living situation today?: I have a place to live, but I am worried about losing it in the future Within the past 12 months, did the food you bought not last and you didn't have the money to get more?: Never true Within the past 12 months, did you worry whether your food would run out before you got money to buy more?: Never true Do you have trouble paying for medicines?: No Do you have trouble getting transportation to medical appointments?: No Do you have trouble paying your heating and electricity bill?: No Do you have trouble taking care of your child, family member or friend?: No Do you have trouble with day-to-day activities such as bathing, preparing meals, shopping, managing finances, etc.?: No Are you currently unemployed and looking for a job?: No Are you interested in more education?: No Please select the resources that you would like help with: None Currently or been in a relationship where the following occur: No concerns reported THRIVE Score: 1 AUDIT C Alcohol Use Questionnaire (AUDIT-C) 1. How often do you have a drink containing alcohol?: Monthly or less 2. How many drinks containing alcohol do you have on a typical day when you are drinking?: 1 or 2 3. How often do you have six or more drinks on one occasion?: Never Total Score: 1 MARCUS-7 AMB Questionnaire MARCUS-7 Date MARCUS - 7 assessed: 02/04/25 Feeling nervous, anxious, or on edge: 1 = Several days Not being able to stop or control worryin = Several days Worrying too much about different things: 1 = Several days Trouble relaxin = Several days Being so restless that it is hard to sit still: 1 = Several days Becoming easily annoyed or irritable: 1 = Several days Feeling afraid as if something awful might happen: 1 = Several days Total MARCUS-7 score (0-4 normal; 5-9 mild; 10-14 moderate; 15-21 severe): 7 Source: Developed by Drs. Riky Roldan, Saida Grace, José Luis Sun and colleagues, with an educational albin from [employer]. MARCUS-7 Assessment Billing MARCUS-7 Assessment Tool: MARCUS-7 Assessment 85173 Review of Systems Const Denies body aches, Denies chills, Denies excessive sweating, Denies fatigue, Denies fever(s) and Denies headache(s) Eyes Denies blurry vision ENT Denies dysphagia, Denies vertigo, Denies dizziness, Denies headache(s), Denies hearing loss and Denies tinnitus Card Denies chest pain, Denies chest pain with activity, Denies syncope, Denies irregular heart rhythm and Denies dyspnea Resp Denies chest congestion, Denies cough, Denies hemoptysis, Denies dyspnea and Denies wheezing GI Denies abdominal pain, Denies melena, Denies hematochezia, Denies coffee ground emesis, Denies dysphagia, Denies diarrhea, Denies nausea and Denies vomiting Denies difficulty urinating, Denies dysuria, Denies urinary frequency, Denies urinary hesitancy and Denies urinary urgency Musc Denies arthralgias, Denies limited range of motion, Denies muscle cramps and Denies muscle weakness Skin/Breast Denies rash and Denies skin ulcer Neuro Denies Abnormal speech present, Denies confusion, Denies vertigo, Denies dizziness, Denies syncope, Denies headache(s), Denies memory loss and Denies seizure-like activity Psych Denies anxiety, Denies confusion, Denies depression, Denies memory loss, Denies panic attacks and Denies paranoia Endo Denies excessive sweating, Denies fatigue, Denies flushing, Denies polydipsia and Denies polyuria Aller/Immun Denies wheezing Physical exam (Primary Care) Vital Signs: Last Vital Signs Temp 97.3 F 02/04/25 15:24 Pulse 64 02/04/25 15:24 BP 130/72 02/04/25 15:24 Pulse Ox 97 02/04/25 15:24 Oxygen Delivery Method Room Air 02/04/25 15:24 BMI result Body Mass Index 27.8 Tobacco/Smoking Status: Tobacco use Status Tobacco use date assessed 02/04/25 02/04/25 15:27 Patient Tobacco Use Status Current someday Tobacco 02/04/25 15:27 Tobacco use type Cigarette 02/04/25 15:27 e-Cigarette/Vaping Use Former Use 02/04/25 15:27 PHQ-9: PHQ-9 Score PHQ-9: Total score 6 02/04/25 15:49 Thrive Assessment: Date of Thrive Assessment Date Thrive assessed 02/04/25 02/04/25 15:27 Currently or been in a relationship where the following occur: No concerns r eported Const General: cooperative, comfortable, no acute distress, alert and awake; No confusion Orientation/consciousness: oriented to person, oriented to place, patient oriented x3 and No confusion HENMT Head: Yes normocephalic Ears: external ears normal and TM's normal bilaterally Face and sinus: No sinus tenderness Mouth: Normal oral and palatal mucosa present and tongue normal Teeth and gingiva: dentition normal and gingiva normal Throat: Yes posterior oropharynx normal, Yes tonsils normal and Yes uvula midline Eyes Conjunctivae: conjunctivae normal Sclerae: sclerae normal Pupils: Equal, round and reactive pupils present EOM: EOMs intact bilaterally Direct Ophthalmoscopy: No no photophobia Neck Neck: Yes no lymphadenopathy, No tender and Yes no JVD Thyroid: Thyroid normal Carotids: no bruits Chest Chest palpation & inspection: no tenderness Resp Effort & Inspection: normal respiratory effort, no audible wheezes, not labored and no stridor Auscultation: no crackles, no rales, no rhonchi and no wheezes Cardio Jugular venous distension: no JVD Rate: regular rate, not bradycardic and not tachycardic Rhythm: regular rhythm Bruits: no carotid bruits Peripheral pulses: Peripheral pulses 2+ throughout GI Inspection: Yes normal to inspection, No abdominal wall ecchymosis and No visible herniation Palpation (GI): Soft to palpation, nontender, no guarding, not rigid and No hepatosplenomegaly present Auscultation: normoactive bowel sounds General: Yes no CVA tenderness Back/Spine/Pelvis Back: no CVA tenderness and No back tenderness Cervical Spine: cervical ROM normal Thoracic/Lumbar Spine: thoracic and lumbar spine normal to inspection, straight leg raise negative bilaterally, No thoraco-lumbar ROM limited and No lumbar spinal tenderness Skin Lesions: no lesions Rashes: no rashes Wounds: no wounds Neuro General: oriented to person, oriented to place, patient oriented x3, CN's II-XI intact bilaterally and No confusion Cranial nerves: Yes Equal, round and reactive pupils present and Yes Normal accommodation reflex present Cognition (Neuro): normal cognition Speech: No Abnormal speech present Gait exam (Neuro): Normal gait present Motor exam (neuro): 5/5 motor strength present throughout Extrem Right upper extremity: full ROM; no cyanosis Left upper extremity: full ROM; no cyanosis Right lower extremity: no edema Left lower extremity: no edema Psych Appearance: grossly normal Mental Status: mental status grossly normal Affect: normal affect Attitude: cooperative Thought process: Normal thought process present Coding Level of Care Code Est Pt Prev Care 40-64y(07472) Diagnoses Annual physical exam Z00.00 Coronary artery disease involving coronary bypass graft of [place] heart without angina pectoris I25.810 Associated angina: without angina [place] vs. transplanted heart: [place] heart Primary insomnia F51.01 Insomnia type: primary Erectile dysfunction, unspecified erectile dysfunction type N52.9 Erectile dysfunction type: unspecified MARCUS (generalized anxiety disorder) F41.1 Centrilobular emphysema J43.2 Emphysema type: centrilobular Additional Codes MARCUS-7 Assessment Billing - MARCUS-7 Assessment Tool: MARCUS-7 Assessment 29828 ([id number]) PHQ-9 - 94451 - PHQ-9 Billing: Yes ([id number]) Assessment & Plan Assessment & Plan (1) Annual physical exam: Code(s): Z00.00 - Encounter for general adult medical examination without abnormal findi ngs Category: Medical Plan: As per HPI (2) CAD (coronary artery disease) of artery bypass graft: Comment: Quadruple bypass done in August 2023 Code(s): I25.810 - Atherosclerosis of coronary artery bypass graft(s) without angina pectoris Category: Medical Qualifiers: Associated angina: without angina [place] vs. transplanted heart: [place] heart Qualified Code(s): I25.810 - Atherosclerosis of coronary artery bypass graft(s) without angina pectoris Plan: Patient continues to follow cardiology. Most recent lipid panel showing excellent control of his total cholesterol and LDL. He will continue on dual antiplatelet therapy and high-dose statin therapy with goal LDL to remain below 70. (3) Insomnia: Code(s): G47.00 - Insomnia, unspecified Category: Medical Qualifiers: Insomnia type: primary Qualified Code(s): F51.01 - Primary insomnia Plan: Patient has noted that trazodone 200 mg at bedtime has been effective for sleep. (4) Erectile dysfunction: Code(s): N52.9 - Male erectile dysfunction, unspecified Category: Medical Qualifiers: Erectile dysfunction type: unspecified Qualified Code(s): N52.9 - Male erectile dysfunction, unspecified Plan: Prescribed Tadalafil (Cialis) to manage erectile dysfunction, considering current stressors and medication options. (5) MARCUS (generalized anxiety disorder): Code(s): F41.1 - Generalized anxiety disorder Category: Medical Plan: Patient has been experiencing increased anxiety as of lately. A management plan includes initiating escitalopram (Lexapro), monitoring response, and continuing lorazepam as needed for acute management. (6) Pulmonary emphysema: Code(s): J43.9 - Emphysema, unspecified Category: Medical Qualifiers: Emphysema type: centrilobular Qualified Code(s): J43.2 - Centrilobular emphysema Plan: Has been a long-time smoker. Unfortunately continues to smoke due to his anxiety and stress. He does understand he needs to completely quit as he has had coronary artery bypass last year. He is now followed by pulmonology and getting lung CT scans annually. Medications: New escitalopram oxalate (Lexapro) 10 mg PO DAILY 30 tabs 2RF 30 days F41.1 - Generalized anxiety disorder docusate sodium (Colace) 100 mg PO BID PRN 60 caps 0RF constipation 30 days tadalafil 20 mg PO DAILY PRN 7 tabs 0RF sexual activity 7 days N52.9 - Male erectile dysfunction, unspecified
--- OUTSIDE RECORDS SUMMARY | 2025-02-04 18:17 | XMS_ITS | Clinical Summary ---
Author Organization [facility] Address [address] [place] [address] Phone Care Team Providers Care Operation Supervisor Name Role Phone Unavailable Primary Care Provider [...] 1 (one) time each day. Active omega 8-vcl-uru-fish oil (Fish OiL) 1,200 (144-216) mg capsule Take 1 capsule by mouth 1 (one) time each day. Active Lactobacillus acidophilus (PROBIOTIC ORAL) Take 1 tablet by mouth 1 (one) time each day. Active metoprolol succinate (TOPROL-XL) 50 mg 24 hr tabletIndications :Coronary artery disease, unspecified vessel or lesion type, unspecified whether angina present, unspecified whether [place] or transplanted heart Take 1 tablet (50 mg total) by mouth 1 (one) time each day. Do not crush or chew. 90 each 2 5 Active rosuvastatin (CRESTOR) 20 mg tabletIndications :Coronary artery disease, unspecified vessel or lesion type, unspecified whether angina present, unspecified whether [place] or transplanted heart Take 1 tablet (20 mg total) by mouth 1 (one) time each day. 90 each 2 5 Active Active Problems Problem Noted Date Diagnosed Date NSTEMI (non-ST elevated myoc ardial infarction) ([facility] V24, [facility] V28) 11/12/2024 Hypertension 11/12/2024 Assessment & [...] Type Department Care Team Description 11/25/2024 Telephone [facility] Cardiology [facility] [address] [place] [address] Lizy Travis NP Appointment (No DX for Carotid US) 11/15/2024 7:40 AM EDT Office Visit [facility] Cardiology [facility] [address] [place] [address] Lizy Travis NP Coronary artery disease, unspecified vessel or lesion type, unspecified whether angina present, unspecified whether [place] or transplanted heart (Primary Dx); Memory impairment; Hypertension, unspecified type; Hyperlipidemia, unspecified hyperlipidemia type; Forgetfulness; Dizziness and giddiness 11/06/2024 Telephone [facility] Cardiology [facility] [address] [place] [address] Nimesh Alva MD Med Change Request from Last 3 Months Surgical History Surgery Date Site/Laterality Comments CARDIAC CATHETERIZATION Done at [facility] on 09/12/23 w/DIEGO/ Indications: NSTEMI Medical History [...] Description 02/13/2025 7:45 AM EDT Ancillary Procedure [facility] Cardiology [facility] [address] [place] [address] 02/24/2025 7:40 AM EDT Office Visit [facility] [address] [place] [address] [address] [place] [address] Lizy Travis NP [address] [place] [address] [place] [address] Health Maintenance Due Date Last Done Comments [...] type, unspecified whether angina present, unspecified whether [place] or transplanted heart from Last 3 Months Results * ECG 12 lead (11/15/2024 9:00 AM EDT) Ventricular Rate ECG 64 BPM GEMUSE Atrial Rate 64 BPM GEMUSE P-R Interval 182 ms GEMUSE QRS Duration 104 ms GEMUSE Q-T Interval 404 ms GEMUSE QTc 416 ms GEMUSE P Wave [place] 80 degrees GEMUSE R [place] 89 degrees GEMUSE T [place] 45 degrees GEMUSE ECG Interpretation Normal sinus rhythm Normal ECG When compared with ECG of 09-SEP-2023 13:02, No significant change was found Confirmed by NIMESH ALVA ([id number]) on 11/17/2024 8:52:45 PM GEMUSE 11/15/2024 7:51 AM EDT 11/17/2024 8:52 PM EDT Fadumo Lu NP ECG ORDERABLES Edited Resu lt - Final GEMUSE from Last 3 Months Insurance [facility]
== END 2025-02-04 16:14 | disposition home or self-care (01) ==
LOC: HO.HMCH 15:10
PROVIDERS: PCP Physician Assistant; Visit Provider Physician Assistant
DX: Z00.00 Encounter for general adult medical examination without abnormal findings (principal); I25.810 Atherosclerosis of coronary artery bypass graft(s) without angina pectoris; J43.2 Centrilobular emphysema; F51.01 Primary insomnia; N52.9 Male erectile dysfunction, unspecified; F41.1 Generalized anxiety disorder

== ENCOUNTER → 2025-02-04 15:10 | Outpatient (BNVA) | payer OTHER, SELFPAY | PROVIDERS: PCP Physician Assistant; Visit Provider Physician Assistant | DX: Z00.00 Encounter for general adult medical examination without abnormal findings (principal); I25.810 Atherosclerosis of coronary artery bypass graft(s) without angina pectoris; F51.01 Primary insomnia; N52.9 Male erectile dysfunction, unspecified; F41.1 Generalized anxiety disorder; J43.2 Centrilobular emphysema; Z79.899 Other long term (current) drug therapy; Z13.30 Encounter for screening examination for mental health and behavioral disorders, unspecified | CPT/HCPCS: 96127; 99396 ==

== ENCOUNTER 2025-03-03 13:05 | Outpatient (AMB) | payer OTHER, SELFPAY ==
--- NOTE | 2025-03-03 13:01 | A.OFFPC_ITS ---
Intake Visit Reasons: telehealth - anxiety med Briar Shop Supervisor Required: No Information Interpreted: non-clinical & clinical Dental Hygienist: Not Required per policy Accompanied by: Self / Same As Patient Allergies escitalopram (From Lexapro) Adverse Reaction (Intermediate, Verified 03/03/25 13:09) night sweats sertraline (From Zoloft) Adverse Reaction (Intermediate, Verified 03/03/25 13:02) RLS Tobacco use date assessed: 02/04/25 Dental Screening Dental Screen Date: 02/04/25 HPI telehealth - anxiety med HPI Details Patient is a 50-year-old male being evaluated today via telephone. At last visit we discussed patient's anxiety that was being exacerbated by a lot of personal issues has been happening recently getting out of a long-term relationship, has mother dying and recently having open heart surgery in 2023. We did try Lexapro 5 mg though reports side effects of night sweats. Has tried sertraline in the past though reported dizziness. Has been using lorazepam 0.5 mg which he does report working well to reduce his overall anxious symptoms though only short lives. He also is complaining of lack of energy and low libido in his interested in getting his testosterone checked. [facility] Medical History Leukocytosis Thrombocytosis Full dentures Anxiety Depression Surgical History History of dental surgery Family History Father Lung cancer HTN (hypertension) Hyperlipidemia Colon cancer Mother Breast cancer Hyperlipidemia Thyroid disease IBS (irritable colon syndrome) Maternal Grandmother Paget's bone disease IBS (irritable colon syndrome) Other Mental health disorder Social History Household Members: Family Housing: House Alcohol intake: former Patient Tobacco Use Status: Current someday Tobacco user Tobacco use type: Cigarette Cigarette Packs Per Day: 1 Cigarettes Per Day: 3 Years Smoked: 20 e-Cigarette/Vaping Use: Former Use Second Hand Smoke Exposure: Yes Substance Use Type: Marijuana service: No Current occupational status: employed and other Current occupation: Construction Cognitive needs: No Hearing needs: No Vision needs: No Questionnaire Thrive Questionnaire Date Thrive assessed: 02/04/25 MARCUS-7 AMB Questionnaire MARCUS-7 Date MARCUS - 7 assessed: 02/04/25 Source: Developed by Drs. Riky Roldan, Saida Grace, José Luis Sun and colleagues, with an educational albin from [employer]. Review of Systems Const Reports fatigue and Denies headache(s) Eyes Denies loss of vision ENT Denies vertigo, Denies dizziness, Denies headache(s) and Denies sore throat Card Denies chest pain, Denies leg edema and Denies lightheadedness Resp Denies cough, Denies hemoptysis and Denies wheezing GI Denies abdominal pain, Denies melena, Denies constipation, Denies diarrhea and Denies vomiting Reports change in libido, Denies dysuria, Denies urinary frequency and Denies urinary urgency Musc Denies arthralgias, Denies joint swelling, Denies numbness and Denies tingling Neuro Denies behavioral changes, Denies vertigo, Denies dizziness, Denies headache(s), Denies loss of vision, Denies memory loss, Denies numbness and Denies tingling Psych Reports anxiety, Denies behavioral changes, Reports change in libido, Denies depression, Denies memory loss and Denies panic attacks Endo Reports change in libido and Reports fatigue Chago/Lymph Denies easy bleeding and Denies easy bruising Aller/Immun Denies wheezing Physical exam (Primary Care) Tobacco/Smoking Status: Tobacco use Status Tobacco use date assessed 02/04/25 03/03/25 13:04 Patient Tobacco Use Status Current someday Tobacco 03/03/25 13:04 Tobacco use type Cigarette 03/03/25 13:04 e-Cigarette/Vaping Use Former Use 03/03/25 13:04 Thrive Assessment: Date of Thrive Assessment Date Thrive assessed 02/04/25 03/03/25 13:04 Telehealth Telehealth Telehealth Platform: Telephone Location of provider rendering services: practice address Location of patient: address on file Patient Identification confirmed using: Name, : Yes Telehealth method: voice only Patient verbally consented to treatment: Yes Patient verbally consented to billing insurance company: Yes Patient informed of any privacy concerns related to visit: Yes Coding Level of Care Code Tele Est Pt Level 4 (53421) Est Pt Prev Care 18-39y(55684) Diagnoses MARCUS (generalized anxiety disorder) F41.1 Low libido R68.82 Assessment & Plan Assessment & Plan (1) MARCUS (generalized anxiety disorder): Code(s): F41.1 - Generalized anxiety disorder Category: Medical Plan: Patient continues to have anxiety. Has tried 2 different SSRIs though had side effects. Has been using lorazepam 0.5 mg which has been effective for only a short term time. . He is interested in a longer-acting medication thus will switch to clonazepam 0.5 mg daily. Advised on reducing his dose of trazodone at night as he seems to be having a sedative effect when he is waking up in the mornings. (2) Low libido: Code(s): R68.82 - Decreased libido Category: Medical Plan: Patient reports having low energy and low libido has of late. Has been having a lot of personal issues as of lately that could be contributing. He is interested in getting a testosterone rechecked as his testosterone was 418 and 2023. We did discuss rechecking testosterone and refer him to Urology for hypogonadism workup and possible testosterone replacement. Orders: Orders Testosterone, Free/Total Today R68.82 - Decreased libido Referrals Urology Referral N52.9 - Male erectile dysfunction, unspecified Medications: New clonazepam (Klonopin) 0.5 mg PO DAILY 30 tabs 1RF 30 days F41.1 - Generalized anxiety disorder Discontinued lorazepam Discontinued Reason: Doctor's Order 0.5 mg PO BID 15 days PRN 30 tabs 2RF anxiety F41.1 - Generalized anxiety disorder escitalopram oxalate (Lexapro) Discontinued Reason: Doctor's Order 10 mg PO DAILY 30 days 30 tabs 2RF F41.1 - Generalized anxiety disorder
--- OUTSIDE RECORDS SUMMARY | 2025-03-03 13:33 | XMS_ITS | Clinical Summary ---
Author Organization [facility] Address [address] [facility] [address] [place] [address] Phone Care Team Providers Care Weaving Supervisor Name Role Phone Colton Hart Primary Care Provider [phone] Allergies No known active allergies Medications atorvastatin [...] Health Maintenance Due Date Last Done Comments Hepatitis B Vaccine (1 of 3 - 19+ 3-dose series) 02/22 Pneumococcal Vaccine: Peds ( 0 to 5 Years) and At-Risk Patients (6 to 49 Years) (1 of 2 - PCV) 02/23/1996 Influenza Vaccine (#1) 2025 Insurance Medicaid Medicaid Care Teams Weaving Supervisor Relationship Specialty Start Date End Date Colton Hart PA [address] [place] [address], [address] [place] [address] PCP - General Physician Auto Design Detailer 11/15/23
--- OUTSIDE RECORDS SUMMARY | 2025-03-03 13:33 | XMS_ITS | Clinical Summary ---
Author Organization [facility] Address [address] [place] [address] Phone Care Team Providers Care Recreation Coordinator Name Role Phone Colton Hart Primary Care Provider [phone] Allergies No known active allergies Medications ezetimibe [...] type, unspecified whether angina present, unspecified whether [place] or transplanted heart Take 1 tablet (50 mg total) by mouth 1 (one) time each day. Do not crush or chew. 90 each 2 5 Active rosuvastatin (CRESTOR) 20 mg tabletIndications :Coronary artery disease, unspecified vessel or lesion type, unspecified whether angina present, unspecified whether [place] or transplanted heart Take 1 tablet (20 mg total) by mouth 1 (one) time each day. 90 each 2 5 Active coenzyme Q-10 (Co Q-10) 100 mg capsule Take 1 capsule (100 mg total) by mouth 1 (one) time each day. 02/25/20 25 Discontinu ed(Therapy completed) omega 2-pcd-fgi-fish oil (Fish OiL) 1,200 (144-216) mg capsule Take 1 capsule by mouth 1 (one) time each day. 02/25/20 25 Discontinu ed(Therapy completed) Active Problems Problem Noted Date Diagnosed Date NSTEMI (non-ST elevated myoc ardial infarction) ([facility] V24, [facility] V28) 11/12/2024 Hypertension 11/12/2024 Assessment & Plan (02/24/2025 8:26 AM EDT): Blood pressure is well controlled today; 112/70. Continue on metoprolol. Assessment & Plan (11/15/2024 8:59 AM EDT): Blood pressure under excellent control, 114/72. Will continue on metoprolol, formulary change to succinate as outlined above. Hyperlipidemia 11/12/2024 Assessment & Plan (02/24/2025 8:26 AM EDT): Patient continues on rosuvastatin and zetia. Will recheck lipid panel and CMP. Assessment & Plan (11/15/2024 8:59 AM EDT): Patient to discontinue atorvastatin, trial rosuvastatin 20 mg daily to see if it helps alleviate his symptoms of joint pain. Will also continue on Zetia and omega-3 fish oil. He will continue following a low-cholesterol diet and remaining active. CAD (coronary artery disease) 11/12/2024 Assessment & Plan (02/24/2025 8:26 AM EDT): Patient with history of CAD status post CABG in August 2023. He denies exertional symptoms. Previously, he was reporting fatigue and joint pain. He switched to metoprolol succinate from metoprolol to tartrate and from atorvastatin 80 mg to rosuvastatin 20 mg. He does not report joint pain today. He states it is difficult to tell if the fatigue is improved due to his current emotional stressors in his life. He continues on aspirin as well. Patient advised to seek emergency medical attention by calling 911 if they were to develop severe dyspnea, chest pain that did not resolve with rest or nitroglycerin, or if they were to faint. Orders: Lipid panel; Future Comprehensive metabolic panel; Future Assessment & Plan (11/15/2024 8:59 AM EDT): [...] Encounters Date Type Department Care Team Description 02/24/2025 7:40 AM EDT Office Visit [facility] [address] [facility] [address] [place] [address] Lizy Travis, CLYDE Coronary artery disease involving [place] heart without angina pectoris, unspecified vessel or lesion type (Primary Dx); Hypertension, unspecified type; Hyperlipidemia, unspecified hyperlipidemia type; Lightheaded from Last 3 Months Surgical History Surgery Date Site/Laterality Comments CARDIAC CATHETERIZATION Done at [facility] on 09/12/23 w/DIEGO/ Indications: NSTEMI Medical History Medical History Date Comments Coronary artery disease Hypertension Family history of premature CAD Former smoker Social History Tobacco Use Types Packs/Day Years Used Date Smoking Tobacco: Every Day Cigarettes Last attempted to quit: 08/28/2023 Smokeless Tobacco: Never Tobacco Cessation:Ready to Q uit: Not Asked; Counseling Given: Not Answered Comments:Smokes 4-5 cigarettes per day Alcohol Use Standard Drinks/Week Comments Yes 0 (1 standard drink = 0.6 oz pur e alcohol) rarely Sex and Gender Information Value Date Recorded Sex Assigned at Not on file Legal Sex Male 10:18 AM EST Gender Identity Not on file Sexual Orientation Not on file Obstetrics History Last Filed Vital Signs Vital Sign Reading Time Taken Comments Blood Pressure 112/70 02/24/2025 7:34 AM EDT Pulse 70 02/24/2025 7:34 AM EDT Temperature - - Respiratory Rate - - Oxygen Saturation 97% 02/24/2025 7:34 AM EDT Inhaled Oxygen Concentration - - Weight 90.7 kg (200 lb) 02/24/2025 7:34 AM EDT Height 182.9 cm (6') 02/24/2025 7:34 AM EDT Body Mass Index 27.12 02/24/2025 7:34 AM EDT Plan of Treatment Health Maintenance Due Date Last Done Comments DTaP,Tdap,and Td Vaccines (1 - Tdap) 02/23/1996 Hepatitis B Vaccines (1 of 3 - 19+ 3-dose series) 02/23/1996 Pneumococcal Vaccine: Pediat rics (0 to 5 Years) and At-Risk Patients (6 to 49 Years) (1 of 2 - PCV) 02/23/1996 Cholesterol Screening (Lipid Panel) 07/26/2022 Colorectal Cancer Screening: Colonoscopy 07/26/2022 Depression Screening 07/26/2022 HIV Screening 07/26/2022 Hepatitis C Screening 07/26/2022 Social Influencers of Health Screening 07/26/2022 Hypertension/CHF/CAD Annual BMP Blood Test 03/22/2024 COVID-19 Vaccine ( - 2023-2 5 season) 2024 Influenza Vaccine (#1) 2025 HIB Vaccines Aged Out No longer [...] on patient's age to complete this topic Insurance [facility] PLAN Care Teams Recreation Coordinator Relationship Specialty Start Date End Date Colton Hart PA [address] [place] [phone] PCP - General Physician Fundraising Specialist 02/24/25
== END 2025-03-03 17:13 | disposition home or self-care (01) ==
LOC: HO.HMCH 13:05
PROVIDERS: PCP Physician Assistant; Visit Provider Physician Assistant
DX: Z00.00 Encounter for general adult medical examination without abnormal findings (principal); F41.1 Generalized anxiety disorder; R68.82 Decreased libido

== ENCOUNTER → 2025-03-03 13:05 | Outpatient (BNVA) | payer OTHER, SELFPAY | PROVIDERS: PCP Physician Assistant; Visit Provider Physician Assistant | DX: F41.1 Generalized anxiety disorder (principal); R68.82 Decreased libido; N52.9 Male erectile dysfunction, unspecified | CPT/HCPCS: 99396 ==

== ENCOUNTER 2025-04-15 12:52 | Outpatient (AMB) | payer OTHER, SELFPAY ==
--- NOTE | 2025-04-15 12:52 | A.OFFPC_ITS ---
Intake Visit Reasons: Telehealth( follow-up anxiety) Direct Chill Caster Required: No Sporting Goods Sales Manager: Not Required per policy Accompanied by: Self / Same As Patient Allergies escitalopram (From Lexapro) Adverse Reaction (Intermediate, Verified 04/15/25 13:04) night sweats sertraline (From Zoloft) Adverse Reaction (Intermediate, Verified 04/15/25 13:04) RLS Medication List - Last Reconciled 04/15/25 by Colton Hart PA-C aspirin 81 mg PO DAILY 90 days cholecalciferol (vitamin D3) (Vitamin D3) 50 mcg PO DAILY clonazepam (Klonopin) 0.5 mg PO DAILY 30 days clopidogrel 75 mg PO DAILY 90 days cyclobenzaprine 5 mg PO BEDTIME 15 days docusate sodium (Colace) 100 mg PO BID PRN 30 days ezetimibe 10 mg PO DAILY 90 days nicotine 1 patch transdermal DAILY nicotine (polacrilex) 2 mg buccal Q2H PRN 15 days rosuvastatin 20 mg PO BEDTIME tadalafil 20 mg PO DAILY PRN 7 days trazodone 100 mg PO BEDTIME umeclidinium 62.5 mcg/actuation (Incruse Ellipta) 1 inh inhalation DAILY Tobacco use date assessed: 02/04/25 Dental Screening Dental Screen Date: 02/04/25 HPI Telehealth( follow-up anxiety) HPI Details Patient is a 50-year-old male being evaluated today via telephone. Today we are following up on his anxiety. We did try Lexapro 5 mg though reports side effects of night sweats. Has tried sertraline in the past though reported dizziness. -- >Anxiety: Patient reports his anxiet y is about the same since switching from lorazepam to clonazepam. He has reduced his trazodone to 100 mg at night and has been feeling a bit better in the mornings. He does report still feeling a bit tired when he gets home from work. He continues to suffer from grief from the passing of his mother. .. Tobacco dependency: He does admit to smoking a few cigarettes per day and does understand he needs to quit especially being a open heart surgery patient. He is interested in restarting the nicotine patches He also is complaining of lack of energy and low libido in his interested in getting his testosterone checked. [facility] Medical History (Updated 04/15/25 @ 13:12 by Colton Hart PA-C) Leukocytosis Thrombocytosis Full dentures Anxiety Depression Surgical History History of quadruple bypass History of dental surgery Family History Father Lung cancer HTN (hypertension) Hyperlipidemia Colon cancer Mother Breast cancer Hyperlipidemia Thyroid disease IBS (irritable colon syndrome) Maternal Grandmother Paget's bone disease IBS (irritable colon syndrome) Other Mental health disorder Social History Household Members: Family Housing: House Alcohol intake: former Patient Tobacco Use Status: Current someday Tobacco user Tobacco use type: Cigarette Cigarette Packs Per Day: 0.5 Cigarettes Per Day: 10 Years Smoked: 20 e-Cigarette/Vaping Use: Former Use Second Hand Smoke Exposure: Yes Substance Use Type: Marijuana service: No Current occupational status: employed and other Current occupation: Construction Cognitive needs: No Hearing needs: No Vision needs: No Questionnaire Thrive Questionnaire Date Thrive assessed: 02/04/25 MARCUS-7 AMB Questionnaire MARCUS-7 Date MARCUS - 7 assessed: 02/04/25 Source: Developed by Drs. Riky Roldan, Saida Grace, José Luis Sun and colleagues, with an educational albin from [employer]. Review of Systems Const Reports fatigue and Denies headache(s) Eyes Denies loss of vision ENT Denies vertigo, Denies dizziness, Denies headache(s) and Denies sore throat Card Denies chest pain, Denies leg edema and Denies lightheadedness Resp Denies cough, Denies hemoptysis and Denies wheezing GI Denies abdominal pain, Denies melena, Denies constipation, Denies diarrhea and Denies vomiting Denies dysuria, Denies urinary frequency and Denies urinary urgency Musc Denies arthralgias, Denies joint swelling, Denies numbness and Denies tingling Neuro Denies behavioral changes, Denies vertigo, Denies dizziness, Denies headache(s), Denies loss of vision, Denies memory loss, Denies numbness and Denies tingling Psych Reports anxiety, Denies behavioral changes, Denies depression, Denies memory loss and Denies panic attacks Endo Reports fatigue Chago/Lymph Denies easy bleeding and Denies easy bruising Aller/Immun Denies wheezing Physical exam (Primary Care) Tobacco/Smoking Status: Tobacco use Status Tobacco use date assessed 02/04/25 04/15/25 12:56 Patient Tobacco Use Status Current someday Tobacco 04/15/25 12:56 Tobacco use type Cigarette 04/15/25 12:56 e-Cigarette/Vaping Use Former Use 04/15/25 12:56 Are you ready to quit: Yes Tobacco cessation counseling provided: Yes Items discussed: Nicotine replacement Relapse Prevention: discussed the importance of a supportive environment, discussed negative mood or depression after quitting, weight gain after smoking is common and discussed dietary, exercise and/or lifestyle changes Number of minutes spent counselin CPT code: 86580 - 4-10 Minutes Thrive Assessment: Date of Thrive Assessment Date Thrive assessed 02/04/25 04/15/25 12:56 Telehealth Telehealth Telehealth Platform: Telephone Location of provider rendering services: practice address Location of patient: address on file Patient Identification confirmed using: Name, : Yes Telehealth method: voice only Patient verbally consented to treatment: Yes Patient verbally consented to billing insurance company: Yes Patient informed of any privacy concerns related to visit: Yes Minutes spent on Phone/Video with Pt.: 11 Coding Level of Care Code Tele Est Pt Level 3 (08279) Diagnoses MARCUS (generalized anxiety disorder) F41.1 Tobacco dependence F17.200 Additional Codes Vital Signs *Quality* - CPT code: 83498 - 4-10 Minutes ([id number]) Assessment & Plan Assessment & Plan (1) MARCUS (generalized anxiety disorder): Code(s): F41.1 - Generalized anxiety disorder Category: Medical Plan: Patient continues to have anxiety which has been evident for quite some time now. He does Dr. With therapist and also is suffering with grief from the past having was mother and getting out of a long-term relationship. He is switch from lorazepam to clonazepam which seems to have and helpful though he is now trying to be more physically active and trying to take care of himself better which has been helpful. (2) Tobacco dependence: Code(s): F17.200 - Nicotine dependence, unspecified, uncomplicated Category: Medical Plan: Patient does understand he needs to quit smoking. He is willing to try the nicotine patches again. Medications: New nicotine 1 patch transdermal DAILY 14 ea 0RF 14 days F17.200 - Nicotine dependence, unspecified, uncomplicated nicotine 1 patch transdermal DAILY 14 ea 0RF 14 days F17.200 - Nicotine dependence, unspecified, uncomplicated Changed From trazodone 200 mg (2 x 100 mg) PO BEDTIME 90 days 180 tabs 2RF F32.A - Depression, unspecified, F41.9 - Anxiety disorder, unspecified To trazodone 100 mg PO BEDTIME F32.A - Depression, unspecified, F41.9 - Anxiety disorder, unspecified
--- OUTSIDE RECORDS SUMMARY | 2025-04-15 14:01 | XMS_ITS | Clinical Summary ---
Author Organization [facility] Address [address] [facility] [address] [place] [address] Phone Care Team Providers Care Injection Wax Molder Name Role Phone Colton Hart Primary Care Provider [phone] Allergies No known active allergies Medications atorvastatin [...] (#1) 2025 Insurance Medicaid Medicaid Care Teams Injection Wax Molder Relationship Specialty Start Date End Date Colton Hart PA [address] [place] [address], [address] [place] [address] PCP - General Physician Physical Therapy Aides Teacher 11/15/23
--- OUTSIDE RECORDS SUMMARY | 2025-04-15 14:01 | XMS_ITS | Clinical Summary ---
Author Organization [facility] Address [address] [place] [address] Phone Care Team Providers Care Scout Leaser Name Role Phone Colton Hart Primary Care Provider Allergies No known active allergies Medications ezetimibe [...] type, unspecified whether angina present, unspecified whether [place] or transplanted heart Take 1 tablet (50 mg total) by mouth 1 (one) time each day. Do not crush or chew. 90 each 2 5 Active rosuvastatin (CRESTOR) 20 mg tabletIndications :Coronary artery disease, unspecified vessel or lesion type, unspecified whether angina present, unspecified whether [place] or transplanted heart Take 1 tablet (20 mg total) by mouth 1 (one) time each day. 90 each 2 5 Active Active Problems Problem Noted Date Diagnosed Date NSTEMI (non-ST elevated myoc ardial infarction) ([facility] V24, [facility] V28) 11/12/2024 Hypertension 11/12/2024 Assessment & Plan [...] Description 02/24/2025 7:40 AM EDT Office Visit [facility] [address] [place] [address] Lizy Travis NP Coronary artery disease involving [place] heart without angina pectoris, unspecified vessel or lesion type (Primary Dx); Hypertension, unspecified type; Hyperlipidemia, unspecified hyperlipidemia type; Lightheaded from Last 3 Months Surgical History Surgery Date Site/Laterality Comments CARDIAC CATHETERIZATION Done at [facility] on 09/12/23 w/DIEGO/ Indications: NSTEMI [...] Panel) 07/26/2022 Colorectal Cancer Screening: Colonoscopy 07/26/2022 HIV Screening 07/26/2022 Hepatitis C Screening 07/26/2022 Social Influencers of Health Screening 07/26/2022 Hypertension/CHF/CAD Annual BMP Blood Test 03/22/2024 COVID-19 Vaccine ( - 2023-2 5 season) 2024 Depression Screening 08/28/2024 Influenza Vaccine (#1) 2025 HIB Vaccines Aged [...] patient's age to complete this topic Insurance [facility] PLAN Care Teams Scout Leaser Relationship Specialty Start Date End Date Colton Hart PA [address] [place] [address] PCP - General Physician Bail Bond Agent 02/24/25
== END 2025-04-15 13:49 | disposition home or self-care (01) ==
LOC: HO.HMCH 12:52
PROVIDERS: PCP Physician Assistant; Visit Provider Physician Assistant
DX: F41.1 Generalized anxiety disorder (principal); F17.200 Nicotine dependence, unspecified, uncomplicated

== ENCOUNTER 2025-04-26 09:37 | Outpatient (REF) | payer OTHER, SELFPAY ==
--- OUTSIDE RECORDS SUMMARY | 2025-04-26 09:40 | XMS_ITS | Clinical Summary ---
Author Organization [facility] Address [address] [facility] [address] [place] [address] Phone Care Team Providers Care Sample Wrapper Name Role Phone Colton Hart Primary Care Provider [phone] Allergies No known active allergies Medications atorvastatin [...] (#1) 2025 Insurance Medicaid Medicaid Care Teams Sample Wrapper Relationship Specialty Start Date End Date Colton Hart PA [address] [place] [address], [address] [place] [address] PCP - General Physician Photo Engraver 11/15/23
--- OUTSIDE RECORDS SUMMARY | 2025-04-26 09:40 | XMS_ITS | Clinical Summary ---
Author Organization [facility] Address [address] [place] [address] Phone Care Team Providers Care Railway Signal Electrician Name Role Phone Colton Hart Primary Care [...] type, unspecified whether angina present, unspecified whether [place] or transplanted heart Take 1 tablet (50 mg total) by mouth 1 (one) time each day. Do not crush or chew. 90 each 2 5 Active rosuvastatin (CRESTOR) 20 mg tabletIndications :Coronary artery disease, unspecified vessel or lesion type, unspecified whether angina present, unspecified whether [place] or transplanted heart Take 1 tablet (20 mg total) by mouth 1 (one) time each day. 90 each 2 5 Active Active Problems Problem Noted Date Diagnosed Date NSTEMI (non-ST elevated myoc ardial infarction) ([facility] V24, [facility] V28) 11/12/2024 Hypertension 11/12/2024 Assessment & Plan [...] Description 02/24/2025 7:40 AM EDT Office Visit [facility] [address] [place] [address] Lizy Travis NP Coronary artery disease involving [place] heart without angina pectoris, unspecified vessel or lesion type (Primary Dx); Hypertension, unspecified type; Hyperlipidemia, unspecified hyperlipidemia type; Lightheaded from Last 3 Months Surgical History Surgery Date Site/Laterality Comments CARDIAC CATHETERIZATION Done at [facility] on 09/12/23 w/DIEGO/ Indications: NSTEMI Medical History [...] patient's age to complete this topic Insurance [facility] PL[facility] Care Teams Railway Signal Electrician Relationship Specialty Start Date End Date Colton Hart PA [address] [place] [address] PCP - General Physician Motorman/Woman 02/24/25
[2025-04-26 10:04] LABS: Hematocrit 44.2 % (42.0-52.0); Hemoglobin 15.0 g/dl (14.0-18.0); Mean Corpuscular HGB Conc 33.9 g/dl (31.0-36.0); Mean Corpuscular Hemoglobin 29.7 pg (27.0-33.0); Mean Corpuscular Volume 87.5 fL (80.0-98.0); NRBC Abs Auto 0.000 X10*3/uL (0.0-0.012); NRBC Pct Auto 0.0 /100WBC (0.0-0.2); Platelet Count 400 X10*3/uL (160-400); Red Blood Count 5.05 X10*6/uL (4.60-5.80); White Blood Count 9.7 X10*3/uL (4.8-10.8)
[2025-04-26 10:32] LABS: Alanine Aminotransferase 36 U/L (0-40); Albumin Level 4.6 g/dL (3.5-5.0); Alkaline Phosphatase 84 U/L (39-117); Anion Gap 13 (12-20); Aspartate Amino Transferase 22 U/L (5-37); Blood Urea Nitrogen 16 mg/dL (9-16); Calcium 9.5 mg/dL (8.4-10.2); Carbon Dioxide 28 mmol/L (22-29); Chloride 108 mmol/L (96-108); Cholesterol 113 mg/dL (<200); Estimated Glomerular Filt Rate > 60; HDL Cholesterol 40 mg/dL (>40); Potassium 4.7 mmol/L (3.3-5.1); Sodium 144 mmol/L (135-145); Total Protein 7.2 g/dL (6.5-8.0); Triglycerides 50 mg/dL (<150)
[2025-04-26 10:46] LABS: Microalbum/Creatinine Ratio Ur 20.5 ug/mg cr (<30)
[2025-05-01 18:53] LABS: Testosterone, Free 98.2 pg/mL (35.0-155.0)
== END 2025-04-26 09:38 | disposition home or self-care (01) ==
LOC: HO.LAB 09:37
PROVIDERS: PCP Physician Assistant; Visit Provider Physician Assistant
DX: R68.82 Decreased libido (principal); I10 Essential (primary) hypertension; I25.810 Atherosclerosis of coronary artery bypass graft(s) without angina pectoris
CPT/HCPCS: 36415; 80053; 80061; 82043; 82570; 84402; 84403; 85027

== ENCOUNTER 2025-04-30 09:48 | Outpatient (AMB) | payer OTHER, SELFPAY ==
--- NOTE | 2025-04-30 09:49 | MHC.OFFVIS ---
Intake Visit Reasons: Erectile dysfunction Intake Note: New Patient is present for erectile Dysfunction Labs done 05/21/24 Total testosterone 418, Fr Testosterone 49.3 Urology Rx:Tadalafil Blood Thinners: Asprin Clopidogrel Imaging completed: none Overnight Houseperson Required: No Accompanied by: Self / Same As Patient Allergies escitalopram (From Lexapro) Adverse Reaction (Intermediate, Verified 04/30/25 09:57) night sweats sertraline (From Zoloft) Adverse Reaction (Intermediate, Verified 04/30/25 09:57) RLS HPI Comments Details: Cornel is a pleasant male . He is a patient of Dr. Hart . He is seen for the following urologic conditions - erectile dysfunction Erectile Dysfunction He presents today for - initial evaluation of erectile dysfunction Current treatment includes - on demand tadalafil At the time of initial evaluation he experiences - are partial but adequate for vaginal penetration - gradual detumescence after penetration Symptoms have been present for/since - ongoing for past 5 years Nocturnal erections do not occur with regularity Prior therapies include - Treatment side effects include - Associated Medical Conditions include - dyslipidemia, coronary artery disease with quadruple bypass Physical Performance Status good works as a [employer] Atherosclerosis Cardiovascular Disease Risk - significant atherosclerotic risk factors, includes nicotine Medications include(s) use of trazodone at nighttime Investigations include testosterone level checked - 05/21 418 Overall he is not satisfied with current medication Therapeutic plan includes - initiate daily tadalafil PFSH Medical History (Updated 04/15/25 @ 13:12 by Colton Hart PA-C) Leukocytosis Thrombocytosis Full dentures Anxiety Depression Surgical History History of quadruple bypass History of dental surgery Family History Father Lung cancer HTN (hypertension) Hyperlipidemia Colon cancer Mother Breast cancer Hyperlipidemia Thyroid disease IBS (irritable colon syndrome) Maternal Grandmother Paget's bone disease IBS (irritable colon syndrome) Other Mental health disorder Social History Household Members: Family Housing: House Alcohol intake: former Patient Tobacco Use Status: Current someday Tobacco user Tobacco use type: Cigarette Cigarette Packs Per Day: 0.5 Cigarettes Per Day: 10 Years Smoked: 20 e-Cigarette/Vaping Use: Former Use Second Hand Smoke Exposure: Yes Substance Use Type: Marijuana service: No Current occupational status: employed and other Current occupation: Construction Cognitive needs: No Hearing needs: No Vision needs: No Review of Systems Const Denies chills and Denies fever(s) Card Reports no additional complaints and Denies syncope Resp Denies cough GI Denies abdominal pain and Denies heartburn Reports as per HPI and Denies change in libido Neuro Denies syncope Psych Denies change in libido Endo Denies change in libido Physical Exam Const General: cooperative, healthy appearing, comfortable and no acute distress Orientation/consciousness: patient oriented x3 HEENT Face and sinus: Yes normal facial exam Mouth: moist mucous membranes Neck Neck: Yes normal visual inspection, Yes full ROM and Yes trachea midline Chest Chest palpation & inspection: normal inspection of the chest Resp Effort & Inspection: normal respiratory effort, able to speak in complete sentences and no respiratory distress GI Inspection: Yes normal to inspection Back/Spine/Pelvis Cervical Spine: normal cervical lordosis Thoracic/Lumbar Spine: thoracic and lumbar spine normal to inspection Skin General skin exam: no rashes or lesions noted Neuro General: patient oriented x3, gait normal, tone normal and moves all extremities Extrem General: Yes normal to inspection and Yes capillary refill normal Assessment & Plan Assessment & Plan (1) Low libido: Code(s): R68.82 - Decreased libido Category: Medical (2) Erectile dysfunction: Code(s): N52.9 - Male erectile dysfunction, unspecified Category: Medical Qualifiers: Erectile dysfunction type: unspecified Qualified Code(s): N52.9 - Male erectile dysfunction, unspecified Plan 1. Erectile Dysfunction - Start tadalafil 5 mg daily. - Monitor and adjust treatment as needed. 2. Low Testosterone Levels - Repeat testosterone levels in five months. - Implement lifestyle changes for improvement. 3. Coronary Artery Disease - Maintain current cholesterol management. - Promote smoking cessation. 4. Nicotine Dependence - Use nicotine patches and behavioral strategies. 5. Anxiety - Continue clonazepam. - Seek psychological support. Discussion Notes I discussed with the patient the use of tadalafil 5 mg daily for erectile dysfunction, highlighting its benefits for both erectile function and cardiovascular health. We also reviewed the importance of managing stress and improving sleep to potentially enhance testosterone levels. The patient was advised on smoking cessation strategies and the impact of nicotine on vascular health. We talked about the role of clonazepam in managing anxiety and the potential benefits of psychological support. Patient Instructions - Take tadalafil 5 mg daily as prescribed. - Follow up in six months for reassessment. - Work on quitting smoking using patches and behavioral strategies. - Manage stress and improve sleep habits. - Continue clonazepam for anxiety as directed. Orders: Orders Lutenizing Hormone 5 Months N52.9 - Male erectile dysfunction, unspecified Testosterone, Total 5 Months N52.9 - Male erectile dysfunction, unspecified Medications: New tadalafil [id number] [facility] [id number] Member [id number] 5 mg PO DAILY 90 tabs 1RF sexual activity 90 days N52.9 - Male erectile dysfunction, unspecified Patient Instructions: This note is constructed using voice recognition software. While every effort has been made to ensure accuracy perforator loader errors may have been included. Imaging studies, laboratory and physical exam results were discussed and reviewed in detail. No major barriers to patient understanding were identified. An opportunity to ask questions regarding the treatment plan was provided. All questions were answered. The patient expressed understanding and agreement with the above treatment plan. The patient is aware they should contact our office by phone for worsening of their current condition or the appearance of new urologic symptoms. Compliance is encouraged with any medications and followup testing that is ordered. It is a privilege to participate in the urologic care of your patient. If you have any questions or concerns regarding treatment for the above conditions, or other urologic issues, please do not hesitate to contact me. The office telephone contact is [phone]. Sincerely, Dr David Choudhury MD, [facility] - Urology Compassionate Specialist Care for the Genitourinary System Coding Level of Care Code New Pt Level 4 (97375) Diagnoses Low libido R68.82 Erectile dysfunction, unspecified erectile dysfunction type N52.9 Erectile dysfunction type: unspecified
--- OUTSIDE RECORDS SUMMARY | 2025-04-30 10:56 | XMS_ITS | Clinical Summary ---
Author Organization [facility] Address [address] [place] [address] Phone Care Team Providers Care Warping Mill Operator Name Role Phone Colton Hart Primary Care [...] type, unspecified whether angina present, unspecified whether [place] or transplanted heart Take 1 tablet (50 mg total) by mouth 1 (one) time each day. Do not crush or chew. 90 each 2 5 Active rosuvastatin (CRESTOR) 20 mg tabletIndications :Coronary artery disease, unspecified vessel or lesion type, unspecified whether angina present, unspecified whether [place] or transplanted heart Take 1 tablet (20 mg total) by mouth 1 (one) time each day. 90 each 2 5 Active Active Problems Problem Noted Date Diagnosed Date NSTEMI (non-ST elevated myoc ardial infarction) ([facility] V24, [facility] V28) 11/12/2024 Hypertension 11/12/2024 Assessment & [...] Description 02/24/2025 7:40 AM EDT Office Visit [facility] [address] [place] [address] Lizy Travis NP Coronary artery disease involving [place] heart without angina pectoris, unspecified vessel or lesion type (Primary Dx); Hypertension, unspecified type; Hyperlipidemia, unspecified hyperlipidemia type; Lightheaded from Last 3 Months Surgical History Surgery Date Site/Laterality Comments CARDIAC CATHETERIZATION Done at [facility] on 09/12/23 w/DIEGO/ Indications: NSTEMI Medical History [...] patient's age to complete this topic Insurance [facility] Care Teams Warping Mill Operator Relationship Specialty Start Date End Date Colton Hart PA [address] [place] [address] PCP - General Physician Administrative Assistant Receptionist 02/24/25
--- OUTSIDE RECORDS SUMMARY | 2025-04-30 10:56 | XMS_ITS | Clinical Summary ---
Author Organization [facility] Address [address] [facility] [address] [place] [address] Phone Care Team Providers Care Single End Sewer Name Role Phone Colton Hart Primary Care Provider [phone] Allergies No known active allergies Medications atorvastatin [...] (#1) 2025 Insurance Medicaid Medicaid Care Teams Single End Sewer Relationship Specialty Start Date End Date Colton Hart PA [address] [place] [address], [address] [place] [address] PCP - General Physician Fermentation Manager 11/15/23
== END 2025-04-30 10:27 | disposition home or self-care (01) ==
LOC: HO.HUSH 09:49
PROVIDERS: PCP Physician Assistant; Visit Provider Urology
DX: Z13.9 Encounter for screening, unspecified (principal)
CPT/HCPCS: 99204

== ENCOUNTER → 2025-04-30 09:48 | Outpatient (BNVA) | payer OTHER, SELFPAY | PROVIDERS: PCP Physician Assistant; Visit Provider Urology | DX: R68.82 Decreased libido (principal); N52.9 Male erectile dysfunction, unspecified | CPT/HCPCS: 81003; 99202 ==

== ENCOUNTER 2025-07-22 13:50 | Outpatient (AMB) | payer OTHER, SELFPAY ==
--- NOTE | 2025-07-22 13:54 | A.OFFPC_ITS ---
Vital Signs 07/22/25 13:55 Height 6 ft Weight 194 lb 8 oz BMI 26.4 BP 110/70 Blood Pressure Location Lt brachial Position Sitting Pulse 58 Pulse Source Pulse Oximeter Temp 97.3 F Temp Source Temporal Artery Scan Pulse Oximetry (%) 97 Oxygen Delivery Method Room Air Intake Visit Reasons: f/u CAD/ Anxiety Intake Note: Patient is here to follow up on CAD, Anxiety. Mounted Police Officer Required: No Airline Reservation Agent: Not Required per policy Accompanied by: Self / Same As Patient Allergies escitalopram (From Lexapro) Adverse Reaction (Intermediate, Verified 07/22/25 14:10) night sweats sertraline (From Zoloft) Adverse Reaction (Intermediate, Verified 07/22/25 14:10) RLS Medication List - Last Reconciled 07/22/25 by Colton Hart PA-C aspirin 81 mg PO DAILY 90 days cholecalciferol (vitamin D3) (Vitamin D3) 50 mcg PO DAILY clonazepam (Klonopin) 0.5 mg PO BID 30 days docusate sodium (Colace) 100 mg PO BID PRN 30 days ezetimibe 10 mg PO DAILY 90 days metoprolol succinate ER 50 mg PO DAILY nicotine 1 patch transdermal DAILY nicotine 1 patch transdermal DAILY 14 days nicotine 1 patch transdermal DAILY 14 days nicotine (polacrilex) 2 mg buccal Q2H PRN 15 days rosuvastatin 20 mg PO BEDTIME sertraline 50 mg PO DAILY 30 days sertraline 100 mg PO DAILY tadalafil 20 mg PO DAILY PRN 7 days tadalafil 5 mg PO DAILY 90 days trazodone 100 mg PO BEDTIME Tobacco use date assessed: 07/22/25 Dental Screening Dental Screen Date: 02/04/25 HPI f/u CAD/ Anxiety HPI Details Patient is a 50-year-old male here today for follow-up visit. .. Tobacco dependency: He does admit to smoking a few cigarettes per day and does understand he needs to quit especially being a open heart surgery patient. He is interested in restarting the nicotine patches. .. Anxiety: Patient is speaking with a mental health therapist quite regularly. He continues to have quite a bit of anxiety during the day. The patient self-initiated sertraline (Zoloft) before it was prescribed, using a leftover supply from the patient's mother. The patient has been taking 150 mg of sertraline for nearly two weeks, up from 100 mg, and has not experienced any significant side effects. For anxiety, the patient takes clonazepam in the morning and sometimes requires a second dose at night. The patient has also reduced the trazodone dose to 100 mg for sleep. .. Coronary artery disease: Patient is status post coronary artery bypass in 2023. Continues to follow cardiology every 6 months Most recent lipid panel showing excellent control. Patient continues on rosuvastatin 20 mg, aspirin and beta-kobi PFSH Medical History Leukocytosis Thrombocytosis Full dentures Anxiety Depression Surgical History History of quadruple bypass History of dental surgery Family History Father Lung cancer HTN (hypertension) Hyperlipidemia Colon cancer Mother Breast cancer Hyperlipidemia Thyroid disease IBS (irritable colon syndrome) Maternal Grandmother Paget's bone disease IBS (irritable colon syndrome) Other Mental health disorder Social History Household Members: Family Housing: House Alcohol intake: former Patient Tobacco Use Status: Current someday Tobacco user Tobacco use type: Cigarette Cigarette Packs Per Day: 0.5 Cigarettes Per Day: 5 Years Smoked: 20 e-Cigarette/Vaping Use: Former Use Second Hand Smoke Exposure: Yes Substance Use Type: Marijuana service: No Current occupational status: employed and other Current occupation: Construction Cognitive needs: No Hearing needs: No Vision needs: No Questionnaire Thrive Questionnaire Date Thrive assessed: 02/04/25 I am a: Patient What is your living situation today?: I have a place to live, but I am worried about losing it in the future Within the past 12 months, did the food you bought not last and you didn't have the money to get more?: Never true Within the past 12 months, did you worry whether your food would run out before you got money to buy more?: Never true Do you have trouble paying for medicines?: No Do you have trouble getting transportation to medical appointments?: No Do you have trouble paying your heating and electricity bill?: No Do you have trouble taking care of your child, family member or friend?: No Do you have trouble with day-to-day activities such as bathing, preparing meals, shopping, managing finances, etc.?: No Are you currently unemployed and looking for a job?: No Are you interested in more education?: No Please select the resources that you would like help with: None Currently or been in a relationship where the following occur: No concerns reported THRIVE Score: 1 MARCUS-7 AMB Questionnaire MARCUS-7 Date MARCUS - 7 assessed: 02/04/25 Source: Developed by Drs. Riky Roldan, Saida Grace, José Luis Sun and colleagues, with an educational albin from [employer]. Review of Systems Const Denies headache(s) Eyes Denies loss of vision ENT Denies vertigo, Denies dizziness, Denies headache(s) and Denies sore throat Card Denies chest pain, Denies leg edema and Denies lightheadedness Resp Denies cough, Denies hemoptysis and Denies wheezing GI Denies abdominal pain, Denies melena, Denies constipation, Denies diarrhea and Denies vomiting Denies dysuria, Denies urinary frequency and Denies urinary urgency Musc Denies arthralgias, Denies joint swelling, Denies numbness and Denies tingling Neuro Denies Abnormal speech present, Denies behavioral changes, Denies vertigo, Denies dizziness, Denies headache(s), Denies loss of vision, Denies memory loss, Denies numbness and Denies tingling Psych Denies anxiety, Denies behavioral changes, Denies depression, Denies memory loss and Denies panic attacks Chago/Lymph Denies easy bleeding and Denies easy bruising Aller/Immun Denies wheezing Physical exam (Primary Care) Vital Signs: Last Vital Signs Temp 97.3 F 07/22/25 13:55 Pulse 58 07/22/25 13:55 BP 110/70 07/22/25 13:55 Pulse Ox 97 07/22/25 13:55 Oxygen Delivery Method Room Air 07/22/25 13:55 BMI result Body Mass Index 26.4 Tobacco/Smoking Status: Tobacco use Status Tobacco use date assessed 07/22/25 07/22/25 14:02 Patient Tobacco Use Status Current someday Tobacco 07/22/25 14:02 Tobacco use type Cigarette 07/22/25 14:02 e-Cigarette/Vaping Use Former Use 07/22/25 14:02 Are you ready to quit: Yes Tobacco cessation counseling provided: Yes Items discussed: Nicotine replacement Relapse Prevention: discussed the importance of a supportive environment, discussed negative mood or depression after quitting, weight gain after smoking is common and discussed dietary, exercise and/or lifestyle changes Number of minutes spent counselin CPT code: 59446 - 4-10 Minutes Thrive Assessment: Date of Thrive Assessment Date Thrive assessed 02/04/25 07/22/25 14:02 Currently or been in a relationship where the following occur: No concerns reported Const General: healthy appearing, no acute distress, alert and awake Nutritional Appearance: well nourished Orientation/consciousness: oriented to person, oriented to place and oriented to time HENMT Ears: TM's normal bilaterally General nose exam: Normal nasal mucous membranes and turbinates present Eyes Conjunctivae: conjunctivae normal Sclerae: sclerae normal Pupils: Equal, round and reactive pupils present Neck Neck: Yes no lymphadenopathy and Yes no JVD Thyroid: Thyroid normal Carotids: no bruits Resp Effort & Inspection: normal respiratory effort and not tachypneic Auscultation: no crackles, no rales, no rhonchi and no wheezes Cardio Rate: regular rate Rhythm: regular rhythm Heart sounds: no murmurs and normal S1 and S2 GI Palpation (GI): Soft to palpation, nontender, no hepatomegaly and no splenomegaly Auscultation: normal bowel sounds Skin General skin exam: no rashes or lesions noted and dry skin Neuro General: oriented to person, oriented to place and oriented to time Cranial nerves: Yes Equal, round and reactive pupils present Speech: No Abnormal speech present Gait exam (Neuro): Normal gait present Motor exam (neuro): no tremor noted Extrem Right upper extremity: full ROM Left upper extremity: full ROM Right lower extremity: full ROM; no edema Left lower extremity: full ROM; no edema Psych Mental Status: mental status grossly normal Speech and movement: Normal speech and movement present Affect: normal affect Attitude: cooperative Thought process: Normal thought process present Coding Level of Care Code Est Pt Level 4 (53204) Diagnoses MARCUS (generalized anxiety disorder) F41.1 Tobacco dependence F17.200 Coronary artery disease involving coronary bypass graft of [place] heart without angina pectoris I25.810 Associated angina: without angina [place] vs. transplanted heart: [place] heart Additional Codes Vital Signs *Quality* - CPT code: 78812 - 4-10 Minutes ([id number]) Assessment & Plan Assessment & Plan (1) MARCUS (generalized anxiety disorder): Code(s): F41.1 - Generalized anxiety disorder Category: Medical Plan: Patient continues to have anxiety which has been evident for quite some time now. He does speak with a therapist and also is suffering with grief from the past having was mother and getting out of a long-term relationship. The patient will continue sertraline at the current dose of 150 mg daily. We will assess the full effect of this dosage in about four weeks. Prescriptions for sertraline 100 mg and 50 mg will be sent to the pharmacy. To address breakthrough anxiety, the clonazepam prescription will be increased to twice a day as needed. The risks of benzodiazepine dependence and long-term cognitive effects were discussed. (2) Tobacco dependence: Code(s): F17.200 - Nicotine dependence, unspecified, uncomplicated Category: Medical Plan: Patient does understand he needs to quit smoking. He has found it difficult to quit smoking, use his smoking as a stress reliever. He reports only smoking 4-5 cigarettes per day. (3) CAD (coronary artery disease) of artery bypass graft: Comment: Quadruple bypass done in August 2023 Code(s): I25.810 - Atherosclerosis of coronary artery bypass graft(s) without angina pectoris Category: Medical Qualifiers: Associated angina: without angina [place] vs. transplanted heart: [place] heart Qualified Code(s): I25.810 - Atherosclerosis of coronary artery bypass graft(s) without angina pectoris Plan: Patient continues to follow cardiology on a biannual basis. Most recent lipid panel showing excellent control of his total cholesterol. He has been started on metoprolol long-acting formulation. Orders: Orders Lipid Panel Today I25.810 - Atherosclerosis of coronary artery bypass graft(s) without angina pectoris Complete Blood Count no Diff Today I25.810 - Atherosclerosis of coronary artery bypass graft(s) without angina pectoris Comprehensive [place]. Panel Fast Today I25.810 - Atherosclerosis of coronary artery bypass graft(s) without angina pectoris Medications: New sertraline 100 mg PO DAILY 90 tabs 1RF 90 days F41.1 - Generalized anxiety disorder Changed From clonazepam (Klonopin) 0.5 mg PO DAILY 30 days 30 tabs 2RF F41.1 - Generalized anxiety disorder To clonazepam (Klonopin) 0.5 mg PO BID 60 tabs 3RF 30 days F41.1 - Generalized anxiety disorder From sertraline 50 mg PO DAILY 30 days 30 tabs 1RF F41.1 - Generalized anxiety disorder To sertraline 50 mg PO DAILY 90 tabs 1RF 90 days F41.1 - Generalized anxiety disorder
[2025-07-22 13:55] VITALS: BP 110/70; PULSE 58; TEMP 36.3; O2SAT 97; BMI 26.4
--- OUTSIDE RECORDS SUMMARY | 2025-07-22 17:44 | XMS_ITS | Clinical Summary ---
Author Organization [facility] Address [address] [place] [address] Phone Care Team Providers Care Ramp Supervisor Name Role Phone Colton Hart Primary [...] metoprolol succinate (TOPROL-XL) 50 mg 24 hr tabletIndication s:Coronary artery disease, unspecified vessel or lesion type, unspecified whether angina present, unspecified whether [place] or transplanted heart Take 1 tablet (50 mg total) by mouth 1 (one) time each day. Do not crush or chew. 90 each 2 11/16/19 25 Active rosuvastatin (CRESTOR) 20 mg tabletIndication s:Coronary artery disease, unspecified vessel or lesion type, unspecified whether angina present, unspecified whether [place] or transplanted heart TAKE 1 TABLET BY MOUTH DAILY 90 tablet 2 07/21/20 25 Active rosuvastatin (CRESTOR) 20 mg tabletIndication s:Coronary artery disease, unspecified vessel or lesion type, unspecified whether angina present, unspecified whether [place] or transplanted heart Take 1 tablet (20 mg total) by mouth 1 (one) time each day. 90 each 2 11/16/19 25 025 Discontinued Active Problems Problem Noted Date Diagnosed Date NSTEMI (non-ST elevated myoc ardial infarction) ([facility] V24, [facility] V28) 11/12/2024 Hypertension 11/12/2024 Assessment & [...] (one) time each day. Sternal pain 11/12/2024 Surgical History Surgery Date Site/Laterality Comments CARDIAC CATHETERIZATION Done at [facility] on 09/12/23 w/DIEGO/ Indications: NSTEMI Medical History Medical History Date Comments Coronary artery disease Hypertension Family history of premature CAD Former smoker Social History Tobacco Use Types Packs/Day Years Used Date Smoking Tobacco: Every Day Cigarettes 1 Last attempted to quit: 08/28/2023 Smokeless Tobacco: [...] Health Maintenance Due Date Last Done Comments Colorectal Cancer Screening: Colonoscopy 1977 DTaP,Tdap,and Td Vaccines (1 - Tdap) 02/23/1996 Hepatitis B Vaccines (1 of 3 - 19+ 3-dose series) 02/23/1996 Pneumococcal Vaccine: Pediat rics (0 to 5 Years) and At-Risk Patients (6 to 49 Years) (1 of 2 - PCV) 02/23/1996 Cholesterol Screening (Lipid Panel) 07/26/2022 HIV Screening 07/26/2022 Hepatitis C Screening 07/26/2022 Social Influencers of Health Screening 07/26/2022 Hypertension/CHF/CAD Annual BMP Blood Test 03/22/2024 Depression Screening 08/28/2024 COVID-19 Vaccine (1 - 2024-2 6 season) 2025 Influenza Vaccine (#1) 2025 RSV Immunization Adult Patie nts (1 - 1-dose 75+ series) 02/23/2052 HIB Vaccines Aged Out No longer eligi [...] patient's age to complete this topic Insurance [facility] Care Teams Ramp Supervisor Relationship Specialty Start Date End Date Colton Hart PA [address] [place] [id number] PCP - General Physician Car Retarder Operator 02/24/25
--- OUTSIDE RECORDS SUMMARY | 2025-07-22 17:44 | XMS_ITS | Clinical Summary ---
Author Organization [facility] Address [address] [address] [place] [address] Phone Care Team Providers Care Laundry Washer Name Role Phone Colton Hart Primary Care Provider [phone] Allergies No known active allergies Medications atorvastatin [...] (#1) 2025 Insurance Medicaid Medicaid Care Teams Laundry Washer Relationship Specialty Start Date End Date Colton Hart PA [address] [place] [address], [address] [place] [address] PCP - General Physician Recreation Teacher 11/15/23
== END 2025-07-22 14:52 | disposition home or self-care (01) ==
LOC: HO.HMCH 13:51
PROVIDERS: PCP Physician Assistant; Visit Provider Physician Assistant
DX: F41.1 Generalized anxiety disorder (principal); F17.200 Nicotine dependence, unspecified, uncomplicated; I25.810 Atherosclerosis of coronary artery bypass graft(s) without angina pectoris

== ENCOUNTER → 2025-07-22 13:50 | Outpatient (BNVA) | payer OTHER, SELFPAY | PROVIDERS: PCP Physician Assistant; Visit Provider Physician Assistant | DX: F41.1 Generalized anxiety disorder (principal); I25.810 Atherosclerosis of coronary artery bypass graft(s) without angina pectoris; F17.210 Nicotine dependence, cigarettes, uncomplicated | CPT/HCPCS: 99212 ==